=== PATIENT | male | born 1955 | race Caucasian/White ===

== ENCOUNTER 2016-12-16 15:30 | Inpatient (IN) | payer MEDICAID ==
[2016-12-16] VITALS (12 sets, daily range): BP systolic 132–171; BP diastolic 79–103; PULSE 68–81; RESP 15–22; TEMP 97.5–98.9; O2SAT 97–100
[~2016-12-16] VITALS: Ht 170.2 cm; Wt 55.0 kg
[~2016-12-16 15:30] MED LIST: 1-ME1LIQ OR; CIPR500T4 PO; DILA4TAB10 PO; HYDR12.56 PO; LACT20SO4 PO; ZOFR4TAB3 SL; [UNRECOGNIZED DRUG - CODE] PO
--- NOTE | 2016-12-16 15:57 | PD ---
HPI Chief Complaint: Chest Pain Time Seen by Provider: 15:49 Travel History International Travel<30 days: No Contact w/Intl Traveler<30days: No Traveled to known affect area: No History of Present Illness HPI This is a 61 year-old gentleman with a history of hepatocellular carcinoma, hepatitis C, presents today with complaint of left sided chest pain. Patient reports pleuritic pain. He reports pain with movement. He states pain is sharp and stabbing. He reports it's unrelenting. Patient denies any shortness of breath. He does report cough but is unsure whether there is color to his phlegm. The patient denies any abdominal pain. He does have an episode of vomiting bilious material. There are no other complaints time my examination. PFSH Past Medical History Blood Disorders: No Anxiety: Yes Heart Rhythm Problems: No Cancer: Yes (SKIN AND LIVER CANCER) Cardiac Catheterization: No Cardiovascular Problems: Yes High Cholesterol: Yes Congestive Heart Failure: No Diabetes: No Diminished Hearing: No Endocrine: No Genitourinary: No Hepatitis: Yes Hiatal Hernia: No Hypertension: Yes Immune Disorder: No Musculoskeletal: No Neurologic: No Psychiatric: Yes Reproductive: No Respiratory: No Integumentary: Yes (SKIN CANCER ON FACE) Immunizations Current: No Radiation Therapy: Yes (LIVER 10/01/12) Thyroid Disease: No Past Surgical History Abdominal Surgery: No AICD: No Cardiac Surgery: No Coronary Artery Bypass Graft: No Ear Surgery: No Endocrine Surgery: No Eye Surgery: No Genitourinary Surgery: No Gynecologic Surgery: No Joint Replacement: No Oral Surgery: No Pacemaker: No Thoracic Surgery: No Other Surgery: Yes (MRSA, SKIN CANCER X3) Social History Alcohol Use: No Tobacco Use: Yes (1 PPD) Substance Use: Yes (HX OF COCAINE; PT STATES NOT FOR SEVERAL YEARS) Allergies-Medications (Allergen,Severity, Reaction): Coded Allergies: *MDRO Multi-Drug Resistant Organism (Verified Allergy, 07/30/12) MRSA Wound/Skin 11/2011 Reported Meds & Prescriptions Reported Meds & Active Scripts Active Zofran ODT (Ondansetron HCl) 4 Mg Tab 4 Mg SL QID PRN FOR NAUSEA/VOMITING Cipro (Ciprofloxacin HCl) 500 Mg Tab 500 Mg PO BID Hctz (Hydrochlorothiazide) 12.5 Mg Cap 12.5 Mg PO DAILY Amlodipine Besylate 10 Mg Tab 10 Mg OR DAILY Reported Nexavar (Sorafenib Tosylate) 200 Mg Tab 200 Mg PO DAILY Dilaudid (Hydromorphone HCl) 4 Mg Tab 4 Mg PO Q6HPRN Lactulose 30 Ml Syrp 30 Ml PO BID Review of Systems Except as stated in HPI: all other systems reviewed are Neg General / Constitutional: No: Fever, Chills HENT: No: Headaches, Neck Pain Cardiovascular: Positive: Chest Pain or Discomfort (left sided. Sharp stabbing ), No: Palpitations ( 8-9 out of 10 on the pain scale) Respiratory: Positive: Cough, Pleuritic Pain, No: Shortness of Breath, Wheezing , Hemoptysis Gastrointestinal: Positive: Nausea, Vomiting, No: Diarrhea, Abdominal Pain, Hematemesis, Hematochezia Genitourinary: No: Dysuria, Decreased Urinary Output Musculoskeletal: Positive: Pain, No: Weakness Neurologic: Positive: Weakness, No: Dizziness, Headache, Change in Mentation Physical Exam Narrative GENERAL: Ill appearing gentleman in no acute respiratory distress. Patient is complaining of pain. SKIN: Focused skin assessment warm/dry. Patient has multiple excoriated lesions. No cellulitis. No drainage. HEAD: Atraumatic. Normocephalic. EYES: No scleral icterus. No injection or drainage. ENT: No nasal bleeding or discharge. Mucous membranes pink and moist. NECK: Trachea midline. No JVD. Supple. CARDIOVASCULAR: Regular rate and rhythm. No murmur appreciated. Patient has reproducible pain in his left anterior chest wall. There is no deformity. RESPIRATORY: No accessory muscle use. Clear to auscultation. Breath sounds equal bilaterally. GASTROINTESTINAL: Abdomen soft, non-tender, nondistended. MUSCULOSKELETAL: No obvious deformities. No clubbing. No cyanosis. No edema. NEUROLOGICAL: Awake and weak appearing. No obvious cranial nerve deficits. Motor grossly within normal limits. Normal speech. PSYCHIATRIC: Depressed affect. Data Data Last Documented VS Vital Signs Date Time Temp Pulse Resp B/P (MAP) Pulse Ox O2 Delivery O2 Flow Rate FiO2 12/16/16 17:00 81 16 167/95 (119) 97 12/16/16 15:40 Nasal Cannula 2.00 12/16/16 15:35 98.9 Orders Orders Electrocardiogram (12/16/16 16:01) Basic Metabolic Panel (Bmp) (12/16/16 16:01) Ckmb (Isoenzyme) Profile (12/16/16 16:01) Complete Blood Count With Diff (12/16/16 16:01) Magnesium (Mg) (12/16/16 16:01) Prothrombin Time / Inr (Pt) (12/16/16 16:01) Act Partial Throm Time (Ptt) (12/16/16 16:01) Troponin I (12/16/16 16:01) Lipase (12/16/16 16:01) Ecg Monitoring (12/16/16 16:01) Bilateral Bp Monitoring (12/16/16 16:01) Iv Access Insert/Monitor (12/16/16 16:01) Oximetry (12/16/16 16:01) Oxygen Administration (12/16/16 16:01) Sodium Chloride 0.9% Flush (Ns Flush) (12/16/16 16:15) Chest, Pa & Lat (12/16/16 16:01) Ondansetron Inj (Zofran Inj) (12/16/16 16:15) Hydromorphone Pf Inj (Dilaudid Pf Inj) (12/16/16 16:15) Sodium Chlorid 0.9% 500 Ml Inj (Ns 500 M (12/16/16 16:15) Sodium Chlor 0.9% 1000 Ml Inj (Ns 1000 M (12/16/16 16:15) CKMB (12/16/16 16:05) CKMB% (12/16/16 16:05) Heparin Infusion HELEN.Q1H (12/16/16 17:12) Heparin Inj (Heparin Inj) (12/16/16 17:15) Act Partial Throm Time (Ptt) (12/16/16 17:12) Cbc No Diff, Includes Plts (12/16/16 17:12) Cbc No Diff, Includes Plts (12/19/16 06:00) Act Partial Throm Time (Ptt) (12/17/16 00:12) Occult Blood (Hemoccult) Stool (12/16/16 17:12) Aspirin Chew (Aspirin Chew) (12/16/16 17:15) Nitroglycerin 2% Oint (Nitroglycerin 2% (12/16/16 17:15) Consult Cardiology (12/16/16 ) Admit Order (Ed Use Only) (12/16/16 17:16) Labs Laboratory Tests Test 12/16/16 16:05 White Blood Count 19.6 TH/MM3 Red Blood Count 5.50 MIL/MM3 Hemoglobin 15.2 GM/DL Hematocrit 45.3 % Mean Corpuscular Volume 82.4 FL Mean Corpuscular Hemoglobin 27.6 PG Mean Corpuscular Hemoglobin Concent 33.5 % Red Cell Distribution Width 15.4 % Platelet Count 197 TH/MM3 Mean Platelet Volume 10.2 FL Neutrophils (%) (Auto) 93.7 % Lymphocytes (%) (Auto) 2.3 % Monocytes (%) (Auto) 3.7 % Eosinophils (%) (Auto) 0.0 % Basophils (%) (Auto) 0.3 % Neutrophils # (Auto) 18.4 TH/MM3 Lymphocytes # (Auto) 0.5 TH/MM3 Monocytes # (Auto) 0.7 TH/MM3 Eosinophils # (Auto) 0.0 TH/MM3 Basophils # (Auto) 0.1 TH/MM3 CBC Comment DIFF FINAL Differential Comment Prothrombin Time 11.3 SEC Prothromb Time International Ratio 1.0 RATIO Activated Partial Thromboplast Time 24.5 SEC Blood Urea Nitrogen 9 MG/DL Creatinine 1.09 MG/DL Random Glucose 171 MG/DL Calcium Level 9.0 MG/DL Magnesium Level 1.9 MG/DL Sodium Level 135 MEQ/L Potassium Level 3.1 MEQ/L Chloride Level 100 MEQ/L Carbon Dioxide Level 24.7 MEQ/L Anion Gap 10 MEQ/L Estimat Glomerular Filtration Rate 69 ML/MIN Total Creatine Kinase 701 U/L Creatine Kinase MB 89.7 NG/ML Creatine Kinase MB % 12.8 % Troponin I 3.97 NG/ML Lipase 90 U/L [facility] Medical Decision Making Medical Screen Exam Complete: Yes Emergency Medical Condition: Yes Differential Diagnosis ACS versus pneumonia versus pneumothorax versus pleural effusion versus metabolic derangement Narrative Course 61-year-old male with a history of hepatocellular cancer, presents today with complaints of chest pain with associated nausea vomiting. Patient's describes it as sharp stabbing. He reports reproducible in his left upper chest. He also reports pain with movement from side to side. Patient has no cardiac history. EKG shows LVH with what appears to be strain pattern. He had ST depression in his lateral leads.He is he's been given an aspirin. He is also been started on heparin. 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 Diagnosis Primary Impression: Non-ST elevation CT (NSTEMI) Additional Impressions: hepatocellular cancer by history. Leukocytosis Admitting Information Admitting Physician Requests: Admit Condition: Critical Varinder Shipman MD Dec 16, 2016 15:57
[2016-12-16] MEDS ORDERED: SODIUM CHLORID 0.9% 500 ML INJ 500 ML IV ONE (16:15)
[2016-12-16] MEDS ORDERED: ONDANSETRON HCL 4 MG/2 ML VIAL IVP ONE (16:15)
[2016-12-16] MEDS ORDERED: SODIUM CHLORIDE 0.9% FLUSH 10 ML FLUSH IVF PRN (16:15)
[2016-12-16] MEDS ORDERED: HYDROmorphone HCL PF 1 MG/ML VIAL IVS ONE (16:15)
[2016-12-16] MEDS: SODIUM CHLOR 0.9% 1000 ML INJ 1,000 ML IV SCH (16:32)
[2016-12-16 16:34] LABS: APTT (PATIENT) 24.5 SEC (24.3-30.1); PROTHROMBIN TIME - PATIENT 11.3 SEC (9.8-11.6)
[2016-12-16 16:40] LABS: AUTOMATED NEUTROPHIL # 18.4 TH/MM3 (1.8-7.7); BASOPHIL # 0.1 TH/MM3 (0-0.2); BASOPHIL % 0.3 % (0.0-2.0); HEMATOCRIT 45.3 % (39.0-51.0); HEMO FLAGS DIFF FINAL; LYMPH % 2.3 % (9.0-44.0); LYMPHOCYTE # 0.5 TH/MM3 (1.0-4.8); MEAN CELL VOLUME 82.4 FL (80.0-100.0); MEAN CORPUSCULAR HEMOGLOBIN 27.6 PG (27.0-34.0); MEAN CORPUSCULAR HGB CONC 33.5 % (32.0-36.0); MONO % 3.7 % (0.0-8.0); NEUT % 93.7 % (16.0-70.0); PLATELET COUNT 197 TH/MM3 (150-450); RED CELL DISTRIBUTION WIDTH 15.4 % (11.6-17.2); WHITE BLOOD COUNT 19.6 TH/MM3 (4.0-11.0)
[2016-12-16 17:00] LABS: BICARBONATE 24.7 MEQ/L (21.0-32.0); MAGNESIUM 1.9 MG/DL (1.5-2.5); POTASSIUM 3.1 MEQ/L (3.5-5.1)
--- NOTE | 2016-12-16 17:06 | RADRPT ---
EXAM DATE/TIME: 12/16/2016 16:30 [place] COMPARISON: No previous studies available for comparison. INDICATIONS : Chest pain. MEDICAL HISTORY : Hypercholesterolemia. Hypertension SURGICAL HISTORY : None. ENCOUNTER: Initial ACUITY: 1 day PAIN SCORE: 9/10 LOCATION: Bilateral chest Upper Left. FINDINGS: PA and lateral views of the chest demonstrate the lungs to be symmetrically aerated without evidence of mass, infiltrate or effusion. The cardiomediastinal contours are unremarkable. Osseous structure s are intact. CONCLUSION: No acute disease. Jabier Rodríguez MD FACR on December 16, 2016 at 17:02 Board Certified Radiologist. This report was verified electronically.
[2016-12-16 17:15] LABS: CKMB 89.7 NG/ML (0.5-3.6)
[2016-12-16] MEDS ORDERED: ASPIRIN 81 MG CHEW TAB CHEW ONE (17:15)
[2016-12-16] MEDS: HEPARIN SODIUM - IV 10,000 UNITS/10 ML VIAL IV ONE ×2 (17:15→17:55)
[2016-12-16] MEDS ORDERED: NITROGLYCERIN 2% OINT 1 GM PACKET TOPICAL ONE (17:15)
[2016-12-16] MEDS ORDERED: HEPARIN-D5W 25,000 U/250 ML 250 ML IV PRN ×3 (17:41→18:00)
[2016-12-16] MEDS ORDERED: MAGNESIUM HYDROXIDE SUSP 30 ML CUP PO PRN (18:00)
[2016-12-16] MEDS ORDERED: BISACODYL 10 MG SUPP RECTAL PRN (18:00)
[2016-12-16] MEDS ORDERED: HEPARIN SODIUM - IV 10,000 UNITS/10 ML VIAL IV ONE (18:00)
[2016-12-16] MEDS ORDERED: ACETAMINOPHEN 325 MG TAB PO PRN ×2 (18:00)
[2016-12-16] MEDS ORDERED: MORPHINE SULFATE 4 MG/ML INJ IV PRN ×3 (18:00)
[2016-12-16] MEDS ORDERED: SODIUM CHLORIDE 0.9% FLUSH 10 ML FLUSH IV FLUSH PRN ×2 (18:00)
[2016-12-16] MEDS ORDERED: ONDANSETRON HCL 4 MG/2 ML VIAL IVP PRN (18:00)
[2016-12-16] MEDS ORDERED: oxyCODONE/ACETAMINOPHEN 10 MG/325 MG TAB PO PRN (18:00)
[2016-12-16] MEDS ORDERED: DOCUSATE SODIUM 100 MG CAP PO PRN (18:00)
[2016-12-16] MEDS ORDERED: NITROGLYCERIN 0.4 MG SL 25 TABS/BTL SL PRN (18:00)
[2016-12-16] MEDS ORDERED: ONDANSETRON HCL 4 MG/2 ML VIAL IV PRN (18:00)
[2016-12-16] MEDS ORDERED: LACTULOSE SYRUP 20 GM/30 ML CUP PO PRN (18:00)
[2016-12-16] MEDS ORDERED: NALOXONE HCL 0.4 MG/ML AMP IV PRN (18:00)
[2016-12-16] MEDS ORDERED: PROCHLORPERAZINE 25 MG SUPP RECTAL PRN (18:00)
[2016-12-16] MEDS ORDERED: oxyCODONE/ACETAMINOPHEN 5 MG/325 MG TAB PO PRN (18:00)
[2016-12-16] MEDS ORDERED: SENNOSIDES 8.6 MG TAB PO PRN (18:00)
[2016-12-16] MEDS ORDERED: HYDROmorphone HCL 4 MG TAB PO PRN (18:15)
[2016-12-16] MEDS ORDERED: ONDANSETRON ODT 4 MG TAB SL PRN (18:15)
--- NOTE | 2016-12-16 18:24 | HHI.HP ---
[facility] No Primary Care Physician Admission Diagnosis Non stemi, Diagnoses: (1) Non-ST elevation AK (NSTEMI) Diagnosis: Principal (2) Leukocytosis Diagnosis: Secondary (3) Skin lesion Diagnosis: Secondary (4) Liver cancer Diagnosis: Secondary Chief Complaint: Chest pain Travel History International Travel<30 Days: No Contact w/Intl Traveler <30 Da: No Traveled to Known Affected Are: No History of Present Illness This is a 61 year-old gentleman with a history of hepatocellular carcinoma, hepatitis C, presents today with complaint of left sided chest pain. Patient reports pleuritic pain. He reports pain with movement. He states pain is sharp and stabbing. He reports it's unrelenting. Patient denies any shortness of breath. He does report cough but is unsure whether there is color to his phlegm. The patient denies any abdominal pain. He does have an episode of vomiting bilious material. There are no other complaints time my examination. he was found to have a non-ST elevation AK with positive troponins. Will be admitted placed on heparin drip consult cardiology and trend troponins as well as get an echocardiogram Review of Systems Constitutional: COMPLAINS OF: Diaphoretic episodes, DENIES: Fatigue, Fever, Weight gain, Weight loss, Chills, Dizziness Endocrine: DENIES: Heat/cold intolerance, Polydipsia, Polyuria, Polyphagia Eyes: DENIES: Blurred vision, Diplopia, Eye inflammation, Eye pain, Vision loss , Photosensitivity Ears, nose, mouth, throat: DENIES: Tinnitus, Hearing loss, Vertigo, Nasal discharge Respiratory: COMPLAINS OF: Cough, Sputum production, Shortness of breath, DENIES: Apneas, Snoring, Wheezing, Hemoptysis Cardiovascular: COMPLAINS OF: Chest pain, Dyspnea on Exertion, DENIES: Palpitations, Syncope Gastrointestinal: DENIES: Abdominal pain, Black stools, Bloody stools, Constipation, Diarrhea Genitourinary: DENIES: Sexual dysfunction, Urinary frequency, Urinary incontinence Musculoskeletal: DENIES: Joint pain, Muscle aches, Stiffness, Joint Swelling Integumentary: COMPLAINS OF: Abnormal pigmentation (multiple skin cancers), DENIES: Nail changes Hematologic/lymphatic: DENIES: Bruising, Lymphadenopathy Immunologic/allergic: DENIES: Eczema, Urticaria Neurologic: DENIES: Abnormal gait, Headache, Localized weakness, Paresthesias Psychiatric: DENIES: Anxiety, Confusion, Mood changes Past Family Social History Past Medical History Anxiety Skin and liver cancer Hyperlipidemia Hepatitis C Hypertension Depression anxiety History of radiation for liver cancer Past Surgical History History of MRSA and skin cancer 3 Reported Medications Reported Meds & Active Scripts Active Zofran ODT (Ondansetron HCl) 4 Mg Tab 4 Mg SL QID PRN FOR NAUSEA/VOMITING Cipro (Ciprofloxacin HCl) 500 Mg Tab 500 Mg PO BID Hydrochlorothiazide (Miscellaneous Medication) 12.5 Mg Cap 12.5 Mg PO DAILY 1-Methyl 2-Pyrrolidinone (1-Methyl 2-Pyrrolidone (Bulk)) 10 Mg Tab 10 Mg OR DAILY Reported Nexavar (Sorafenib Tosylate) 200 Mg Tab 200 Mg PO DAILY Dilaudid (Hydromorphone HCl) 4 Mg Tab 4 Mg PO Q6HPRN Lactulose 30 Ml Syrp 30 Ml PO BID Allergies: Coded Allergies: *MDRO Multi-Drug Resistant Organism (Verified Allergy, 07/30/12) MRSA Wound/Skin 11/2011 Active Ordered Medications Current Medications Sodium Chloride (NS Flush) 2 ml UNSCH PRN IVF FLUSH AFTER USING IV ACCESS; Start 12/16/16 at 16:15 Ondansetron HCl (Zofran Inj) 4 mg ONCE ONCE IVP Last administered on 16:33; Start 12/16/16 at 16:15; Stop 12/16/16 at 16:16; Status DC Hydromorphone HCl (Dilaudid Pf Inj) 1 mg ONCE ONCE IVS Last administered on 16:34; Start 12/16/16 at 16:15; Stop 12/16/16 at 16:16; Status DC Sodium Chloride 500 ml @ 500 mls/hr BOLUS ONCE IV Last administered on 16:33; Start 12/16/16 at 16:15; Stop 12/16/16 at 17:14; Status DC Sodium Chloride 1,000 ml @ 125 mls/hr Q8H IV Last administered on 12/16/16 16 :32; Start 12/16/16 at 16:15 Heparin Sodium (Porcine) (Heparin Inj) 3,900 units ONCE ONCE IV ; Start at 17:15; Stop 12/16/16 at 18:00; Status DC Aspirin (Aspirin Chew) 324 mg ONCE ONCE CHEW Last administered on 12/16/16 17 :55; Start 12/16/16 at 17:15; Stop 12/16/16 at 17:16; Status DC Nitroglycerin (Nitroglycerin 2% Oint) 1 inch ONCE ONCE TOPICAL Last administered on 12/16/16 17:55; Start 12/16/16 at 17:15; Stop 12/16/16 at 17:17 ; Status DC Heparin Sodium/ Dextrose 250 ml @ 7.8 mls/hr Q32H4M PRN IV Coagulation management; Start 12/16/16 at 17:41; Status Cancel Heparin Sodium (Porcine) (Heparin Inj) 3,200 units ONCE ONCE IV ; Start at 18:00; Stop 12/16/16 at 18:02; Status DC Heparin Sodium/ Dextrose 250 ml @ 6.36 mls/hr [id number] PRN IV Coagulation management; Start 12/16/16 at 18:00 Sodium Chloride (NS Flush) 2 ml BID IV FLUSH ; Start 12/16/16 at 21:00; Status UNV Sodium Chloride (NS Flush) 2 ml UNSCH PRN IV FLUSH FLUSH AFTER USING IV ACCESS ; Start 12/16/16 at 18:00; Status UNV Aspirin (Ecotrin Ec) 325 mg DAILY PO ; Start 12/17/16 at 09:00; Status UNV Nitroglycerin (Nitroglycerin 2% Oint) 1 inch Q6H TOP ; Start 12/16/16 at 18:00; Status UNV Nitroglycerin (Nitrostat Sl) 0.4 mg Q5M PRN SL CHEST PAIN; Start 12/16/16 at 18 :00; Status UNV Morphine Sulfate (Morphine Inj) 4 mg Q3H PRN IV PUSH SEVERE PAIN/CHEST PAIN; Start 12/16/16 at 18:00; Status UNV Acetaminophen (Tylenol) 650 mg Q6H PRN PO HEADACHE OR TEMP > 101 F; Start 12/16 at 18:00; Status UNV Docusate Sodium (Colace) 100 mg BID PRN PO CONSTIPATION; Start 12/16/16 at 18: 00; Status UNV Alprazolam (Xanax) 0.25 mg Q8H PRN PO ANXIETY; Start 12/16/16 at 18:00; Status UNV Ondansetron HCl (Zofran Inj) 4 mg Q6H PRN IV NAUSEA OR VOMITING; Start at 18:00; Status UNV Carvedilol (Coreg) 3.125 mg BID PO ; Start 12/16/16 at 21:00; Status UNV Ramipril (Altace) 2.5 mg DAILY PO ; Start 12/17/16 at 09:00; Status UNV Atorvastatin Calcium (Lipitor) 80 mg HS PO ; Start 12/16/16 at 21:00; Status UNV Heparin Sodium/ Dextrose 250 ml @ 6.36 mls/hr [id number] PRN IV Coagulation management; Start 12/16/16 at 17:54; Status UNV Sodium Chloride (NS Flush) 2 ml UNSCH PRN IV FLUSH FLUSH AFTER USING IV ACCESS ; Start 12/16/16 at 18:00; Status UNV Sodium Chloride (NS Flush) 2 ml BID IV FLUSH ; Start 12/16/16 at 21:00; Status UNV Ondansetron HCl (Zofran Inj) 4 mg Q6H PRN IVP NAUSEA OR VOMITING; Start at 18:00; Status UNV Prochlorperazine (Compazine Supp) 25 mg Q12H PRN HI NAUSEA OR VOMITING; Start 12/16/16 at 18:00; Status UNV Zolpidem Tartrate (Ambien) 5 mg HS PRN PO INSOMNIA; Start 12/16/16 at 18:00; Status UNV Acetaminophen (Tylenol) 650 mg Q6H PRN PO PAIN SCALE 1 TO 2; Start 12/16/16 at 18:00; Status UNV Oxycodone/ Acetaminophen (Percocet 5-325 Mg) 1 tab Q6H PRN PO PAIN SCALE 3 TO 5; Start 12/16/16 at 18:00; Status UNV Oxycodone/ Acetaminophen (Percocet 10-325 Mg) 1 tab Q6H PRN PO PAIN SCALE 6 TO 10; Start 12/16/16 at 18:00; Status UNV Morphine Sulfate (Morphine Inj) 2 mg Q3H PRN IV Pain 3-5; if unable to take PO ; Start 12/16/16 at 18:00; Status UNV Morphine Sulfate (Morphine Inj) 4 mg Q3H PRN IV Pain 6-10;if unable to take PO ; Start 12/16/16 at 18:00; Status UNV Morphine Sulfate (Morphine Inj) 4 mg Q3H PRN IV BREAKTHROUGH PAIN; Start at 18:00; Status UNV Naloxone HCl (Narcan Inj) 0.4 mg UNSCH PRN IV SEE LABEL COMMENTS; Start at 18:00; Status UNV Senna/Docusate Sodium (Kim-Colace) 1 tab BID PO ; Start 12/16/16 at 21:00; Status UNV Magnesium Hydroxide (Milk Of Magnesia Liq) 30 ml Q12H PRN PO MILD - MODERATE CONSTIPATION; Start 12/16/16 at 18:00; Status UNV Sennosides (Senokot) 17.2 mg Q12H PRN PO MODERATE - SEVERE CONSTIPATION; Start 12/16/16 at 18:00; Status UNV Bisacodyl (Dulcolax Supp) 10 mg DAILY PRN RECTAL SEVERE CONSITIPATION; Start at 18:00; Status UNV Lactulose (Lactulose Liq) 30 ml DAILY PRN PO SEVERE CONSITIPATION; Start at 18:00; Status UNV Hydromorphone HCl (Dilaudid) 4 mg Q4H PRN PO PAIN6-10 BREAKTHRU; Start at 18:15; Status UNV Ondansetron HCl (Zofran Odt) 4 mg QID PRN SL NAUSEA OR VOMITING; Start at 18:15; Status UNV Non-Formulary Medication 10 mg DAILY .ROUTE ; Start 12/17/16 at 09:00; Status UNV Non-Formulary Medication 200 mg DAILY PO ; Start 12/17/16 at 09:00; Status UNV Family History Tobacco abuse and hypertension Social History Patient denies any alcohol smokes about a pack per day has a previous history of cocaine in the past none recently Physical Exam Vital Signs Vital Signs Date Time Temp Pulse Resp B/P (MAP) Pulse Ox O2 Delivery O2 Flow Rate FiO2 8/28/17 17:00 81 16 167/95 (119) 97 12/16/16 16:00 69 16 157/88 (111) 97 12/16/16 15:40 85 24 100 12/16/16 15:40 99 Nasal Cannula 2.00 12/16/16 15:35 98.9 74 15 132/79 (96) 100 Physical Exam GENERAL well-developed patient, in some distress. Patient appears quite cachectic and appears ordered and stated age SKIN: No rashes, ecchymoses or lesions. Cool and dry. Has multiple areas where has skin cancer over his body HEAD: Atraumatic. Normocephalic. No temporal or scalp tenderness. EYES: Pupils equal round and reactive. Extraocular motions intact. No scleral icterus. No injection or drainage. ENT: Nose without bleeding, purulent drainage or septal hematoma. Throat without erythema, tonsillar hypertrophy or exudate. Uvula midline. Airway patent. NECK: Trachea midline. No JVD or lymphadenopathy. Supple, nontender, no meningeal signs. CARDIOVASCULAR: Regular rate and rhythm without murmurs, gallops, or rubs. S1 and S2 no S3 or S4 RESPIRATORY: Clear to auscultation. Breath sounds equal bilaterally. No wheezes , rales, or rhonchi. Coarse breath sounds bilaterally GASTROINTESTINAL: Abdomen soft, non-tender, nondistended. No hepato-splenomegaly , or palpable masses. No guarding. MUSCULOSKELETAL: Extremities without clubbing, cyanosis, or edema. No joint tenderness, effusion, or edema noted. No calf tenderness. Negative Homans sign bilaterally. NEUROLOGICAL: Awake and alert. Cranial nerves II through XII intact. Motor and sensory grossly within normal limits. Five out of 5 muscle strength in all muscle groups. Normal speech. Insight and judgment appear good mood and behavior is somewhat appropriate Laboratory Laboratory Tests Test 12/16/16 16:05 White Blood Count 19.6 Red Blood Count 5.50 Hemoglobin 15.2 Hematocrit 45.3 Mean Corpuscular Volume 82.4 Mean Corpuscular Hemoglobin 27.6 Mean Corpuscular Hemoglobin Concent 33.5 Red Cell Distribution Width 15.4 Platelet Count 197 Mean Platelet Volume 10.2 Neutrophils (%) (Auto) 93.7 Lymphocytes (%) (Auto) 2.3 Monocytes (%) (Auto) 3.7 Eosinophils (%) (Auto) 0.0 Basophils (%) (Auto) 0.3 Neutrophils # (Auto) 18.4 Lymphocytes # (Auto) 0.5 Monocytes # (Auto) 0.7 Eosinophils # (Auto) 0.0 Basophils # (Auto) 0.1 CBC Comment DIFF FINAL Differential Comment Prothrombin Time 11.3 Prothromb Time International Ratio 1.0 Activated Partial Thromboplast Time 24.5 Blood Urea Nitrogen 9 Creatinine 1.09 Random Glucose 171 Calcium Level 9.0 Magnesium Level 1.9 Sodium Level 135 Potassium Level 3.1 Chloride Level 100 Carbon Dioxide Level 24.7 Anion Gap 10 Estimat Glomerular Filtration Rate 69 Total Creatine Kinase 701 Creatine Kinase MB 89.7 Creatine Kinase MB % 12.8 Troponin I 3.97 Lipase 90 Result Diagram: 12/16/16 1605 12/16/16 1605 Imaging Chest x-ray shows no acute disease Caprini VTE Risk Assessment Caprini VTE Risk Assessment: Mod/High Risk (score >= 2) Caprini Risk Assessment Model Point Value = 1 Point Value = 2 Point Value = 3 Point Value = 5 Age 41-60 Minor surgery BMI > 25 kg/m2 Swollen legs Varicose veins or History of unexplained or recurrent spontaneous Oral contraceptives or hormone replacement Sepsis (< 1 month) Serious lung disease, including pneumonia (< 1 month) Abnormal pulmonary function Acute myocardial infarction Congestive heart failure (< 1 month) History of inflammatory bowel disease Medical patient at bed rest Age 61-74 Arthroscopic surgery Major open surgery (> 45 min) Laparoscopic surgery (> 45 min) Malignancy Confined to bed (> 72 hours) Immobilizing plaster cast Central venous access Age >= 75 History of VTE Family history of VTE Factor V Leiden Prothrombin [id number] Lupus anticoagulant Anticardiolipin antibodies Elevated serum homocysteine Heparin-induced thrombocytopenia Other congenital or acquired thrombophilia Stroke (< 1 month) Elective arthroplasty Hip, pelvis, or leg fracture Acute spinal cord injury (< 1 month) Prophylaxis Regimen Total Risk Factor Score Risk Level Prophylaxis Regimen 0-1 Low Early ambulation 2 Moderate Order ONE of the following: *Sequential Compression Device (SCD) *Heparin 5000 units SQ BID 3-4 Higher Order ONE of the following medications: *Heparin 5000 units SQ TID *Enoxaparin/Lovenox 40 mg SQ daily (WT < 150 kg, CrCl > 30 mL/min) *Enoxaparin/Lovenox 30 mg SQ daily (WT < 150 kg, CrCl > 10-29 mL/min) *Enoxaparin/Lovenox 30 mg SQ BID (WT < 150 kg, CrCl > 30 mL/min) AND/OR *Sequential Compression Device (SCD) 5 or more Highest Order ONE of the following medications: *Heparin 5000 units SQ TID (Preferred with Epidurals) *Enoxaparin/Lovenox 40 mg SQ daily (WT < 150 kg, CrCl > 30 mL/min) *Enoxaparin/Lovenox 30 mg SQ daily (WT < 150 kg, CrCl > 10-29 mL/min) *Enoxaparin/Lovenox 30 mg SQ BID (WT < 150 kg, CrCl > 30 mL/min) AND *Sequential Compression Device (SCD) Assessment and Plan Problem List: (1) Hypertension ICD Code: I10 - Essential (primary) hypertension (2) Anxiety ICD Code: F41.9 - Anxiety disorder, unspecified (3) Depression ICD Code: F32.9 - Major depressive disorder, single episode, unspecified (4) Tobacco abuse ICD Code: Z72.0 - Tobacco use (5) Hepatitis C ICD Code: B19.20 - Unspecified viral hepatitis C without hepatic coma (6) Liver cancer ICD Code: C22.9 - Malignant neoplasm of liver, not specified as primary or secondary (7) Skin lesion ICD Code: L98.9 - Skin lesion Status: Acute (8) Non-ST elevation AK (NSTEMI) ICD Code: I21.4 - Non-ST elevation (NSTEMI) myocardial infarction Status: Acute (9) Leukocytosis ICD Code: D72.829 - Elevated white blood cell count, unspecified Status: Acute Assessment and Plan Non-ST elevation AK we'll trend troponins consult cardiology continue on heparin drip continue on aspirin and Nitropaste We'll get an echocardiogram Pain control Hepatocellular carcinoma and history of hepatitis C still undergoing treatment with oral chemotherapy Leukocytosis a.m. labs and trend Hypertension home meds Hyperlipidemia home meds Tobacco abuse smoking cessation recommended Anxiety and anti-anxiety medications Code Status Full code Discussed Condition With ER physician ER nurse and patient Physician Certification 2 Midnight Certification Type: Admission for Inpatient Services Order for Inpatient Services The services are ordered in accordance with Medicare regulations or non- Medicare payer requirements, as applicable. In the case of services not specified as inpatient-only, they are appropriately provided as inpatient services in accordance with the 2-midnight benchmark. Estimated LOS (days): 3 3 days is the estimated time the patient will need to remain in the hospital, assuming treatment plan goals are met and no additional complications. Post-Hospital Plan: Not yet determined Jabier Conti DO Dec 16, 2016 18:24
[2016-12-16] MEDS ORDERED: RESP: ALBUTEROL 2.5 MG/IPRATROPIUM 0.5 MG NEB (PRN) NEB (18:30)
[2016-12-16] MEDS: MORPHINE SULFATE 4 MG/ML INJ IV PRN (19:03)
[2016-12-16] MEDS ORDERED: NICOTINE 14 MG/24 HR PATCH T-DERMAL ONE (20:00)
[2016-12-16] MEDS: CARVEDILOL 3.125 MG TAB PO SCH (20:52)
[2016-12-16] MEDS: guaiFENesin E.R. 600 MG TAB PO SCH (21:00)
[2016-12-16] MEDS: LACTULOSE SYRUP 20 GM/30 ML CUP PO SCH (21:00)
[2016-12-16] MEDS: SODIUM CHLORIDE 0.9% FLUSH 10 ML FLUSH IV FLUSH SCH (21:00)
[2016-12-16] MEDS ORDERED: ATORVASTATIN 80 MG TAB PO SCH (21:00)
[2016-12-16] MEDS ORDERED: SODIUM CHLORIDE 0.9% FLUSH 10 ML FLUSH IV FLUSH SCH (21:00)
[2016-12-16] MEDS ORDERED: DOCUSATE SODIUM 50 MG/SENNA 8.6 MG TAB PO SCH (21:00)
[2016-12-17] VITALS (18 sets, daily range): BP systolic 136–178; BP diastolic 74–106; PULSE 76–115; RESP 18–20; TEMP 97.4–98.9; O2SAT 96–99
[2016-12-17] MEDS: MORPHINE SULFATE 4 MG/ML INJ IV PRN ×2 (00:14→03:36)
[2016-12-17] MEDS: SODIUM CHLOR 0.9% 1000 ML INJ 1,000 ML IV SCH ×3 (00:15→16:15)
[2016-12-17] MEDS: NITROGLYCERIN 2% OINT 1 GM PACKET TOP SCH ×4 (00:15→18:15)
[2016-12-17] MEDS: ZOLPIDEM TARTRATE 5 MG TAB PO PRN (00:15)
[2016-12-17 00:46] LABS: APTT (PATIENT) 31.1 SEC (24.3-30.1)
[2016-12-17 01:34] LABS: CREATINE KINASE 3153 U/L (39-308)
[2016-12-17 02:01] LABS: CKMB 486.6 NG/ML (0.5-3.6)
[2016-12-17] MEDS: HYDROmorphone HCL 2 MG TAB PO PRN ×4 (05:42→19:51)
--- NOTE | 2016-12-17 06:56 | MB ---
cc: ERIC INMAN DATE OF CONSULTATION 12/16/2016 HISTORY OF PRESENT ILLNESS A 61-year-old white male with a history of hepatocellular carcinoma and hepatitis C who presented with left parasternal chest discomfort which is sharp and stabbing. He has not had shortness of breath. He complains of cough. He has no previous cardiac history. He is a smoker. PAST MEDICAL HISTORY Positive for - 1. Anxiety. 2. Skin cancer. 3. Liver cancer. 4. Hyperlipidemia. 5. Hepatitis C. 6. Hypertension. 7. Depression. 8. Anxiety. 9. History of radiation for liver cancer . 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 11. Skin cancer surgery. MEDICATIONS 1. Lactulose. 2. Dilaudid. 3. Nexavar. 5. Hydrochlorothiazide. 6. Cipro. 7. Zofran. ALLERGIES No known medical allergies. SOCIAL HISTORY The patient is a smoker. He does not drink alcohol. He has a previous history of cocaine use. FAMILY HISTORY Negative for coronary artery disease. REVIEW OF SYSTEMS Otherwise negative. PHYSICAL EXAMINATION VITAL SIGNS: Blood pressure 168/94, pulse 70 and regular. HEENT: Negative. NECK: 2+ carotid upstrokes. No bruits. LUNGS: Clear. HEART: Regular. No murmur, gallop or rub. ABDOMEN: Soft. No bruits. EXTREMITIES: Without edema. 2+ distal pulses. NEUROLOGIC: Grossly nonfocal. SKIN: Multiple lesions. EKG Reviewed and showed normal sinus rhythm, LVH with minimal secondary ST-T changes. LABS Hemoglobin 15.2, potassium 3.1, creatinine 1.1, magnesium 1.9. CK 701, CK-MB 89.7, CK-MB index 12.8, troponin 3.94. DIAGNOSES 1. Uik-XS-affmfbllb myocardial infarction. 2. Hypertension. 3. Dyslipidemia. 4. Smoking. 5. Hepatocellular carcinoma, status post radiation. DISPOSITION 1. Mr. Olivera will be started on IV heparin, nitrates, beta isabel, aspirin and a statin. 2. We will obtain serial enzymes and EKGs. 3. He will be scheduled for cardiac catheterization and coronary intervention if necessary tomorrow. He understands the risks and benefits and wishes to proceed. Eric Inman MD OQ/TARA /7:11 PM /6:38 AM SHANTELLE
[2016-12-17 07:32] LABS: ANION GAP 12 MEQ/L (5-15); AST (GOT) 558 U/L (15-37); BICARBONATE 24.3 MEQ/L (21.0-32.0); BLOOD UREA NITROGEN 12 MG/DL (7-18); CHLORIDE 102 MEQ/L (98-107); GLOMERULAR FILTRATION RATE 138 ML/MIN (>89); MAGNESIUM 1.9 MG/DL (1.5-2.5); SODIUM (NA) 138 MEQ/L (136-145)
[2016-12-17 07:33] LABS: AUTOMATED NEUTROPHIL # 15.5 TH/MM3 (1.8-7.7); HEMATOCRIT 42.2 % (39.0-51.0); HEMO FLAGS DIFF FINAL; LYMPH % 7.7 % (9.0-44.0); LYMPHOCYTE # 1.3 TH/MM3 (1.0-4.8); MEAN CELL VOLUME 82.4 FL (80.0-100.0); MEAN CORPUSCULAR HEMOGLOBIN 27.3 PG (27.0-34.0); MEAN CORPUSCULAR HGB CONC 33.1 % (32.0-36.0); MONO % 3.3 % (0.0-8.0); PLATELET COUNT 189 TH/MM3 (150-450); RED BLOOD COUNT 5.12 MIL/MM3 (4.50-5.90); RED CELL DISTRIBUTION WIDTH 15.2 % (11.6-17.2); WHITE BLOOD COUNT 17.5 TH/MM3 (4.0-11.0)
[2016-12-17 07:40] LABS: ALKALINE PHOSPHATASE 92 U/L (45-117); ALT (GPT) 99 U/L (12-78); CREATINE KINASE 3229 U/L (39-308); HDL CHOLESTEROL 35.8 MG/DL (40.0-60.0); LDL CHOLESTEROL 104 MG/DL (0-99); TOTAL BILIRUBIN ADULT 0.5 MG/DL (0.2-1.0)
[2016-12-17 07:41] LABS: FREE T4 1.23 NG/DL (0.76-1.46)
[2016-12-17 07:44] LABS: POTASSIUM 2.8 MEQ/L (3.5-5.1)
[2016-12-17 08:21] LABS: CKMB 501.1 NG/ML (0.5-3.6)
--- NOTE | 2016-12-17 08:21 | HHI.PR ---
Subjective Remarks This is a 61 year-old gentleman with a history of hepatocellular carcinoma, hepatitis C, presents today with complaint of left sided chest pain. Patient reports pleuritic pain. He reports pain with movement. He states pain is sharp and stabbing. He reports it's unrelenting. Patient denies any shortness of breath. He does report cough but is unsure whether there is color to his phlegm. The patient denies any abdominal pain. He does have an episode of vomiting bilious material. There are no other complaints time my examination. he was found to have a non-ST elevation GA with positive troponins. Will be admitted placed on heparin drip consult cardiology and trend troponins as well as get an echocardiogram 12-17 replace potassium POSITIVE TROPONINS NEEDS CARDIAC CATH PAIN IS 10/10 AM LABS DW CARDIOLOGY HOPEFULLY FOR CARDIAC CATH TODAY DUE TO VERY POSITIVE TROPONINS Objective Vitals Vital Signs Date Time Temp Pulse Resp B/P (MAP) Pulse Ox O2 Delivery O2 Flow Rate FiO2 12/17/16 06:00 78 12/17/16 05:00 96 12/17/16 04:00 98.1 85 20 158/98 (118) 98 12/17/16 04:00 92 12/17/16 03:11 78 12/17/16 03:00 76 12/17/16 02:00 78 12/17/16 01:00 84 12/17/16 00:43 78 12/17/16 00:00 76 12/17/16 00:00 98.2 78 18 164/90 (114) 99 12/16/16 23:10 79 12/16/16 23:00 78 12/16/16 22:55 71 12/16/16 22:00 72 12/16/16 21:55 97.5 75 22 171/103 (125) 99 12/16/16 21:53 97 Nasal Cannula 2.00 12/16/16 21:50 12/16/16 19:09 70 168/94 (118) 98 Room Air 12/16/16 18:00 68 16 169/94 (119) 97 12/16/16 17:00 81 16 167/95 (119) 97 12/16/16 16:00 69 16 157/88 (111) 97 12/16/16 15:40 85 24 100 12/16/16 15:40 99 Nasal Cannula 2.00 12/16/16 15:35 98.9 74 15 132/79 (96) 100 I/O 12/16/16 12/16/16 12/16/16 12/17/16 12/17/16 12/17/16 07:00 15:00 23:00 07:00 15:00 23:00 Intake Total 758.30 ml 1125 ml Balance 758.30 ml 1125 ml Intake IV Total 758.30 ml 1125 ml # Voids 2 # Bowel Movements 0 Result Diagram: 12/17/16 0518 12/17/16 0518 Other Results Laboratory Tests Test 12/16/16 16:05 12/16/16 23:38 12/17/16 05:18 White Blood Count 19.6 TH/MM3 17.5 TH/MM3 Red Blood Count 5.50 MIL/MM3 5.12 MIL/MM3 Hemoglobin 15.2 GM/DL 14.0 GM/DL Hematocrit 45.3 % 42.2 % Mean Corpuscular Volume 82.4 FL 82.4 FL Mean Corpuscular Hemoglobin 27.6 PG 27.3 PG Mean Corpuscular Hemoglobin Concent 33.5 % 33.1 % Red Cell Distribution Width 15.4 % 15.2 % Platelet Count 197 TH/MM3 189 TH/MM3 Mean Platelet Volume 10.2 FL 10.4 FL Neutrophils (%) (Auto) 93.7 % 89.0 % Lymphocytes (%) (Auto) 2.3 % 7.7 % Monocytes (%) (Auto) 3.7 % 3.3 % Eosinophils (%) (Auto) 0.0 % 0.0 % Basophils (%) (Auto) 0.3 % 0.0 % Neutrophils # (Auto) 18.4 TH/MM3 15.5 TH/MM3 Lymphocytes # (Auto) 0.5 TH/MM3 1.3 TH/MM3 Monocytes # (Auto) 0.7 TH/MM3 0.6 TH/MM3 Eosinophils # (Auto) 0.0 TH/MM3 0.0 TH/MM3 Basophils # (Auto) 0.1 TH/MM3 0.0 TH/MM3 CBC Comment DIFF FINAL DIFF FINAL Differential Comment Prothrombin Time 11.3 SEC Prothromb Time International Ratio 1.0 RATIO Activated Partial Thromboplast Time 24.5 SEC 31.1 SEC Blood Urea Nitrogen 9 MG/DL 12 MG/DL Creatinine 1.09 MG/DL 0.60 MG/DL Random Glucose 171 MG/DL 116 MG/DL Calcium Level 9.0 MG/DL 8.4 MG/DL Magnesium Level 1.9 MG/DL 1.9 MG/DL Sodium Level 135 MEQ/L 138 MEQ/L Potassium Level 3.1 MEQ/L 2.8 MEQ/L Chloride Level 100 MEQ/L 102 MEQ/L Carbon Dioxide Level 24.7 MEQ/L 24.3 MEQ/L Anion Gap 10 MEQ/L 12 MEQ/L Estimat Glomerular Filtration Rate 69 ML/MIN 138 ML/MIN Total Creatine Kinase 701 U/L 3153 U/L 3229 U/L Creatine Kinase MB 89.7 NG/ML 486.6 NG/ML Creatine Kinase MB % 12.8 % 15.4 % Troponin I 3.97 NG/ML GREATER THAN 40.00 NG/ML GREATER THAN 40.00 NG/ML Lipase 90 U/L Total Protein 7.9 GM/DL Albumin 2.9 GM/DL Phosphorus Level 2.2 MG/DL Alkaline Phosphatase 92 U/L Aspartate Amino Transf (AST/SGOT) 558 U/L Alanine Aminotransferase (ALT/SGPT) 99 U/L Total Bilirubin 0.5 MG/DL Triglycerides Level 64 MG/DL Cholesterol Level 153 MG/DL LDL Cholesterol 104 MG/DL HDL Cholesterol 35.8 MG/DL Cholesterol/HDL Ratio 4.27 RATIO Free Thyroxine 1.23 NG/DL Thyroid Stimulating Hormone 3rd Gen 0.116 uIU/ML Imaging Last Impressions Chest X-Ray 12/16/16 1601 Signed Impressions: Service Date/Time: Friday, December 16, 2016 16:30 - CONCLUSION: No acute disease. Jabier Rodríguez MD FACR Objective Remarks GENERAL: HAVING PAIN EVERYWHERE SKIN: Warm and dry.MULTIPLE AREAS OF SKIN CANCER HEAD: Atraumatic. Normocephalic. EYES: Pupils equal and round. No scleral icterus. No injection or drainage. EOMI ENT: No nasal bleeding or discharge. Mucous membranes pink and moist. TONGUE MIDLINE NECK: Trachea midline. No JVD. CARDIOVASCULAR: Regular rate and rhythm. S1, S2 NO S3 OR S4 RESPIRATORY: No accessory muscle use. Clear to auscultation. Breath sounds equal bilaterally. GASTROINTESTINAL: Abdomen soft, non-tender, nondistended. Hepatic and splenic margins not palpable. MUSCULOSKELETAL: Extremities without clubbing, cyanosis, or edema. No obvious deformities. NEUROLOGICAL: Awake and alert. No obvious cranial nerve deficits. Motor grossly within normal limits. Five out of 5 muscle strength in the arms and legs. Normal speech. PSYCHIATRIC: Appropriate mood and affect; insight and judgment normal. Medications and IVs Current Medications Sodium Chloride (NS Flush) 2 ml UNSCH PRN IVF FLUSH AFTER USING IV ACCESS; Start 12/16/16 at 16:15; Stop 12/16/16 at 19:40; Status DC Ondansetron HCl (Zofran Inj) 4 mg ONCE ONCE IVP Last administered on 16:33; Start 12/16/16 at 16:15; Stop 12/16/16 at 16:16; Status DC Hydromorphone HCl (Dilaudid Pf Inj) 1 mg ONCE ONCE IVS Last administered on 16:34; Start 12/16/16 at 16:15; Stop 12/16/16 at 16:16; Status DC Sodium Chloride 500 ml @ 500 mls/hr BOLUS ONCE IV Last administered on 16:33; Start 12/16/16 at 16:15; Stop 12/16/16 at 17:14; Status DC Sodium Chloride 1,000 ml @ 125 mls/hr Q8H IV Last administered on 12/17/16 05 :22; Start 12/16/16 at 16:15 Heparin Sodium (Porcine) (Heparin Inj) 3,900 units ONCE ONCE IV ; Start at 17:15; Stop 12/16/16 at 18:00; Status DC Aspirin (Aspirin Chew) 324 mg ONCE ONCE CHEW Last administered on 12/16/16 17 :55; Start 12/16/16 at 17:15; Stop 12/16/16 at 17:16; Status DC Nitroglycerin (Nitroglycerin 2% Oint) 1 inch ONCE ONCE TOPICAL Last administered on 12/16/16 17:55; Start 12/16/16 at 17:15; Stop 12/16/16 at 17:17 ; Status DC Heparin Sodium/ Dextrose 250 ml @ 7.8 mls/hr Q32H4M PRN IV Coagulation management; Start 12/16/16 at 17:41; Status Cancel Heparin Sodium (Porcine) (Heparin Inj) 3,200 units ONCE ONCE IV Last administered on 12/16/16 18:15; Start 12/16/16 at 18:00; Stop 12/16/16 at 18:02 ; Status DC Heparin Sodium/ Dextrose 250 ml @ 6.36 mls/hr A76H80H PRN IV Coagulation management Last administered on 12/16/16 18:16; Start 12/16/16 at 18:00; Stop 12/16/16 at 19:40; Status DC Sodium Chloride (NS Flush) 2 ml BID IV FLUSH ; Start 12/16/16 at 21:00 Sodium Chloride (NS Flush) 2 ml UNSCH PRN IV FLUSH FLUSH AFTER USING IV ACCESS ; Start 12/16/16 at 18:00 Aspirin (Ecotrin Ec) 325 mg DAILY PO ; Start 12/17/16 at 09:00 Nitroglycerin (Nitroglycerin 2% Oint) 1 inch Q6H TOP Last administered on 05:23; Start 12/17/16 at 00:00 Nitroglycerin (Nitrostat Sl) 0.4 mg Q5M PRN SL CHEST PAIN; Start 12/16/16 at 18 :00 Morphine Sulfate (Morphine Inj) 4 mg Q3H PRN IV SEVERE PAIN/CHEST PAIN Last administered on 12/17/16 03:36; Start 12/16/16 at 18:45 Acetaminophen (Tylenol) 650 mg Q6H PRN PO HEADACHE OR TEMP > 101 F; Start 12/16 at 18:00 Docusate Sodium (Colace) 100 mg BID PRN PO CONSTIPATION; Start 12/16/16 at 18: 00; Stop 12/16/16 at 19:45; Status DC Alprazolam (Xanax) 0.25 mg Q8H PRN PO ANXIETY; Start 12/16/16 at 18:00 Ondansetron HCl (Zofran Inj) 4 mg Q6H PRN IV NAUSEA OR VOMITING; Start at 18:00; Stop 12/16/16 at 19:41; Status DC Carvedilol (Coreg) 3.125 mg BID PO Last administered on 12/16/16 20:52; Start 12/16/16 at 21:00 Ramipril (Altace) 2.5 mg DAILY PO ; Start 12/17/16 at 09:00 Atorvastatin Calcium (Lipitor) 80 mg HS PO Last administered on 12/16/16 21:19 ; Start 12/16/16 at 21:00 Heparin Sodium/ Dextrose 250 ml @ 6.36 mls/hr Q24H PRN IV Coagulation management Last administered on 12/16/16 20:38; Start 12/16/16 at 17:54 Sodium Chloride (NS Flush) 2 ml UNSCH PRN IV FLUSH FLUSH AFTER USING IV ACCESS ; Start 12/16/16 at 18:00; Stop 12/16/16 at 19:40; Status DC Sodium Chloride (NS Flush) 2 ml BID IV FLUSH ; Start 12/16/16 at 21:00; Stop at 21:00; Status DC Ondansetron HCl (Zofran Inj) 4 mg Q6H PRN IVP NAUSEA OR VOMITING; Start at 18:00 Prochlorperazine (Compazine Supp) 25 mg Q12H PRN RECTAL NAUSEA OR VOMITING; Start 12/16/16 at 18:00; Stop 12/16/16 at 20:45; Status DC Zolpidem Tartrate (Ambien) 5 mg HS PRN PO INSOMNIA Last administered on 00:15; Start 12/16/16 at 18:00 Acetaminophen (Tylenol) 650 mg Q6H PRN PO PAIN SCALE 1 TO 2; Start 12/16/16 at 18:00 Oxycodone/ Acetaminophen (Percocet 5-325 Mg) 1 tab Q6H PRN PO PAIN SCALE 3 TO 5; Start 12/16/16 at 18:00 Oxycodone/ Acetaminophen (Percocet 10-325 Mg) 1 tab Q6H PRN PO PAIN SCALE 6 TO 10; Start 12/16/16 at 18:00 Morphine Sulfate (Morphine Inj) 2 mg Q3H PRN IV Pain 3-5; if unable to take PO ; Start 12/16/16 at 18:00 Morphine Sulfate (Morphine Inj) 4 mg Q3H PRN IV Pain 6-10;if unable to take PO ; Start 12/16/16 at 18:00 Morphine Sulfate (Morphine Inj) 4 mg Q3H PRN IV BREAKTHROUGH PAIN; Start at 18:00 Naloxone HCl (Narcan Inj) 0.4 mg UNSCH PRN IV SEE LABEL COMMENTS; Start at 18:00 Senna/Docusate Sodium (Kim-Colace) 1 tab BID PO ; Start 12/16/16 at 21:00; Stop 12/16/16 at 21:00; Status DC Magnesium Hydroxide (Milk Of Magnesia Liq) 30 ml Q12H PRN PO MILD - MODERATE CONSTIPATION; Start 12/16/16 at 18:00 Sennosides (Senokot) 17.2 mg Q12H PRN PO MODERATE - SEVERE CONSTIPATION; Start 12/16/16 at 18:00 Bisacodyl (Dulcolax Supp) 10 mg DAILY PRN RECTAL SEVERE CONSITIPATION; Start at 18:00 Lactulose (Lactulose Liq) 30 ml DAILY PRN PO SEVERE CONSITIPATION; Start at 18:00 Hydromorphone HCl (Dilaudid) 4 mg Q4H PRN PO BREAKTHROUG PAIN 6-10; Start 12/16 at 18:15; Stop 12/17/16 at 05:33; Status DC Lactulose (Lactulose Liq) 30 ml BID PO ; Start 12/16/16 at 21:00 Ondansetron HCl (Zofran Odt) 4 mg QID PRN SL NAUSEA OR VOMITING; Start at 18:15 Non-Formulary Medication 10 mg DAILY .ROUTE ; Start 12/17/16 at 09:00; Status UNV Non-Formulary Medication 200 mg DAILY PO ; Start 12/17/16 at 09:00; Status UNV Nicotine (Habitrol 14 Mg Patch.24 Hr) 1 patch ONCE ONCE T-DERMAL Last administered on 12/16/16t 20:52; Start 12/16/16 at 20:00; Stop 12/16/16 at 20:01 ; Status DC Nicotine (Habitrol 14 Mg Patch.24 Hr) 1 patch DAILY T-DERMAL ; Start 12/17/16 at 09:00 Miscellaneous Information 1 DAILY T-DERMAL ; Start 12/17/16 at 09:00 Albuterol/ Ipratropium (Duoneb Neb) 1 ampule Q4HR NEB PRN NEB SOB/COUGH; Start 12/16/16 at 18:30 Guaifenesin (Mucinex Er) 600 mg BID PO ; Start 8/28/17 at 21:00 Patient Own Medication PT OWN MED: NEXA... DAILY PO ; Start 12/17/16 at 09:00; Status Future Hold Hydromorphone HCl (Dilaudid) 4 mg Q4H PRN PO BREAKTHROUGH PAIN 6-10 Last administered on 12/17/16t 05:42; Start 12/17/16 at 05:45 Urinary Catheter: No Vascular Central Line Catheter: No A/P Problem List: (1) Hypertension ICD Code: I10 - Essential (primary) hypertension (2) Anxiety ICD Code: F41.9 - Anxiety disorder, unspecified (3) Depression ICD Code: F32.9 - Major depressive disorder, single episode, unspecified (4) Tobacco abuse ICD Code: Z72.0 - Tobacco use (5) Hepatitis C ICD Code: B19.20 - Unspecified viral hepatitis C without hepatic coma (6) Liver cancer ICD Code: C22.9 - Malignant neoplasm of liver, not specified as primary or secondary (7) Skin lesion ICD Code: L98.9 - Skin lesion Status: Acute (8) Non-ST elevation GA (NSTEMI) ICD Code: I21.4 - Non-ST elevation (NSTEMI) myocardial infarction Status: Acute (9) Leukocytosis ICD Code: D72.829 - Elevated white blood cell count, unspecified Status: Acute Assessment and Plan Non-ST elevation GA we'll trend troponins consult cardiology continue on heparin drip continue on aspirin and Nitropaste We'll get an echocardiogram Pain control VERY POSITIVE TROPONINS FOR CARDIAC CATH TODAY Hepatocellular carcinoma and history of hepatitis C still undergoing treatment with oral chemotherapy Leukocytosis a.m. labs and trend Hypertension home meds Hyperlipidemia home meds Tobacco abuse smoking cessation recommended Anxiety and anti-anxiety medications HYPOKALEMIA- REPLACE Jabier Conti DO Dec 17, 2016 08:21
[2016-12-17] MEDS ORDERED: POTASSIUM CHLORIDE 20 MEQ CONTROLLED RELEASE TAB PO ONE (08:30)
[2016-12-17] MEDS ORDERED: RAMIPRIL 2.5 MG CAP PO SCH (09:00)
[2016-12-17] MEDS ORDERED: ASPIRIN EC 325 MG TABEC PO SCH (09:00)
[2016-12-17] MEDS ORDERED: SORAFENIB PO SCH (09:00)
[2016-12-17] MEDS ORDERED: SORAFENIB TOSYLATE 200 MG PO SCH (09:00)
[2016-12-17] MEDS: LACTULOSE SYRUP 20 GM/30 ML CUP PO SCH ×2 (09:00→19:55)
[2016-12-17] MEDS ORDERED: METHYL SCH (09:00)
[2016-12-17] MEDS ORDERED: [UNRECOGNIZED DRUG - OTHER] SCH (09:00)
[2016-12-17] MEDS: REMOVE OLD PATCH T-DERMAL SCH (09:00)
[2016-12-17] MEDS: guaiFENesin E.R. 600 MG TAB PO SCH ×2 (09:53→19:53)
[2016-12-17] MEDS: POTASSIUM CHLORIDE 20 MEQ CONTROLLED RELEASE TAB PO SCH (09:54)
[2016-12-17] MEDS: CARVEDILOL 3.125 MG TAB PO SCH ×2 (09:54→19:52)
[2016-12-17] MEDS: SODIUM CHLORIDE 0.9% FLUSH 10 ML FLUSH IV FLUSH SCH ×2 (09:56→21:00)
[2016-12-17] MEDS: NICOTINE 14 MG/24 HR PATCH T-DERMAL SCH (10:30)
[2016-12-17 11:24] LABS: APTT (PATIENT) 34.7 SEC (24.3-30.1)
[2016-12-17 12:38] LABS: HEMOGLOBIN A1a 1.1 %; HEMOGLOBIN A1b 1.9 %; HEMOGLOBIN Ao 84.3 %; HEMOGLOBIN LA1C 2.5 %
[2016-12-17] MEDS ORDERED: MIDAZOLAM HCL 5 MG/5 ML VIAL ONE (13:48)
[2016-12-17] MEDS ORDERED: HEPARIN-NS/PF INJ 1,000 ML ONE (13:48)
[2016-12-17] MEDS ORDERED: IOHEXOL 350 MG/ML 50 ML BTL (for Cath Lab) OTHER ONE (13:49)
[2016-12-17] MEDS ORDERED: IOHEXOL 350 MG/ML 100 ML BTL (for Cath Lab) OTHER ONE (13:49)
[2016-12-17] MEDS ORDERED: MIDAZOLAM HCL 2 MG/2 ML VIAL ONE (14:40)
[2016-12-17] MEDS ORDERED: HEPARIN SODIUM - IV 10,000 UNITS/10 ML VIAL ONE (14:41)
--- NOTE | 2016-12-17 15:00 | ECHRPT ---
Indication: CHEST PAIN CONCLUSIONS The left ventricular systolic function is low normal with an estimated ejection fraction in the rang e of 50- 55%. Normal left ventricular size. Wall thickness is normal. No regional wall motion abnormalities are present. Trace mitral valve regurgitation. Slight aortic valve sclerosis is present. There is mild tricuspid valve regurgitation. The estimated pulmonary arterial pressure is 39 mmHg. BP: 158 / 98 HR: 118 Rhythm: Sinus MEASUREMENTS (Male / Female) Normal Values Technical Quality:Fair 2D ECHO LV Diastolic Diameter PLAX 4.1 cm 4.2 - 5.9 / 3.9 - 5.3 cm LV Systolic Diameter PLAX 3.0 cm IVS Diastolic Thickness 1.2 cm 0.6 - 1.0 / 0.6 - 0.9 cm LVPW Diastolic Thickness 1.2 cm 0.6 - 1.0 / 0.6 - 0.9 cm LV Relative Wall Thickness 0.6 RV Internal Dim ED PLAX 2.1 cm LA Systolic Diameter LX 2.9 cm 3.0 - 4.0 / 2.7 - 3.8 cm LV Ejection Fraction MOD 4C 55.0 % LV Cardiac Index MOD 4C 4398.8 cm/minm LV Ejection Fraction 4C AL 58.0 % LV Cardiac Index 4C AL 4849.1 cm/minm M-MODE Aortic Root Diameter MM 3.1 cm AV Cusp Separation MM 2.0 cm DOPPLER AV Peak Velocity 139.5 cm/s AV Peak Gradient 7.8 mmHg LVOT Peak Velocity 91.3 cm/s LVOT Peak Gradient 3.3 mmHg MV Area PHT 4.3 cm Mitral E Point Velocity 80.9 cm/s Mitral A Point Velocity 75.0 cm/s Mitral E to A Ratio 1.1 LV E' Lateral Velocity 10.2 cm/s Mitral E to LV E' Lateral Ratio 7.9 LV E' Septal Velocity 8.8 cm/s Mitral E to LV E' Septal Ratio 9.2 TR Peak Velocity 267.0 cm/s TR Peak Gradient 28.5 mmHg PV Peak Velocity 102.0 cm/s PV Peak Gradient 4.2 mmHg FINDINGS LEFT VENTRICLE The left ventricular systolic function is low normal with an estimated ejection fraction in the rang e of 50- 55%. Normal left ventricular size. Wall thickness is normal. No regional wall motion abnormalities are present. RIGHT VENTRICLE Normal right ventricular size and systolic function. LEFT ATRIUM The left atrial size is normal. RIGHT ATRIUM The right atrial size is normal. ATRIAL SEPTUM Normal atrial septal thickness without atrial level shunting by limited color doppler interrogation. AORTA The aortic root and proximal ascending aorta are normal in size on limited imaging. MITRAL VALVE Trace mitral valve regurgitation. AORTIC VALVE Possible slight aortic valve sclerosis is present. TRICUSPID VALVE There is mild tricuspid valve regurgitation. The estimated pulmonary arterial pressure is 39 mmHg. PULMONARY VALVE The pulmonary valve is not well visualized. VESSELS The inferior vena cava is normal in size. PERICARDIUM No pericardial effusion. James Lima MD (Electronically Signed) Final Date:17 December 2016 14:59
[2016-12-17] MEDS ORDERED: TICAGRELOR 90 MG TAB PO ONE (15:10)
--- NOTE | 2016-12-17 15:35 | EKG ---
Date Performed: 12/16/2016 Time Performed: 15:42:03 PTAGE: 61 years EKG: Sinus rhythm VOLTAGE CRITERIA FOR LVH Precordial U-wave Nonspecific ST segment changes ABNORMAL ECG PREVIOUS TRACING 07/27/13 Since the prior tracing, there has been an increase in ventricular vol tage and the ST segment depression inferiorly is increased. There is no lateral ST elevation in V6, w here previously there was minimal ST depression. The serial changes are nonspecific, but clinical cor relation to assess the etiology would be appropriate. DOCTOR: Cierra Long Interpretating Date/Time 12/17/2016 15:34:38
[2016-12-17] MEDS: ALPRAZolam 0.25 MG TAB PO PRN (15:44)
--- NOTE | 2016-12-17 15:46 | EKG ---
Date Performed: 12/17/2016 Time Performed: 00:04:56 PTAGE: 61 years EKG: Sinus rhythm ST junctional depression is nonspecific Borderline ECG PREVIOUS TRACING : 12/16/2016 15.42 Since the prior tracing, there has been a significant reduc tion in ventricular voltage. The precordial U-wave is no longer evident. This is consistent with atilio ection of the metabolic disturbance or myocardial disease. Tracing is otherwise without change from t he most recent tracing. DOCTOR: Cierra Long Interpretating Date/Time 12/17/2016 15:46:03
--- NOTE | 2016-12-17 15:49 | EKG ---
Date Performed: 12/17/2016 Time Performed: 05:34:28 PTAGE: 61 years EKG: Sinus rhythm Minimal junctional ST depression Abnormal ECG PREVIOUS TRACING : 12/17/2016 00.04 No serial change from the most recent tracing. DOCTOR: Cierra Long Interpretating Date/Time 12/17/2016 15:46:49
--- NOTE | 2016-12-17 15:51 | CATHPROC ---
[facility] HIS Report Study Information Study Number Admission Scheduled Start Study Start [id number] Dec 16 2016 5:18PM 12/17/2016 Dec 17 2016 1:02PM [facility] Cardiac Catheterization Admit Source Facility Department Other [facility] - Optical Dispenser Physician and Clinical Staff Initial Eric He Flatwork Assembler Fabio RN, Raul Recorder Charisse Caraballo,RUBBER AND PLASTICS WORKER TECH2 Scrub Duran Grant,ANALY(BS) X-Ray cathlab, cathlab Procedures Performed Procedure Location (Site) Vessel Name Angiogram LV LV Ventricle Coronary Angiograms LCA Left Coronary Coronary Angiograms RCA Right Coronary L Heart Cath PTCA LAD Mid Left Coronary Stent LAD Mid Left Coronary Wire insertion Fem Art (right) Femoral Art Equipment Time Client Advocate Description Size Mfg Part Number Used/Scraped TRANSDUCER, SIMONE [id number] 14:36 COTTER WELSH * Used W/STOCKCOCK *[id number] BALLOON, 2.25 12MM EMERGE 15:00 BOSTON SCIENTIFIC 2.25 12MM [id number] Used MR BALLOON, 3.0 8MM NC QUANTUM [id number] 15:15 BOSTON SCIENTIFIC 3.0 8MM Used APEX MR *[id number] 534-548T *[id number] 534-520T *[id number] 534-552S *[id number] *[id number] [id number] *[id number] 15:23 DAIG/ST. LONG MEDICAL ANGIOSEAL, FR6 VIP FR 6 Used *[id number] 14:36 MEDLINE INDUSTRIES PACK, CCL CUSTOM * Used *[id number] 14:36 PlaceBlogger PACER PEN, SKIN DUAL W/ RULER * Used *[id number] BALLOON, 2.75 X 8MM NC [id number] 15:07 MEDTRONIC 8MM Used EUPHORA *[id number] [id number] 15:03 MEDTRONIC STENT, 2.75 14 INTEGRITY 2.75 14 Used *5567587 [id number] 14:59 Zenph 30 LUPE INDEFLATOR Used *0454115 [id number] 14:48 Broadersheet MEDICAL SHEATH, FR6.5 PRELUDE 11CM FR 6.5 038ACT Used *3402331 [id number] 14:36 Zenph WIRE, 3MMJ .035 180CM 180CM Used *[id number] PROBE COVER, STERILE [id number] 14:36 MICROTEK MEDICAL * Used ULTRASOUND W/ GEL *[id number] 14:36 NAMIC MANIFOLD, 4 PORT * Used *[id number] 14:36 NAMIC TUBING, HIGH PRESSURE 48" 48" Used *[id number] 14:36 NYCOMED OMNIPAQUE, 350 MG, 150ML 150ML [id number] Used 14:38 NYCOMED OMNIPAQUE, 350 MG, 50ML 50ML [id number] Used [id number] 14:36 KARIMI MEDICAL BLANKET,WARM AIR CCL * Used *[id number] 14:36 TERUMO MEDICAL SHEATH, FR5 TERUMO (10CM) FR 5 Used *[id number] Equipment Model, Serial, Lot Number and Expiration Data Description Model Number Serial Number Lot Number Expiration Date STENT, 2.75 14 INTEGRITY [id number] 05-17-2018 History: Allergies Allergy Reaction *MDRO Multi-Drug Resistant Organism History: Risk Factors Family History of Hypertension Dyslipidemia Previous UT Previous Heart Failure Premature CAD Yes Yes No No No Prior Valve Prior PCI Prior CABG Surgery No No No Cerebrovascular Peripheral Artery Chronic Lung On Dialysis Diabetes Disease Disease Disease No No No No No History: Other Disease Selection Items Cancer Depression Hepatitis HTN Labs Hgb (g/dl) Hct (%) RBC (MIL/MM3) WBC (l/cumm) Platelets (thousands) 11.60-17.00 35.00-51.00 4.00-5.90 4.00-11.00 150.00-450.00 14.0 42.2 5.1 17.5 189 Glucose (mg/dl) BUN (mg/dl) Creatinine (mg/dl) BUN:Creatinine (1:x) 74.00-106.00 7.00-18.00 0.50-1.30 10.00-20.00 116 12 0.6 20 Na (meq/l) K (meq/l) Cl (meq/l) CO2 (mmol/L) Ca (mg/dl) 136.00-145.00 3.50-5.10 98.00-107.00 21.00-32.00 8.50-10.10 138 2.8 102 24.3 8.4 Medication Medication Total Dose (Bolus/Oral) Medication Total Dosage/Unit 1% XYLOCAINE 20 mL BRILINTA 180 mg FENTANYL 125 mcg HEPARIN 6500 units NTG (IC) 200 mcg OXYGEN 2 l/min VERSED 8 mg Medications (Bolus/Oral) Medication Time Given Dosage/Unit Administered By Reason FENTANYL 12/17/2016 2:28:42 PM 50 mcg Fabio RN, Raul 50 mcg FENTANYL given in lab by Fabio ROLLINS, Raul in Left Hand via Peripheral IV. Ordered by Mirella Inman. VERSED 12/17/2016 2:29:15 PM 2 mg Fabio RN, Raul 2 mg VERSED given in lab by Fabio ROLLINS, Raul in Left Hand via Peripheral IV. Ordered by Duke Inman FENTANYL 12/17/2016 2:32:56 PM 50 mcg Fabio RN, Raul 50 mcg FENTANYL given in lab by Fabio ROLLINS, Raul in Left Hand via Peripheral IV. Ordered by Mirella Inman. VERSED 12/17/2016 2:33:04 PM 2 mg Fabio RN, Raul 2 mg VERSED given in lab by Fabio ROLLINS, Raul in Left Hand via Peripheral IV. Ordered by Duke Inman FENTANYL 12/17/2016 2:34:25 PM 25 mcg Fabio RN, Raul 25 mcg FENTANYL given in lab by Fabio ROLLINS, Raul in Left Hand via Peripheral IV. Ordered by Mirella Inman. 1% XYLOCAINE 12/17/2016 2:34:26 PM 20 mL Eric Inman 20 mL 1% XYLOCAINE given in lab by Eric Inman in Right Groin via Subcutaneous. Ordered by Eric Bradley. VERSED 12/17/2016 2:35:26 PM 1 mg Fabio ROLLINS, Raul 1 mg VERSED given in lab by Fabio ROLLINS, Raul in Left Hand via Peripheral IV. Ordered by Duke Inman VERSED 12/17/2016 2:36:27 PM 1 mg Fabio ROLLINS, Raul 1 mg VERSED given in lab by Fabio ROLLINS, Raul in Left Hand via Peripheral IV. Ordered by Duke Inman VERSED 12/17/2016 2:42:43 PM 1 mg Fabio ROLLINS, Raul 1 mg VERSED given in lab by Fabio ROLLINS, Raul in Left Hand via Peripheral IV. Ordered by Duke Inman HEPARIN 12/17/2016 2:48:20 PM 4500 units Fabio RN, Raul 4500 units HEPARIN given in lab by Fabio ROLLINS, Raul in Left Hand via Peripheral IV. Ordered by Eric Inman. NTG (IC) 12/17/2016 2:55:00 PM 100 mcg Duran Grant 100 mcg NTG (IC) given in lab by Duran Grant RCIS(BS) in Right Groin via Intra-coronary. Ordered by Eric Inman. OXYGEN 12/17/2016 3:00:10 PM 2 l/min Raul Mccarthy RN 2 l/min OXYGEN given in lab by Raul Mccarthy RN via Nasal. Ordered by Eric Inman. NTG (IC) 12/17/2016 3:00:16 PM 100 mcg Duran Grant 100 mcg NTG (IC) given in lab by Duran Grant RCIS(BS) in Right Groin via Intra-coronary. Ordered by Eric Inman. HEPARIN 12/17/2016 3:04:16 PM 2000 units Raul Mccarthy RN 2000 units HEPARIN given in lab by Raul Mccarthy RN in Left Hand via Peripheral IV. Ordered by Eric Inman. VERSED 12/17/2016 3:14:39 PM 1 mg Raul Mccarthy RN 1 mg VERSED given in lab by Raul Mccarthy RN in Left Hand via Peripheral IV. Ordered by Duke Inman r. BRILINTA 12/17/2016 3:24:27 PM 180 mg Raul Mccarthy RN 180 mg BRILINTA given in lab by Raul Mccarthy RN via Oral. Ordered by Eric Inman. Medication (Drip) Medication Time Given Dosage/Unit Concentration/Unit Diluent (ml) Solution IV Solutions 12/17/2016 1:49:39 PM 0 mL (IV) 500 NaCl .9 Patient arrived on IV Solutions given by jessenia ruelas in Left Hand via Peripheral IV. Pump/Drip F low = 20 ml/hr using NaCl .9. Ordered by Eric Inman. Initial Case Assessment Cardiovascular HR NIBP 75 153/105 Edema Present Skin color Skin None Normal Warm Dry Circulatory - Right Pulses Dorsalis Pedis Femoral 3 3 Scale (0,1,2,3,4,d) Circulatory - Left Pulses Dorsalis Pedis Femoral 3 3 Scale (0,1,2,3,4,d) Neurological State Oriented to time-place- Alert person Respiration - General Respiration Rate SpO2 (%) (B/min) 15 99 Final Case Assessment Cardiovascular HR NIBP 94 175/114 Edema Present Skin color Skin None Normal Warm Dry Circulatory - Right Pulses Dorsalis Pedis Femoral 3 3 Scale (0,1,2,3,4,d) Circulatory - Left Pulses Dorsalis Pedis Femoral 3 3 Scale (0,1,2,3,4,d) Neurological State Oriented to time-place- Alert person Respiration - General Respiration Rate SpO2 (%) (B/min) 15 99 Chronological Log Time Study Chronological Log 13:49:24 Patient arrived via Bed. 13:49:25 Patient Name, D.O.B, / Armband Verified By R.N. Vitals capture started with the following parameters, Patient=Adult, Interval=5 min, Initial Pr bwxlbd=710 mmHg, 13:49:26 Deflation Rate=5 mmHg, Cuff placed on Right Arm 13:49:27 Consent signed by the physician and the patient and verified by the Optical Dispenser staff. 13:49:28 Pre-op and post- op instructions given; patient acknowledges understanding of instructions. 13:49:31 Patient has been NPO for More than 6Hrs. 13:49:32 Skin Breakdown-multiple sores on entire body 13:49:33 Patient Warmer Placed on the Table. 13:49:34 Ronaldo Prominences Protected 13:49:37 A # 18 IV was noted in the Hand (right). Grade = 0 13:49:38 A # 20 IV was noted in the Hand (left). Grade = 0 Patient arrived on IV Solutions given by cathjessenia lagunas in Left Hand via Peripheral IV. Pump/ Drip Flow = 20 ml/hr 13:49:39 using NaCl .9. Ordered by Eric Inman. 13:49:40 History and physical on the chart or being dictated. 13:50:03 HR=75 bpm, YCUS=518/105 mmhg, SpO2=99.0 %, Resp=15 B/min, Pain=0, Sonia=10, Newman=2 Assessment: Initial Case, HR=75 BPM, SZPF=127/105 mmhg, Edema=None, Color=Normal, Skin = Warm, Dry Right Pulses: Rei Ped=3, Femoral=3 13:50:05 Left Pulses: Rei Ped=3, Femoral=3 Neurological: State=Alert, Ox3 Respiration: Resp=15 B/min, SpO2=99 % 13:55:00 HR=80 bpm, VPEU=140/98 mmhg, SpO2=98.0 %, Resp=14 B/min, Pain=0, Sonia=10, Newman=2 14:00:27 HR=80 bpm, HQKT=120/100 mmhg, SpO2=99.0 %, Resp=15 B/min, Pain=0, Sonia=10, Newman=2 14:05:00 LM=367 bpm, JICG=120/103 mmhg, CaY5=392.0 %, Resp=15 B/min, Pain=0, Sonia=10, Newman=2 14:05:35 Pressure channel 1 zeroed. 14:05:44 Pressure channel 1 zeroed. 14:10:03 HR=75 bpm, JXXS=859/96 mmhg, SpO2=99.0 %, Resp=14 B/min, Pain=0, Sonia=10, Newman=2 14:10:54 Reference ECG taken 14:12:12 Bilateral groins prepped with 2% chlorhexidine, and with a 3 min. waiting time. 14:15:02 HR=75 bpm, NNVE=269/98 mmhg, SpO2=99.0 %, Resp=20 B/min, Pain=0, Sonia=10, Newman=2 14:20:03 HR=77 bpm, IIOQ=021/109 mmhg, SpO2=99.0 %, Resp=15 B/min, Pain=0, Sonia=10, Newman=2 14:25:02 HR=81 bpm, PAHU=130/101 mmhg, SpO2=99.0 %, Resp=15 B/min, Pain=0, Sonia=10, Newman=2 14:28:42 50 mcg FENTANYL given in lab by Raul Mccarthy RN in Left Hand via Peripheral IV. Ordered by Eric Inman. 14:29:15 2 mg VERSED given in lab by Raul Mccarthy RN in Left Hand via Peripheral IV. Ordered by Eric Wheeler. 14:30:07 HR=88 bpm, SKPZ=047/114 mmhg, SpO2=99.0 %, Resp=17 B/min, Pain=0, Sonia=10, Newman=2 Time Out. Correct patient, correct procedure,correct physician,,power injector loaded with cont rast with surgical team 14:32:51 present. Time Out Concurred by , individual staff in procedure 14:32:56 50 mcg FENTANYL given in lab by Raul Mccarthy RN in Left Hand via Peripheral IV. Ordered by Eric Inman. 14:33:04 2 mg VERSED given in lab by Raul Mccarthy RN in Left Hand via Peripheral IV. Ordered by Eric Wheeler. 14:33:15 Case Start 14:34:25 25 mcg FENTANYL given in lab by Raul Mccarthy RN in Left Hand via Peripheral IV. Ordered by Eric Inman. 14:34:26 20 mL 1% XYLOCAINE given in lab by Eric Inman in Right Groin via Subcutaneous. Ordered by Eric Inman. 14:35:08 HR=96 bpm, AFJL=181/115 mmhg, SpO2=99.0 %, Resp=19 B/min, Pain=0, Sonia=10, Newman=2 14:35:26 1 mg VERSED given in lab by Raul Mccarthy RN in Left Hand via Peripheral IV. Ordered by Eric Wheeler. 14:35:27 Access site was Right Femoral Artery. 14:35:36 A SHEATH, FR5 TERUMO (10CM) FR 5 was advanced into the Fem Art (right) using the Modified S eldinger technique. A PIGTAIL ANG. INFINITI CATHETER FR 5 was advanced over a wire. OMNIPAQUE, 350 MG, 150ML 150ML was used 14:36:21 for injections. 14:36:27 1 mg VERSED given in lab by Raul Mccarthy RN in Left Hand via Peripheral IV. Ordered by Eric Wheeler. 14:37:23 Pressure channel 1 zeroed. Recorded Pressure: LV, HR=93, Condition=Condition 1 14:37:43 (Left Ventricle) LV 164/3/13 14:38:37 The LV was injected at 12 cc/sec for a total of 30. OMNIPAQUE, 350 MG, 50ML 50ML used. Recorded Pressure: LV, Ao, HR=97, Condition=Condition 1 14:39:08 (Left Ventricle) LV 160/6/10, (Aorta) Ao 160/96/127 14:39:33 Catheter was removed A JL 4.0 INFINITI CATHETER FR 5 was advanced over a wire. OMNIPAQUE, 350 MG, 150ML 150ML was us ed for 14:39:34 injections. Recorded Pressure: Ao, DY=483, Condition=Condition 1 14:40:33 (Aorta) Ao 150/97/122 14:40:44 HR=91 bpm, UMNK=044/103 mmhg, SpO2=99.0 %, Resp=16 B/min 14:40:45 The LCA was injected and visualized at various angles. OMNIPAQUE, 350 MG, 150ML 150ML used . 14:42:15 Catheter was removed A AR MOD INFINITI CATHETER FR 5 was advanced over a wire. OMNIPAQUE, 350 MG, 150ML 150ML was us ed for 14:42:33 injections. 14:42:43 1 mg VERSED given in lab by Raul Mccarthy RN in Left Hand via Peripheral IV. Ordered by Eric Wheeler. 14:43:31 The RCA was injected and visualized at various angles. OMNIPAQUE, 350 MG, 150ML 150ML used . 14:45:04 HR=95 bpm, LPXT=844/99 mmhg, SyD4=396.0 %, Resp=17 B/min, Pain=0, Sonia=10, Newman=2 14:45:08 Catheter was removed 14:45:52 ACT (Normal Range 90-180) = 56 A SHEATH, FR6.5 PRELUDE 11CM FR 6.5 was exchanged in the Fem Art (right). This was necessary in order for 14:47:55 catheter support. 14:48:20 4500 units HEPARIN given in lab by Raul Mccarthy RN in Left Hand via Peripheral IV. Ordered by Eric Inman. A XBLAD 3.5 GUIDE CATHETER FR 6 was advanced over a wire. OMNIPAQUE, 350 MG, 150ML 150ML was us ed for 14:49:29 injections. 14:50:05 HR=96 bpm, WYZU=528/101 mmhg, PlI5=720.0 %, Resp=19 B/min, Pain=0, Sonia=10, Newman=2 14:51:55 A WIRE, ATW MARKER 195CM 195CM was inserted via Fem Art (right). 100 mcg NTG (IC) given in lab by Duran Grant RCIS(BS) in Right Groin via Intra-coronary. O rdered by Storm, 14:55:00 Eric. 14:55:04 HR=97 bpm, NPBV=799/101 mmhg, PyC1=045.0 %, Resp=18 B/min, Pain=0, Sonia=10, Newman=2 14:56:15 A balloons was inserted over WIRE, ATW MARKER 195CM 195CM via the LAD Mid. 14:57:17 Activated Clotting Time Drawn A BALLOON, 2.25 12MM EMERGE MR 2.25 12MM over a WIRE, ATW MARKER 195CM 195CM in the LAD Mid was inflated 14:59:02 using a 30 LUPE INDEFLATOR at 14 lupe for 25 sec. 15:00:05 JN=278 bpm, IFPZ=456/91 mmhg, SpO2=98.0 %, Resp=16 B/min, Pain=0, Sonia=10, Newman=2 15:00:10 2 l/min OXYGEN given in lab by Raul Mccarthy RN via Nasal. Ordered by Eric Inman. 100 mcg NTG (IC) given in lab by Duran Grant RCIS(BS) in Right Groin via Intra-coronary. O rdered by Storm 15:00:16 Eric. 15:01:49 Balloon Removed. 15:02:46 ACT (Normal Range 90-180) = 232 15:04:16 2000 units HEPARIN given in lab by Raul Mccarthy RN in Left Hand via Peripheral IV. Ordered by Eric Inman. An STENT, 2.75 14 INTEGRITY 2.75 14 Bare Metal Stent was inserted through a XBLAD 3.5 GUIDE CAT HETER FR 6 15:04:43 over a WIRE, ATW MARKER 195CM 195CM. A STENT, 2.75 14 INTEGRITY 2.75 14 was deployed using a 30 LUPE INDEFLATOR at 9 atmospheres for 45 seconds in 15:04:59 the LAD Mid. 15:05:41 HR=94 bpm, UHXR=625/105 mmhg, Resp=18 B/min, Pain=0, Sonia=10, Newman=2 15:05:56 Re-inflated the stent balloon in the LAD Mid to 16 LUPE for 15 seconds. 15:06:48 Delivery device removed 15:07:45 A BALLOON, 2.75 X 8MM NC EUPHORA 8MM was inserted over WIRE, ATW MARKER 195CM 195CM via the LAD Mid. A BALLOON, 2.75 X 8MM NC EUPHORA 8MM over a WIRE, ATW MARKER 195CM 195CM in the LAD Mid was inf lated 15:08:44 using a 30 LUPE INDEFLATOR at 25 lupe for 40 sec. 15:10:10 SE=887 bpm, QLNB=800/124 mmhg, UoD9=250.0 %, Resp=18 B/min, Pain=0, Sonia=10, Newman=2 A BALLOON, 2.75 X 8MM NC EUPHORA 8MM over a WIRE, ATW MARKER 195CM 195CM in the LAD Mid was inf lated 15:10:16 using a 30 LUPE INDEFLATOR at 25 lupe for 25 sec. A BALLOON, 2.75 X 8MM NC EUPHORA 8MM over a WIRE, ATW MARKER 195CM 195CM in the LAD Mid was inf lated 15:11:04 using a 30 LUPE INDEFLATOR at 25 lupe for 20 sec. 15:12:38 Balloon Removed. 15:12:45 Wire removed 15:14:39 1 mg VERSED given in lab by Raul Mccarthy RN in Left Hand via Peripheral IV. Ordered by Eric Wheeler. 15:14:48 A WIRE, ATW MARKER 195CM 195CM was inserted via Fem Art (right). 15:15:13 HR=97 bpm, JCUA=825/113 mmhg, PiP2=146.0 %, Resp=16 B/min, Pain=0, Sonia=10, Newman=2 A BALLOON, 3.0 8MM NC QUANTUM APEX MR 3.0 8MM was inserted over WIRE, ATW MARKER 195CM 195CM vi a the 15:16:51 LAD Mid. A BALLOON, 3.0 8MM NC QUANTUM APEX MR 3.0 8MM over a WIRE, ATW MARKER 195CM 195CM in the LAD Mi d was 15:17:48 inflated using a 30 LUPE INDEFLATOR at 20 lupe for 35 sec. A BALLOON, 3.0 8MM NC QUANTUM APEX MR 3.0 8MM over a WIRE, ATW MARKER 195CM 195CM in the LAD Mi d was 15:18:33 inflated using a 30 LUPE INDEFLATOR at 20 lupe for 15 sec. A BALLOON, 3.0 8MM NC QUANTUM APEX MR 3.0 8MM over a WIRE, ATW MARKER 195CM 195CM in the LAD Mi d was 15:19:26 inflated using a 30 LUPE INDEFLATOR at 20 lupe for 20 sec. 15:20:12 HR=94 bpm, ELZA=463/115 mmhg, JxR8=807.0 %, Resp=15 B/min, Pain=0, Sonia=10, Newman=2 15:21:18 Balloon Removed. 15:21:23 Wire removed 15:: Catheter was removed Recorded Pressure: FA, HR=94, Condition=Condition 1 15:22:26 (Femoral Artery) FA 192/102/139 15:22:40 An injection in the Fem Art (right) was made through the SHEATH, FR6.5 PRELUDE 11CM FR 6.5. 15:22:51 Catheter(s) removed without difficulty 15:23:09 ANGIOSEAL, FR6 VIP FR 6 placement in the Fem Art (right) 15:24:27 180 mg BRILINTA given in lab by Raul Mccarthy RN via Oral. Ordered by Eric Inman. 15:24:44 Case End 15:24:56 Sterile dressing applied to site 15:24:59 No case complications noted. 15:25:01 Cine recording checked. 15:25:04 Bedside Report will be given. 15:25:07 Contrast Scanned 15:25:10 Implantable Device card placed in patient's chart. 15:25:13 HR=90 bpm, GMOO=167/111 mmhg, LsS8=302.0 %, Resp=14 B/min, Pain=0, Sonia=10, Newman=2 15:25:13 A Left Heart Cath was performed. 15:30:14 HR=94 bpm, DWRO=494/114 mmhg, SpO2=99 %, Resp=15 B/min, Pain=0, Sonia=10, Newman=2 Assessment: Final Case, HR=94 BPM, VQRB=821/114 mmhg, Edema=None, Color=Normal, Skin = Warm, Dr y Right Pulses: Rei Ped=3, Femoral=3 15:34:15 Left Pulses: Rei Ped=3, Femoral=3 Neurological: State=Alert, Ox3 Respiration: Resp=15 B/min, SpO2=99 % 15:35:03 Vitals capture stopped. 15:35:09 Patient moved to [facility] PCI QA completed: Pre-Lino - 2, Post Lino - 3, Type - C, Length - 14 mm, Morphology - Concentri c, Indications - Lesion 15:41:46 > 50 non-stem, Pre-Stenosis - 90% and Post Stenosis - 0%. End Study - Contrast Media Used In Study Contrast Total Opened (mL) Total Used (mL) Total Wasted (mL) Omnipaque 150 150 0 End Study - Maximum Contrast Load Max Contrast Load (mL) 491.7 End Study - Radiation Exposure Fluoro Time (minutes) 10.5 End Study - Patient Disposition Complications Transferred To Telemetry Bed
[2016-12-17] MEDS ORDERED: SODIUM CHLOR 0.9% 1000 ML INJ 1,000 ML IV SCH (15:58)
[2016-12-17] MEDS ORDERED: MISC INFORMATION XX ONE (16:00)
[2016-12-17 18:29] LABS: APTT (PATIENT) 72.7 SEC (24.3-30.1)
[2016-12-17] MEDS ORDERED: hydrALAZINE HCL 20 MG/ML VIAL IV PUSH PRN (19:00)
[2016-12-17] MEDS ORDERED: cloNIDine HCL 0.1 MG TAB PO PRN (19:00)
[2016-12-17] MEDS: ATORVASTATIN 40 MG TAB PO SCH (19:52)
[2016-12-17] MEDS ORDERED: ATORVASTATIN 80 MG TAB PO SCH (21:00)
--- NOTE | 2016-12-17 23:42 | MR ---
cc: SASHA PENA DATE 12/17/16 INDICATIONS Bkr-PL-pehxglswd myocardial function. PROCEDURE PERFORMED 1. Retrograde left heart catheterization with left ventriculography and selective coronary angiography. 2. Angioplasty and stenting of the mid left anterior descending artery. 3. Moderate sedation. ACCESS SITE Right femoral artery. EQUIPMENT USED 5-Turkish pigtail catheter, JL4 and AR modified coronary artery catheters. XB LAD 3.5 guide, Marker wire, 2.25 balloon for predilatation, 2.75 x 14 mm Integrity stent at 16 atmospheres, postdilated with 3.0 x 8 mm noncompliant balloon. MEDICATIONS 1. Versed IV. 2. Fentanyl IV. 3. Heparin IV. 4. Nitroglycerin IC. 5. Brilinta 180 milligrams p.o. CONTRAST Omnipaque 150 cc. COMPLICATIONS None. BLOOD LOSS Less than 10 cc. METHOD OF HEMOSTASIS Angio-Seal closure. RESULTS HEMODYNAMICS Heart rate 70 beats per minute. Left ventricular end-diastolic pressure 6 mmHg. Left ventricle 155/66. Aorta 155/97/122. LEFT VENTRICULOGRAPHY Left ventricular ejection fraction 40%. Wall motion: anterolateral and inferoapical hypokinesis. CORONARY ANGIOGRAPHY The left main coronary artery is patent. Left anterior descending coronary artery has 40% stenosis in the proximal portion, 40% stenosis in the midportion distally to the first diagonal branch and sequential 90% stenosis in the midportion. First diagonal artery has 60% ostial stenosis. Left circumflex artery patent. OM1 is totally occluded at its ostium. OM2 is patent. Right coronary is a large dominant vessel with mild irregularities, PDA patent, PLV patent. Stenosis in the left anterior descending artery was 11 mm long, pre ISIAH flow III, post ISIAH flow III. Post stenosis 0. Post intervention angiography revealed excellent patency of the stented segment and no evidence of dissection, thrombosis or distal embolization. DIAGNOSIS 1. Severe multivessel coronary artery disease. 2. Moderate left ventricular dysfunction consistent with ischemic cardiomyopathy. 3. Successful angioplasty and stenting of the mid left anterior descending artery. DISPOSITION Mr. Olivera will be monitored on telemetry after his procedure. We will continue therapy with Brilinta, baby aspirin, beta isabel and TERRI inhibitor. We will initiate aggressive modification of his cardiac risk factors. His overall prognosis is uncertain at this time due to his comorbidities. MD SAMINA Stout /3:48 PM /11:07 PM SHANTELLE
[2016-12-18] VITALS (28 sets, daily range): BP systolic 100–162; BP diastolic 65–103; PULSE 67–108; RESP 18–20; TEMP 98.4–100; O2SAT 97–98
[2016-12-18] MEDS: NITROGLYCERIN 2% OINT 1 GM PACKET TOP SCH ×5 (00:02→23:33)
[2016-12-18] MEDS: HYDROmorphone HCL 2 MG TAB PO PRN ×6 (00:02→23:34)
[2016-12-18] MEDS: ALPRAZolam 0.25 MG TAB PO PRN (00:02)
[2016-12-18] MEDS: SODIUM CHLOR 0.9% 1000 ML INJ 1,000 ML IV SCH ×4 (02:11→23:33)
[2016-12-18 07:08] LABS: AUTOMATED NEUTROPHIL # 16.1 TH/MM3 (1.8-7.7); BASOPHIL % 0.1 % (0.0-2.0); HEMATOCRIT 42.5 % (39.0-51.0); HEMO FLAGS DIFF FINAL; LYMPH % 6.9 % (9.0-44.0); LYMPHOCYTE # 1.3 TH/MM3 (1.0-4.8); MEAN CELL VOLUME 82.5 FL (80.0-100.0); MEAN CORPUSCULAR HEMOGLOBIN 27.3 PG (27.0-34.0); MONO % 7.7 % (0.0-8.0); NEUT % 85.3 % (16.0-70.0); PLATELET COUNT 214 TH/MM3 (150-450); RED BLOOD COUNT 5.15 MIL/MM3 (4.50-5.90); WHITE BLOOD COUNT 18.8 TH/MM3 (4.0-11.0)
[2016-12-18 07:45] LABS: ALKALINE PHOSPHATASE 78 U/L (45-117); ALT (GPT) 89 U/L (12-78); ANION GAP 10 MEQ/L (5-15); AST (GOT) 365 U/L (15-37); BICARBONATE 24.5 MEQ/L (21.0-32.0); BLOOD UREA NITROGEN 14 MG/DL (7-18); CHLORIDE 105 MEQ/L (98-107); CREATINE KINASE 940 U/L (39-308); GLOMERULAR FILTRATION RATE 141 ML/MIN (>89); HDL CHOLESTEROL 28.3 MG/DL (40.0-60.0); LDL CHOLESTEROL 91 MG/DL (0-99); MAGNESIUM 1.9 MG/DL (1.5-2.5); SODIUM (NA) 139 MEQ/L (136-145); TOTAL BILIRUBIN ADULT 0.7 MG/DL (0.2-1.0)
[2016-12-18 07:48] LABS: POTASSIUM 2.7 MEQ/L (3.5-5.1)
[2016-12-18 08:04] LABS: CKMB 83.3 NG/ML (0.5-3.6)
--- NOTE | 2016-12-18 08:36 | HHI.PR ---
Subjective Remarks This is a 61 year-old gentleman with a history of hepatocellular carcinoma, hepatitis C, presents today with complaint of left sided chest pain. Patient reports pleuritic pain. He reports pain with movement. He states pain is sharp and stabbing. He reports it's unrelenting. Patient denies any shortness of breath. He does report cough but is unsure whether there is color to his phlegm. The patient denies any abdominal pain. He does have an episode of vomiting bilious material. There are no other complaints time my examination. he was found to have a non-ST elevation MO with positive troponins. Will be admitted placed on heparin drip consult cardiology and trend troponins as well as get an echocardiogram 12-17 replace potassium POSITIVE TROPONINS NEEDS CARDIAC CATH PAIN IS 10/10 AM [facility] CARDIOLOGY HOPEFULLY FOR CARDIAC CATH TODAY DUE TO VERY POSITIVE TROPONINS 12-18 HAD CATH DONE YESTERDAY WITH STENT TO LAD 1. Severe multivessel coronary artery disease. 2. Moderate left ventricular dysfunction consistent with ischemic cardiomyopathy. 3. Successful angioplasty and stenting of the mid left anterior descending artery. DISPOSITION Mr. Olivera will be monitored on telemetry after his procedure. We will continue therapy with Brilinta, baby aspirin, beta isabel and TERRI inhibitor. We will initiate aggressive modification of his cardiac risk factors. His overall prognosis is uncertain at this time due to his comorbidities. CATH DONE 12-17 STILL FEELS VERY WEAK, POOR APPETITE DW RN AND PT Objective Vitals Vital Signs Date Time Temp Pulse Resp B/P (MAP) Pulse Ox O2 Delivery O2 Flow Rate FiO2 12/18/16 07:01 89 12/18/16 06:00 86 12/18/16 05:00 100 12/18/16 04:30 100.0 107 20 162/103 (122) 97 12/18/16 04:00 97 12/18/16 03:00 98 12/18/16 02:00 94 12/18/16 01:00 94 12/18/16 00:00 108 12/18/16 00:00 99.1 104 20 141/94 (110) 98 12/17/16 23:00 92 12/17/16 22:00 90 12/17/16 21:00 100 12/17/16 20:00 115 12/17/16 20:00 98.0 112 20 163/106 (125) 99 12/17/16 19:00 104 8/29/17 18:15 102 18 178/102 (127) 96 12/17/16 18:09 16 12/17/16 15:00 76 12/17/16 10:00 98.9 96 18 136/74 (94) I/O 12/17/16 12/17/16 12/17/16 12/18/16 12/18/16 12/18/16 06:59 14:59 22:59 06:59 14:59 22:59 Intake Total 1125 ml 350 ml 1484 ml Output Total 1100 ml Balance 1125 ml -750 ml 1484 ml Intake Oral 350 ml IV Total 1125 ml 1484 ml Output Urine Total 1100 ml # Voids 2 # Bowel Movements 0 Result Diagram: 12/18/16 0625 12/18/16 0556 Other Results Laboratory Tests Test 12/16/16 16:05 12/16/16 23:38 12/17/16 05:18 12/17/16 09:22 White Blood Count 19.6 TH/MM3 17.5 TH/MM3 Red Blood Count 5.50 MIL/MM3 5.12 MIL/MM3 Hemoglobin 15.2 GM/DL 14.0 GM/DL Hematocrit 45.3 % 42.2 % Mean Corpuscular Volume 82.4 FL 82.4 FL Mean Corpuscular Hemoglobin 27.6 PG 27.3 PG Mean Corpuscular Hemoglobin Concent 33.5 % 33.1 % Red Cell Distribution Width 15.4 % 15.2 % Platelet Count 197 TH/MM3 189 TH/MM3 Mean Platelet Volume 10.2 FL 10.4 FL Neutrophils (%) (Auto) 93.7 % 89.0 % Lymphocytes (%) (Auto) 2.3 % 7.7 % Monocytes (%) (Auto) 3.7 % 3.3 % Eosinophils (%) (Auto) 0.0 % 0.0 % Basophils (%) (Auto) 0.3 % 0.0 % Neutrophils # (Auto) 18.4 TH/MM3 15.5 TH/MM3 Lymphocytes # (Auto) 0.5 TH/MM3 1.3 TH/MM3 Monocytes # (Auto) 0.7 TH/MM3 0.6 TH/MM3 Eosinophils # (Auto) 0.0 TH/MM3 0.0 TH/MM3 Basophils # (Auto) 0.1 TH/MM3 0.0 TH/MM3 CBC Comment DIFF FINAL DIFF FINAL Differential Comment Prothrombin Time 11.3 SEC Prothromb Time International Ratio 1.0 RATIO Activated Partial Thromboplast Time 24.5 SEC 31.1 SEC 34.7 SEC Blood Urea Nitrogen 9 MG/DL 12 MG/DL Creatinine 1.09 MG/DL 0.60 MG/DL Random Glucose 171 MG/DL 116 MG/DL Calcium Level 9.0 MG/DL 8.4 MG/DL Magnesium Level 1.9 MG/DL 1.9 MG/DL Sodium Level 135 MEQ/L 138 MEQ/L Potassium Level 3.1 MEQ/L 2.8 MEQ/L Chloride Level 100 MEQ/L 102 MEQ/L Carbon Dioxide Level 24.7 MEQ/L 24.3 MEQ/L Anion Gap 10 MEQ/L 12 MEQ/L Estimat Glomerular Filtration Rate 69 ML/MIN 138 ML/MIN Total Creatine Kinase 701 U/L 3153 U/L 3229 U/L Creatine Kinase MB 89.7 NG/ML 486.6 NG/ML 501.1 NG/ML Creatine Kinase MB % 12.8 % 15.4 % 15.5 % Troponin I 3.97 NG/ML GREATER THAN 40.00 NG/ML GREATER THAN 40.00 NG/ML Lipase 90 U/L Total Protein 7.9 GM/DL Albumin 2.9 GM/DL Phosphorus Level 2.2 MG/DL Alkaline Phosphatase 92 U/L Aspartate Amino Transf (AST/SGOT) 558 U/L Alanine Aminotransferase (ALT/SGPT) 99 U/L Total Bilirubin 0.5 MG/DL Hemoglobin A1c 5.8 % Triglycerides Level 64 MG/DL Cholesterol Level 153 MG/DL LDL Cholesterol 104 MG/DL HDL Cholesterol 35.8 MG/DL Cholesterol/HDL Ratio 4.27 RATIO Free Thyroxine 1.23 NG/DL Thyroid Stimulating Hormone 3rd Gen 0.116 uIU/ML Test 12/17/16 17:50 12/18/16 05:56 12/18/16 06:25 Activated Partial Thromboplast Time 72.7 SEC Blood Urea Nitrogen 14 MG/DL Creatinine 0.59 MG/DL Random Glucose 105 MG/DL Total Protein 7.6 GM/DL Albumin 2.8 GM/DL Calcium Level 8.0 MG/DL Phosphorus Level 1.5 MG/DL Magnesium Level 1.9 MG/DL Alkaline Phosphatase 78 U/L Aspartate Amino Transf (AST/SGOT) 365 U/L Alanine Aminotransferase (ALT/SGPT) 89 U/L Total Bilirubin 0.7 MG/DL Sodium Level 139 MEQ/L Potassium Level 2.7 MEQ/L Chloride Level 105 MEQ/L Carbon Dioxide Level 24.5 MEQ/L Anion Gap 10 MEQ/L Estimat Glomerular Filtration Rate 141 ML/MIN Total Creatine Kinase 940 U/L Creatine Kinase MB 83.3 NG/ML Creatine Kinase MB % 8.9 % Troponin I GREATER THAN 40.00 NG/ML Triglycerides Level 126 MG/DL Cholesterol Level 144 MG/DL LDL Cholesterol 91 MG/DL HDL Cholesterol 28.3 MG/DL Cholesterol/HDL Ratio 5.08 RATIO White Blood Count 18.8 TH/MM3 Red Blood Count 5.15 MIL/MM3 Hemoglobin 14.1 GM/DL Hematocrit 42.5 % Mean Corpuscular Volume 82.5 FL Mean Corpuscular Hemoglobin 27.3 PG Mean Corpuscular Hemoglobin Concent 33.0 % Red Cell Distribution Width 15.0 % Platelet Count 214 TH/MM3 Mean Platelet Volume 9.8 FL Neutrophils (%) (Auto) 85.3 % Lymphocytes (%) (Auto) 6.9 % Monocytes (%) (Auto) 7.7 % Eosinophils (%) (Auto) 0.0 % Basophils (%) (Auto) 0.1 % Neutrophils # (Auto) 16.1 TH/MM3 Lymphocytes # (Auto) 1.3 TH/MM3 Monocytes # (Auto) 1.4 TH/MM3 Eosinophils # (Auto) 0.0 TH/MM3 Basophils # (Auto) 0.0 TH/MM3 CBC Comment DIFF FINAL Differential Comment Imaging Last Impressions Chest X-Ray 12/16/16 1601 Signed Impressions: Service Date/Time: Friday, December 16, 2016 16:30 - CONCLUSION: No acute disease. Jabier Rodríguez MD FACR Objective Remarks GENERAL: HAVING PAIN EVERYWHERE SKIN: Warm and dry.MULTIPLE AREAS OF SKIN CANCER HEAD: Atraumatic. Normocephalic. EYES: Pupils equal and round. No scleral icterus. No injection or drainage. EOMI ENT: No nasal bleeding or discharge. Mucous membranes pink and moist. TONGUE MIDLINE NECK: Trachea midline. No JVD. CARDIOVASCULAR: Regular rate and rhythm. S1, S2 NO S3 OR S4 RESPIRATORY: No accessory muscle use. Clear to auscultation. Breath sounds equal bilaterally. GASTROINTESTINAL: Abdomen soft, non-tender, nondistended. Hepatic and splenic margins not palpable. MUSCULOSKELETAL: Extremities without clubbing, cyanosis, or edema. No obvious deformities. NEUROLOGICAL: Awake and alert. No obvious cranial nerve deficits. Motor grossly within normal limits. Five out of 5 muscle strength in the arms and legs. Normal speech. PSYCHIATRIC: Appropriate mood and affect; insight and judgment normal. Procedures 1. Severe multivessel coronary artery disease. 2. Moderate left ventricular dysfunction consistent with ischemic cardiomyopathy. 3. Successful angioplasty and stenting of the mid left anterior descending artery. DISPOSITION Mr. Olivera will be monitored on telemetry after his procedure. We will continue therapy with Brilinta, baby aspirin, beta isabel and TERRI inhibitor. We will initiate aggressive modification of his cardiac risk factors. His overall prognosis is uncertain at this time due to his comorbidities. CATH DONE 12-17 Medications and IVs Current Medications Sodium Chloride (NS Flush) 2 ml UNSCH PRN IVF FLUSH AFTER USING IV ACCESS; Start 12/16/16 at 16:15; Stop 12/16/16 at 19:40; Status DC Ondansetron HCl (Zofran Inj) 4 mg ONCE ONCE IVP Last administered on 16:33; Start 12/16/16 at 16:15; Stop 12/16/16 at 16:16; Status DC Hydromorphone HCl (Dilaudid Pf Inj) 1 mg ONCE ONCE IVS Last administered on 16:34; Start 12/16/16 at 16:15; Stop 12/16/16 at 16:16; Status DC Sodium Chloride 500 ml @ 500 mls/hr BOLUS ONCE IV Last administered on 16:33; Start 12/16/16 at 16:15; Stop 12/16/16 at 17:14; Status DC Sodium Chloride 1,000 ml @ 125 mls/hr Q8H IV Last administered on 12/18/16 02 :11; Start 12/16/16 at 16:15 Heparin Sodium (Porcine) (Heparin Inj) 3,900 units ONCE ONCE IV ; Start at 17:15; Stop 12/16/16 at 18:00; Status DC Aspirin (Aspirin Chew) 324 mg ONCE ONCE CHEW Last administered on 12/16/16 17 :55; Start 12/16/16 at 17:15; Stop 12/16/16 at 17:16; Status DC Nitroglycerin (Nitroglycerin 2% Oint) 1 inch ONCE ONCE TOPICAL Last administered on 12/16/16 17:55; Start 12/16/16 at 17:15; Stop 12/16/16 at 17:17 ; Status DC Heparin Sodium/ Dextrose 250 ml @ 7.8 mls/hr Q32H4M PRN IV Coagulation management; Start 12/16/16 at 17:41; Status Cancel Heparin Sodium (Porcine) (Heparin Inj) 3,200 units ONCE ONCE IV Last administered on 12/16/16 18:15; Start 12/16/16 at 18:00; Stop 12/16/16 at 18:02 ; Status DC Heparin Sodium/ Dextrose 250 ml @ 6.36 mls/hr [id number] PRN IV Coagulation management Last administered on 12/16/16 18:16; Start 12/16/16 at 18:00; Stop 12/16/16 at 19:40; Status DC Sodium Chloride (NS Flush) 2 ml BID IV FLUSH Last administered on 12/17/16 21: 00; Start 12/16/16 at 21:00 Sodium Chloride (NS Flush) 2 ml UNSCH PRN IV FLUSH FLUSH AFTER USING IV ACCESS ; Start 12/16/16 at 18:00 Aspirin (Ecotrin Ec) 325 mg DAILY PO Last administered on 12/17/16 09:53; Start 12/17/16 at 09:00; Stop 12/17/16 at 15:58; Status DC Nitroglycerin (Nitroglycerin 2% Oint) 1 inch Q6H TOP Last administered on 06:22; Start 12/17/16 at 00:00 Nitroglycerin (Nitrostat Sl) 0.4 mg Q5M PRN SL CHEST PAIN; Start 12/16/16 at 18 :00 Morphine Sulfate (Morphine Inj) 4 mg Q3H PRN IV SEVERE PAIN/CHEST PAIN Last administered on 12/17/16 03:36; Start 12/16/16 at 18:45 Acetaminophen (Tylenol) 650 mg Q6H PRN PO HEADACHE OR TEMP > 101 F; Start 12/16 at 18:00 Docusate Sodium (Colace) 100 mg BID PRN PO CONSTIPATION; Start 12/16/16 at 18: 00; Stop 12/16/16 at 19:45; Status DC Alprazolam (Xanax) 0.25 mg Q8H PRN PO ANXIETY Last administered on 12/18/16 00 :02; Start 12/16/16 at 18:00 Ondansetron HCl (Zofran Inj) 4 mg Q6H PRN IV NAUSEA OR VOMITING; Start at 18:00; Stop 12/16/16 at 19:41; Status DC Carvedilol (Coreg) 3.125 mg BID PO Last administered on 12/17/16 09:54; Start 12/16/16 at 21:00; Stop 12/17/16 at 15:58; Status DC Ramipril (Altace) 2.5 mg DAILY PO Last administered on 12/17/16 09:53; Start 12/17/16 at 09:00; Stop 12/17/16 at 16:01; Status DC Atorvastatin Calcium (Lipitor) 80 mg HS PO Last administered on 12/16/16 21:19 ; Start 12/16/16 at 21:00; Stop 12/17/16 at 16:02; Status DC Heparin Sodium/ Dextrose 250 ml @ 6.36 mls/hr Q24H PRN IV Coagulation management Last administered on 12/16/16 20:38; Start 12/16/16 at 17:54 Sodium Chloride (NS Flush) 2 ml UNSCH PRN IV FLUSH FLUSH AFTER USING IV ACCESS ; Start 12/16/16 at 18:00; Stop 12/16/16 at 19:40; Status DC Sodium Chloride (NS Flush) 2 ml BID IV FLUSH ; Start 12/16/16 at 21:00; Stop at 21:00; Status DC Ondansetron HCl (Zofran Inj) 4 mg Q6H PRN IVP NAUSEA OR VOMITING; Start at 18:00 Prochlorperazine (Compazine Supp) 25 mg Q12H PRN RECTAL NAUSEA OR VOMITING; Start 12/16/16 at 18:00; Stop 12/16/16 at 20:45; Status DC Zolpidem Tartrate (Ambien) 5 mg HS PRN PO INSOMNIA Last administered on 00:15; Start 12/16/16 at 18:00 Acetaminophen (Tylenol) 650 mg Q6H PRN PO PAIN SCALE 1 TO 2; Start 12/16/16 at 18:00 Oxycodone/ Acetaminophen (Percocet 5-325 Mg) 1 tab Q6H PRN PO PAIN SCALE 3 TO 5; Start 12/16/16 at 18:00 Oxycodone/ Acetaminophen (Percocet 10-325 Mg) 1 tab Q6H PRN PO PAIN SCALE 6 TO 10; Start 12/16/16 at 18:00 Morphine Sulfate (Morphine Inj) 2 mg Q3H PRN IV Pain 3-5; if unable to take PO ; Start 12/16/16 at 18:00 Morphine Sulfate (Morphine Inj) 4 mg Q3H PRN IV Pain 6-10;if unable to take PO ; Start 12/16/16 at 18:00 Morphine Sulfate (Morphine Inj) 4 mg Q3H PRN IV BREAKTHROUGH PAIN; Start at 18:00 Naloxone HCl (Narcan Inj) 0.4 mg UNSCH PRN IV SEE LABEL COMMENTS; Start at 18:00 Senna/Docusate Sodium (Kim-Colace) 1 tab BID PO ; Start 12/16/16 at 21:00; Stop 12/16/16 at 21:00; Status DC Magnesium Hydroxide (Milk Of Magnesia Liq) 30 ml Q12H PRN PO MILD - MODERATE CONSTIPATION; Start 12/16/16 at 18:00 Sennosides (Senokot) 17.2 mg Q12H PRN PO MODERATE - SEVERE CONSTIPATION; Start 12/16/16 at 18:00 Bisacodyl (Dulcolax Supp) 10 mg DAILY PRN RECTAL SEVERE CONSITIPATION; Start at 18:00 Lactulose (Lactulose Liq) 30 ml DAILY PRN PO SEVERE CONSITIPATION; Start at 18:00 Hydromorphone HCl (Dilaudid) 4 mg Q4H PRN PO BREAKTHROUG PAIN 6-10; Start 12/16 at 18:15; Stop 12/17/16 at 05:33; Status DC Lactulose (Lactulose Liq) 30 ml BID PO ; Start 12/16/16 at 21:00 Ondansetron HCl (Zofran Odt) 4 mg QID PRN SL NAUSEA OR VOMITING; Start at 18:15 Non-Formulary Medication 10 mg DAILY .ROUTE ; Start 12/17/16 at 09:00; Status UNV Non-Formulary Medication 200 mg DAILY PO ; Start 12/17/16 at 09:00; Status UNV Nicotine (Habitrol 14 Mg Patch.24 Hr) 1 patch ONCE ONCE T-DERMAL Last administered on 12/16/16 20:52; Start 12/16/16 at 20:00; Stop 12/16/16 at 20:01 ; Status DC Nicotine (Habitrol 14 Mg Patch.24 Hr) 1 patch DAILY T-DERMAL Last administered on 12/17/16 10:30; Start 12/17/16 at 09:00 Miscellaneous Information 1 DAILY T-DERMAL Last administered on 12/17/16 09:00 ; Start 12/17/16 at 09:00 Albuterol/ Ipratropium (Duoneb Neb) 1 ampule Q4HR NEB PRN NEB SOB/COUGH; Start 12/16/16 at 18:30 Guaifenesin (Mucinex Er) 600 mg BID PO Last administered on 12/17/16 09:53; Start 12/16/16 at 21:00 Patient Own Medication PT OWN MED: NEXA... DAILY PO ; Start 12/17/16 at 09:00; Status Future Hold Hydromorphone HCl (Dilaudid) 4 mg Q4H PRN PO BREAKTHROUGH PAIN 6-10 Last administered on 12/18/16 06:24; Start 12/17/16 at 05:45 Potassium Chloride (KCl) 40 meq ONCE ONCE PO Last administered on 12/17/16 09 :54; Start 12/17/16 at 08:30; Stop 12/17/16 at 08:31; Status DC Potassium Chloride (KCl) 40 meq DAILY PO Last administered on 12/17/16 09:54; Start 12/17/16 at 09:00 Heparin Sodium/ Sodium Chloride 1,000 ml @ As Directed STK-MED ONCE .ROUTE Last administered on 12/17/16 13:48; Start 12/17/16 at 13:48; Stop 12/17/16 at 13:50; Status DC Fentanyl Citrate (fentaNYL INJ) 100 mcg STK-MED ONCE .ROUTE Last administered on 12/17/16 14:28; Start 12/17/16 at 13:48; Stop 12/17/16 at 13:51; Status DC Midazolam HCl (Versed Inj) 5 mg STK-MED ONCE .ROUTE Last administered on 14:29; Start 12/17/16 at 13:48; Stop 12/17/16 at 13:51; Status DC Midazolam HCl (Versed Inj) 2 mg STK-MED ONCE .ROUTE Last administered on 14:42; Start 12/17/16 at 14:40; Stop 12/17/16 at 14:41; Status DC Heparin Sodium (Porcine) (Heparin Inj) 10,000 units STK-MED ONCE .ROUTE Last administered on 12/17/16 14:48; Start 12/17/16 at 14:41; Stop 12/17/16 at 14:42 ; Status DC Ticagrelor (Brilinta) 180 mg STK-MED ONCE PO Last administered on 12/17/16 15: 24; Start 12/17/16 at 15:10; Stop 12/17/16 at 15:11; Status DC Aspirin (Ecotrin Ec) 81 mg DAILY PO ; Start 12/18/16 at 09:00 Carvedilol (Coreg) 6.25 mg BID PO Last administered on 12/17/16 19:52; Start 12/17/16 at 21:00 Sodium Chloride 1,000 ml @ 100 mls/hr Q10H IV Last administered on 12/17/16 18:17; Start 12/17/16 at 15:58; Stop 12/17/16 at 19:57; Status DC Ticagrelor (Brilinta) 90 mg BID PO ; Start 12/18/16 at 09:00 Miscellaneous Information 1 ONCE ONCE XX ; Start 12/17/16 at 16:00; Stop at 16:59; Status DC Lisinopril (Prinivil) 5 mg DAILY PO ; Start 12/18/16 at 09:00 Atorvastatin Calcium (Lipitor) 40 mg HS PO ; Start 12/17/16 at 21:00; Status UNV Atorvastatin Calcium (Lipitor) 40 mg HS PO Last administered on 12/17/16 19:52 ; Start 12/17/16 at 21:00 Clonidine (Catapres) 0.1 mg Q4H PRN PO SBP>160, DBP>90 Last administered on t 06:27; Start 12/17/16 at 19:00 Hydralazine HCl (Apresoline Inj) 20 mg Q4H PRN IV PUSH SBP>160, DBP>90; Start 12/17/16 at 19:00 A/P Problem List: (1) Hypertension ICD Code: I10 - Essential (primary) hypertension (2) Anxiety ICD Code: F41.9 - Anxiety disorder, unspecified (3) Depression ICD Code: F32.9 - Major depressive disorder, single episode, unspecified (4) Tobacco abuse ICD Code: Z72.0 - Tobacco use (5) Hepatitis C ICD Code: B19.20 - Unspecified viral hepatitis C without hepatic coma (6) Liver cancer ICD Code: C22.9 - Malignant neoplasm of liver, not specified as primary or secondary (7) Skin lesion ICD Code: L98.9 - Skin lesion Status: Acute (8) Non-ST elevation MO (NSTEMI) ICD Code: I21.4 - Non-ST elevation (NSTEMI) myocardial infarction Status: Acute Permanent Comment: 1. Severe multivessel coronary artery disease. 2. Moderate left ventricular dysfunction consistent with ischemic cardiomyopathy. 3. Successful angioplasty and stenting of the mid left anterior descending artery. DISPOSITION Mr. Olivera will be monitored on telemetry after his procedure. We will continue therapy with Brilinta, baby aspirin, beta isabel and TRERI inhibitor. We will initiate aggressive modification of his cardiac risk factors. His overall prognosis is uncertain at this time due to his comorbidities. CATH DONE 12-17 Last Edited By: Jabier Conti on Dec 18, 2016 08:30 (9) Leukocytosis ICD Code: D72.829 - Elevated white blood cell count, unspecified Status: Acute Assessment and Plan Non-ST elevation MO we'll trend troponins consult cardiology continue on heparin drip continue on aspirin and Nitropaste We'll get an echocardiogram Pain control VERY POSITIVE TROPONINS FOR CARDIAC CATH 12-17 1. Severe multivessel coronary artery disease. 2. Moderate left ventricular dysfunction consistent with ischemic cardiomyopathy. 3. Successful angioplasty and stenting of the mid left anterior descending artery. DISPOSITION Mr. Olivera will be monitored on telemetry after his procedure. We will continue therapy with Brilinta, baby aspirin, beta isabel and TERRI inhibitor. We will initiate aggressive modification of his cardiac risk factors. His overall prognosis is uncertain at this time due to his comorbidities. CATH DONE 12-17 Hepatocellular carcinoma and history of hepatitis C still undergoing treatment with oral chemotherapy Leukocytosis a.m. labs and trend Hypertension home meds Hyperlipidemia home meds Tobacco abuse smoking cessation recommended Anxiety and anti-anxiety medications HYPOKALEMIA- REPLACE POOR APPETITE PT AND OT STAPH AUREUS BY CULTURE- BACTRIM AND RIFAMPIN AM LABS VINEET ROLLINS AND PATIENT Jabier ContiDarshan DO Dec 18, 2016 08:36
[2016-12-18] MEDS: REMOVE OLD PATCH T-DERMAL SCH (08:58)
[2016-12-18] MEDS: NICOTINE 14 MG/24 HR PATCH T-DERMAL SCH (08:58)
[2016-12-18] MEDS: CARVEDILOL 3.125 MG TAB PO SCH ×2 (08:59→19:42)
[2016-12-18] MEDS: LACTULOSE SYRUP 20 GM/30 ML CUP PO SCH ×2 (08:59→19:41)
[2016-12-18] MEDS: TICAGRELOR 90 MG TAB PO SCH ×2 (08:59→19:42)
[2016-12-18] MEDS: LISINOPRIL 5 MG TAB PO SCH (08:59)
[2016-12-18] MEDS: guaiFENesin E.R. 600 MG TAB PO SCH ×2 (08:59→19:41)
[2016-12-18] MEDS: POTASSIUM CHLORIDE 20 MEQ CONTROLLED RELEASE TAB PO SCH (09:00)
[2016-12-18] MEDS: ASPIRIN EC 81 MG TABEC PO SCH (09:00)
[2016-12-18] MEDS: SODIUM CHLORIDE 0.9% FLUSH 10 ML FLUSH IV FLUSH SCH ×2 (09:01→19:42)
--- NOTE | 2016-12-18 13:09 | PD.CARD.PN ---
Subjective Subjective Remarks No CP or SOB, feels much better Objective Medications Active Medications Aspirin (Ecotrin Ec) 81 mg DAILY PO Last administered on 12/18/16 09:00; Admin Dose 81 MG; Start 12/18/16 at 09:00 Atorvastatin Calcium (Lipitor) 40 mg HS PO Last administered on 12/17/16 19:52 ; Admin Dose 40 MG; Start 12/17/16 at 21:00 Atorvastatin Calcium (Lipitor) 40 mg HS PO; Start 12/17/16 at 21:00; Status UNV Carvedilol (Coreg) 6.25 mg BID PO Last administered on 12/18/16 08:59; Admin Dose 6.25 MG; Start 12/17/16 at 21:00 Clonidine (Catapres) 0.1 mg Q4H PRN PO Last administered on 12/18/16 06:27; Admin Dose 0.1 MG; Start 12/17/16 at 19:00 Fentanyl Citrate (fentaNYL INJ) 100 mcg STK-MED ONCE .ROUTE Last administered on 12/17/16 14:28; Admin Dose 100 MCG; Start 12/17/16 at 13:48; Stop 12/17/16 at 13:51; Status DC Heparin Sodium (Porcine) (Heparin Inj) 10,000 units STK-MED ONCE .ROUTE Last administered on 12/17/16 14:48; Admin Dose 10,000 UNITS; Start 12/17/16 at 14: 41; Stop 12/17/16 at 14:42; Status DC Heparin Sodium/ Sodium Chloride 1,000 ml @ As Directed STK-MED ONCE .ROUTE Last administered on 12/17/16 13:48; Admin Dose 0 MLS/HR; Start 12/17/16 at 13: 48; Stop 12/17/16 at 13:50; Status DC Hydralazine HCl (Apresoline Inj) 20 mg Q4H PRN IV PUSH; Start 12/17/16 at 19:00 Iohexol (OMNIPAQUE 350 INJ (Litigation Secretary)) 50 ml STK-MED ONCE OTHER; Start 12/17/16 at 13:49; Stop 12/18/16 at 08:54; Status DC Iohexol (OMNIPAQUE 350 INJ (Litigation Secretary)) 100 ml STK-MED ONCE OTHER; Start at 13:49; Stop 12/18/16 at 08:54; Status DC Lisinopril (Prinivil) 5 mg DAILY PO Last administered on 12/18/16 08:59; Admin Dose 5 MG; Start 12/18/16 at 09:00 Midazolam HCl (Versed Inj) 2 mg STK-MED ONCE .ROUTE Last administered on 14:42; Admin Dose 2 MG; Start 12/17/16 at 14:40; Stop 12/17/16 at 14:41; Status DC Midazolam HCl (Versed Inj) 5 mg STK-MED ONCE .ROUTE Last administered on 14:29; Admin Dose 5 MG; Start 12/17/16 at 13:48; Stop 12/17/16 at 13:51; Status DC Miscellaneous Information 1 ONCE ONCE XX; Start 12/17/16 at 16:00; Stop at 16:59; Status DC Potassium Chloride (KCl) 40 meq BID PO; Start 12/18/16 at 09:00; Status UNV Potassium Chloride (KCl) 40 meq ONCE ONCE PO; Start 12/18/16 at 08:45; Stop at 08:46; Status UNV Rifampin (Rifampin) 300 mg Q12HR PO; Start 12/18/16 at 09:00; Status UNV Sodium Chloride 1,000 ml @ 100 mls/hr Q10H IV Last administered on 12/17/16 18 :17; Admin Dose 100 MLS/HR; Start 12/17/16 at 15:58; Stop 12/17/16 at 19:57; Status DC Ticagrelor (Brilinta) 90 mg BID PO Last administered on 12/18/16 08:59; Admin Dose 90 MG; Start 12/18/16 at 09:00 Ticagrelor (Brilinta) 180 mg STK-MED ONCE PO Last administered on 12/17/16 15: 24; Admin Dose 180 MG; Start 12/17/16 at 15:10; Stop 12/17/16 at 15:11; Status DC Trimethoprim/ Sulfamethoxazole (Bactrim Ds 800-160 Mg) 1 tab Q12HR PO; Start at 09:00; Status UNV Vital Signs / I&O Vital Signs Date Time Temp Pulse Resp B/P (MAP) Pulse Ox O2 Delivery O2 Flow Rate FiO2 12/18/16 11:15 98.6 75 18 113/72 (86) 97 12/18/16 08:15 98.7 86 18 116/76 (89) 97 12/18/16 07:01 89 12/18/16 06:00 86 12/18/16 05:00 100 12/18/16 04:30 100.0 107 20 162/103 (122) 97 12/18/16 04:00 97 12/18/16 03:00 98 12/18/16 02:00 94 12/18/16 01:00 94 12/18/16 00:00 108 12/18/16 00:00 99.1 104 20 141/94 (110) 98 12/17/16 23:00 92 12/17/16 22:00 90 12/17/16 21:00 100 12/17/16 20:00 115 12/17/16 20:00 98.0 112 20 163/106 (125) 99 12/17/16 19:00 104 12/17/16 18:15 102 18 178/102 (127) 96 12/17/16 18:09 16 12/17/16 15:00 76 I/O 12/17/16 12/17/16 12/17/16 12/18/16 12/18/16 12/18/16 07:00 15:00 23:00 07:00 15:00 23:00 Intake Total 1125 ml 350 ml 1584 ml 750 ml Output Total 1100 ml 725 ml Balance 1125 ml -750 ml 859 ml 750 ml Intake Oral 350 ml 100 ml IV Total 1125 ml 1484 ml 750 ml Output Urine Total 1100 ml 725 ml # Voids 2 # Bowel Movements 0 Physical Exam GENERAL: In NAD SKIN: Warm and dry. HEAD: Normocephalic. EYES: No scleral icterus. No injection or drainage. NECK: Supple, trachea midline. No JVD or lymphadenopathy. CARDIOVASCULAR: Regular rate and rhythm without murmurs, gallops, or rubs. RESPIRATORY: Breath sounds equal bilaterally. No accessory muscle use. GASTROINTESTINAL: Abdomen soft, non-tender, nondistended. MUSCULOSKELETAL: No cyanosis, or edema. Groin benign Laboratory Laboratory Tests Test 12/17/16 17:50 12/18/16 05:56 12/18/16 06:25 Activated Partial Thromboplast Time 72.7 SEC Blood Urea Nitrogen 14 MG/DL Creatinine 0.59 MG/DL Random Glucose 105 MG/DL Total Protein 7.6 GM/DL Albumin 2.8 GM/DL Calcium Level 8.0 MG/DL Phosphorus Level 1.5 MG/DL Magnesium Level 1.9 MG/DL Alkaline Phosphatase 78 U/L Aspartate Amino Transf (AST/SGOT) 365 U/L Alanine Aminotransferase (ALT/SGPT) 89 U/L Total Bilirubin 0.7 MG/DL Sodium Level 139 MEQ/L Potassium Level 2.7 MEQ/L Chloride Level 105 MEQ/L Carbon Dioxide Level 24.5 MEQ/L Anion Gap 10 MEQ/L Estimat Glomerular Filtration Rate 141 ML/MIN Total Creatine Kinase 940 U/L Creatine Kinase MB 83.3 NG/ML Creatine Kinase MB % 8.9 % Troponin I GREATER THAN 40.00 NG/ML Triglycerides Level 126 MG/DL Cholesterol Level 144 MG/DL LDL Cholesterol 91 MG/DL HDL Cholesterol 28.3 MG/DL Cholesterol/HDL Ratio 5.08 RATIO White Blood Count 18.8 TH/MM3 Red Blood Count 5.15 MIL/MM3 Hemoglobin 14.1 GM/DL Hematocrit 42.5 % Mean Corpuscular Volume 82.5 FL Mean Corpuscular Hemoglobin 27.3 PG Mean Corpuscular Hemoglobin Concent 33.0 % Red Cell Distribution Width 15.0 % Platelet Count 214 TH/MM3 Mean Platelet Volume 9.8 FL Neutrophils (%) (Auto) 85.3 % Lymphocytes (%) (Auto) 6.9 % Monocytes (%) (Auto) 7.7 % Eosinophils (%) (Auto) 0.0 % Basophils (%) (Auto) 0.1 % Neutrophils # (Auto) 16.1 TH/MM3 Lymphocytes # (Auto) 1.3 TH/MM3 Monocytes # (Auto) 1.4 TH/MM3 Eosinophils # (Auto) 0.0 TH/MM3 Basophils # (Auto) 0.0 TH/MM3 CBC Comment DIFF FINAL Differential Comment Assessment and Plan Problem List: (1) Non-ST elevation [place] (NSTEMI) ICD Codes: I21.4 - Non-ST elevation (NSTEMI) myocardial infarction Status: Acute Permanent Comment: 1. Severe multivessel coronary artery disease. 2. Moderate left ventricular dysfunction consistent with ischemic cardiomyopathy. 3. Successful angioplasty and stenting of the mid left anterior descending artery. DISPOSITION Mr. Olivera will be monitored on telemetry after his procedure. We will continue therapy with Brilinta, baby aspirin, beta isabel and TERRI inhibitor. We will initiate aggressive modification of his cardiac risk factors. His overall prognosis is uncertain at this time due to his comorbidities. CATH DONE 12-17 Last Edited By: Jabier Conti on Dec 18, 2016 08:30 (2) CAD (coronary artery disease) ICD Codes: I25.10 - Atherosclerotic heart disease of [place] coronary artery without angina pectoris (3) Stented coronary artery ICD Codes: Z95.5 - Presence of coronary angioplasty implant and graft (4) Hepatitis C ICD Codes: B19.20 - Unspecified viral hepatitis C without hepatic coma (5) Liver cancer ICD Codes: C22.9 - Malignant neoplasm of liver, not specified as primary or secondary (6) Tobacco abuse ICD Codes: Z72.0 - Tobacco use (7) Hypertension ICD Codes: I10 - Essential (primary) hypertension Assessment and Plan No angina or CHF symptoms. Groin stable. Continue Brilinta, baby ASA, carvedilol , lisinopril and atorvastatin. Increase activity. OK to discharge home. Will schedule outpt f/u. Eric Inman MD Dec 18, 2016 13:09
[2016-12-18] MEDS ORDERED: POTASSIUM CHLORIDE 10 MEQ CONTROLLED RELEASE TAB PO ONE (14:30)
--- NOTE | 2016-12-18 16:58 | EKG ---
Date Performed: 12/18/2016 Time Performed: 06:35:41 PTAGE: 61 years EKG: Sinus rhythm LEFT VENTRICULAR HYPERTROPHY AND ST-T CHANGE Since previous tracing, no significant change noted ABN ORMAL ECG PREVIOUS TRACING : 12/17/2016 05.34 DOCTOR: Jaja Castillo Interpretating Date/Time 12/18/2016 16:57:08
[2016-12-18] MEDS: SULFAMETHOXAZOLE-TRIMETHOPRIM DS 800-160 MG TAB PO SCH ×2 (17:43→21:00)
[2016-12-18] MEDS: RIFAMPIN 150 MG CAP PO SCH ×2 (17:43→19:42)
[2016-12-18] MEDS: ATORVASTATIN 40 MG TAB PO SCH (19:41)
[2016-12-18] MEDS: ZOLPIDEM TARTRATE 5 MG TAB PO PRN (23:34)
[2016-12-19] VITALS (13 sets, daily range): BP systolic 113; BP diastolic 69; PULSE 63–74; RESP 18–20; TEMP 98.5; O2SAT 96–98
[2016-12-19] MEDS: NITROGLYCERIN 2% OINT 1 GM PACKET TOP SCH (04:50)
[2016-12-19] MEDS: HYDROmorphone HCL 2 MG TAB PO PRN ×2 (04:51→09:23)
[2016-12-19 07:00] LABS: AUTOMATED NEUTROPHIL # 6.8 TH/MM3 (1.8-7.7); BASOPHIL # 0.1 TH/MM3 (0-0.2); BASOPHIL % 0.7 % (0.0-2.0); EOSINOPHIL % 0.2 % (0.0-4.0); HEMATOCRIT 34.5 % (39.0-51.0); HEMO FLAGS DIFF FINAL; LYMPH % 18.9 % (9.0-44.0); LYMPHOCYTE # 1.8 TH/MM3 (1.0-4.8); MEAN CELL VOLUME 82.7 FL (80.0-100.0); MEAN CORPUSCULAR HEMOGLOBIN 27.5 PG (27.0-34.0); MEAN CORPUSCULAR HGB CONC 33.2 % (32.0-36.0); MONO % 10.3 % (0.0-8.0); NEUT % 69.9 % (16.0-70.0); PLATELET COUNT 152 TH/MM3 (150-450); RED BLOOD COUNT 4.17 MIL/MM3 (4.50-5.90); RED CELL DISTRIBUTION WIDTH 15.3 % (11.6-17.2); WHITE BLOOD COUNT 9.7 TH/MM3 (4.0-11.0)
[2016-12-19 07:11] LABS: ALKALINE PHOSPHATASE 61 U/L (45-117); ALT (GPT) 59 U/L (12-78); ANION GAP 7 MEQ/L (5-15); AST (GOT) 163 U/L (15-37); BICARBONATE 25.9 MEQ/L (21.0-32.0); BLOOD UREA NITROGEN 21 MG/DL (7-18); CHLORIDE 109 MEQ/L (98-107); GLOMERULAR FILTRATION RATE 119 ML/MIN (>89); MAGNESIUM 2.1 MG/DL (1.5-2.5); POTASSIUM 3.4 MEQ/L (3.5-5.1); SODIUM (NA) 142 MEQ/L (136-145); TOTAL BILIRUBIN ADULT 0.8 MG/DL (0.2-1.0)
[2016-12-19] MEDS ORDERED: BRIL90TA PO (08:49)
[2016-12-19] MEDS ORDERED: CARV3.125 PO (08:49)
[2016-12-19] MEDS ORDERED: DILA2TAB2 PO (08:49)
[2016-12-19] MEDS ORDERED: POTA20TA5 PO (08:49)
[2016-12-19] MEDS ORDERED: ATOR40TA16 PO (08:49)
[2016-12-19] MEDS ORDERED: LISI-519 PO (08:49)
--- NOTE | 2016-12-19 08:50 | HHI.DCPOC ---
Discharge Care Plan Diagnosis: (1) Non-ST elevation [place] (NSTEMI) (2) Hepatitis C (3) Skin lesion (4) CAD (coronary artery disease) Your Health Problems Are: Chest Pain Goals to Promote Your Health * To prevent worsening of your condition and complications * To maintain your health at the optimal level FINISH TAKING YOUR ANTIBIOTIC PRESCRIBED PREVIOUSLY BY YOUR DOCTOR FOR YOUR ARMPIT ABSCESSES Directions to Meet Your Goals Take your medications as prescribed Follow your dietary instruction Follow activity as directed Keep your appointments as scheduled Take your immunizations and boosters as scheduled If your symptoms worsen call your PCP, if no PCP go to Urgent Care Center or Emergency Room Smoking is Dangerous to Your Health. Avoid second hand smoke Call the 24-hour hour crisis hotline for domestic abuse at Fransisco Rosas MD Dec 19, 2016 08:50
--- NOTE | 2016-12-19 08:56 | HHI.DS ---
Discharge Summary Admission Date Dec 16, 2016 at 17:18 Discharge Date: Dec 19, 2016 Admitting Diagnosis Non stemi, (1) Hypertension ICD Code: I10 - Essential (primary) hypertension (2) Anxiety ICD Code: F41.9 - Anxiety disorder, unspecified (3) Depression ICD Code: F32.9 - Major depressive disorder, single episode, unspecified (4) Tobacco abuse ICD Code: Z72.0 - Tobacco use Status: Chronic (5) Hepatitis C ICD Code: B19.20 - Unspecified viral hepatitis C without hepatic coma Status: Chronic (6) Liver cancer ICD Code: C22.9 - Malignant neoplasm of liver, not specified as primary or secondary Status: Chronic (7) Skin lesion ICD Code: L98.9 - Skin lesion Status: Chronic (8) Non-ST elevation [place] (NSTEMI) ICD Code: I21.4 - Non-ST elevation (NSTEMI) myocardial infarction Diagnosis: Principal Status: Acute (9) Leukocytosis ICD Code: D72.829 - Elevated white blood cell count, unspecified Status: Acute Procedures 1. Severe multivessel coronary artery disease. 2. Moderate left ventricular dysfunction consistent with ischemic cardiomyopathy. 3. Successful angioplasty and stenting of the mid left anterior descending artery. DISPOSITION Mr. Olivera will be monitored on telemetry after his procedure. We will continue therapy with Brilinta, baby aspirin, beta isabel and TERRI inhibitor. We will initiate aggressive modification of his cardiac risk factors. His overall prognosis is uncertain at this time due to his comorbidities. CATH DONE 12-17 Brief History - From Admission This is a 61 year-old gentleman with a history of hepatocellular carcinoma, hepatitis C, presents today with complaint of left sided chest pain. Patient reports pleuritic pain. He reports pain with movement. He states pain is sharp and stabbing. He reports it's unrelenting. Patient denies any shortness of breath. He does report cough but is unsure whether there is color to his phlegm. The patient denies any abdominal pain. He does have an episode of vomiting bilious material. There are no other complaints time my examination. he was found to have a non-ST elevation [place] with positive troponins. Will be admitted placed on heparin drip consult cardiology and trend troponins as well as get an echocardiogram CBC/BMP: 12/19/16 0546 12/19/16 0546 Significant Findings Laboratory Tests Test 12/16/16 16:05 12/16/16 23:38 12/17/16 05:18 12/17/16 09:22 White Blood Count 19.6 TH/MM3 (4.0-11.0) 17.5 TH/MM3 (4.0-11.0) Neutrophils (%) (Auto) 93.7 % (16.0-70.0) 89.0 % (16.0-70.0) Lymphocytes (%) (Auto) 2.3 % (9.0-44.0) 7.7 % (9.0-44.0) Neutrophils # (Auto) 18.4 TH/MM3 (1.8-7.7) 15.5 TH/MM3 (1.8-7.7) Lymphocytes # (Auto) 0.5 TH/MM3 (1.0-4.8) Random Glucose 171 MG/DL (74-106) 116 MG/DL (74-106) Sodium Level 135 MEQ/L (136-145) Potassium Level 3.1 MEQ/L (3.5-5.1) 2.8 MEQ/L (3.5-5.1) Estimat Glomerular Filtration Rate 69 ML/MIN (>89) Total Creatine Kinase 701 U/L (39-308) 3153 U/L (39-308) 3229 U/L (39-308) Creatine Kinase MB 89.7 NG/ML (0.5-3.6) 486.6 NG/ML (0.5-3.6) 501.1 NG/ML (0.5-3.6) Creatine Kinase MB % 12.8 % (0.0-4.0) 15.4 % (0.0-4.0) 15.5 % (0.0-4.0) Troponin I 3.97 NG/ML (0.02-0.05) GREATER THAN 40.00 NG/ML GREATER THAN 40.00 NG/ML Activated Partial Thromboplast Time 31.1 SEC (24.3-30.1) 34.7 SEC (24.3-30.1) Albumin 2.9 GM/DL (3.4-5.0) Calcium Level 8.4 MG/DL (8.5-10.1) Phosphorus Level 2.2 MG/DL (2.5-4.9) Aspartate Amino Transf (AST/SGOT) 558 U/L (15-37) Alanine Aminotransferase (ALT/SGPT) 99 U/L (12-78) LDL Cholesterol 104 MG/DL (0-99) HDL Cholesterol 35.8 MG/DL (40.0-60.0) Thyroid Stimulating Hormone 3rd Gen 0.116 uIU/ML (0.358-3.740) Test 12/17/16 17:50 12/18/16 05:56 12/18/16 06:25 12/19/16 05:46 Activated Partial Thromboplast Time 72.7 SEC (24.3-30.1) Creatinine 0.59 MG/DL (0.60-1.30) Albumin 2.8 GM/DL (3.4-5.0) 2.3 GM/DL (3.4-5.0) Calcium Level 8.0 MG/DL (8.5-10.1) 8.0 MG/DL (8.5-10.1) Phosphorus Level 1.5 MG/DL (2.5-4.9) 0.9 MG/DL (2.5-4.9) Aspartate Amino Transf (AST/SGOT) 365 U/L (15-37) 163 U/L (15-37) Alanine Aminotransferase (ALT/SGPT) 89 U/L (12-78) Potassium Level 2.7 MEQ/L (3.5-5.1) 3.4 MEQ/L (3.5-5.1) Total Creatine Kinase 940 U/L (39-308) Creatine Kinase MB 83.3 NG/ML (0.5-3.6) Creatine Kinase MB % 8.9 % (0.0-4.0) Troponin I GREATER THAN 40.00 NG/ML GREATER THAN 40.00 NG/ML HDL Cholesterol 28.3 MG/DL (40.0-60.0) White Blood Count 18.8 TH/MM3 (4.0-11.0) Neutrophils (%) (Auto) 85.3 % (16.0-70.0) Lymphocytes (%) (Auto) 6.9 % (9.0-44.0) Neutrophils # (Auto) 16.1 TH/MM3 (1.8-7.7) Monocytes # (Auto) 1.4 TH/MM3 (0-0.9) 1.0 TH/MM3 (0-0.9) Red Blood Count 4.17 MIL/MM3 (4.50-5.90) Hemoglobin 11.5 GM/DL (13.0-17.0) Hematocrit 34.5 % (39.0-51.0) Monocytes (%) (Auto) 10.3 % (0.0-8.0) Blood Urea Nitrogen 21 MG/DL (7-18) Total Protein 6.1 GM/DL (6.4-8.2) Chloride Level 109 MEQ/L (98-107) PE at Discharge GENERAL: NAD CARDIOVASCULAR: Regular rate and rhythm without murmurs, gallops, or rubs. No JVD, No LE edema RESPIRATORY: Breath sounds equal and clear bilaterally. Unlabored breathing SKIN: nontender Scars resembling resolved/healed bilateral axillary abscesses Hospital Course Patient was admitted, started on a heparin drip. Cardiology was consulted, performed a left heart catheter with successful angioplasty and stenting of the mid LAD. Echocardiogram showed EF of 55-60%. Patient remained clinically stable post catheter and was stable for discharge from cardiology standpoint. Patient has met maximum benefit from hospitalization and is clinically stable for discharge. Patient was informed to finish taking his outpatient antibiotics of Keflex for his bilateral axillary abscesses which appeared to have resolved by the time I examined him on the last day of hospitalization. Pt Condition on Discharge: Good Discharge Disposition: Discharge Home Discharge Time: > 30 minutes Discharge Instructions DIET: Follow Instructions for: Heart Healthy Diet Activities you can perform: Regular-No Restrictions Follow up Referrals: Cardiology - 2 Weeks with Eric Inman MD Oncology - As Per Protocol with Carlos Sweeney MD PCP Follow-up - 1 Week New Medications: Atorvastatin (Atorvastatin) 40 Mg Tab 40 MG PO HS for Cholesterol Management, #30 TAB Carvedilol (Coreg) 3.125 Mg Tab 6.25 MG PO BID for Blood Pressure Management, #60 TAB Hydromorphone (Dilaudid) 2 Mg Tab 4 MG PO Q4H PRN for BREAKTHROUGH PAIN 6-10, #1 TAB Lisinopril (Lisinopril) 5 Mg Tab 5 MG PO DAILY for Blood Pressure Management, #30 TAB Potassium Chloride Microencaps (Potassium Chloride Microencaps) 20 Meq Tab 40 MEQ PO BID for Electrolyte Replacement, #60 TAB Ticagrelor (Brilinta) 90 Mg Tab 90 MG PO BID for Blood Clot Prevention, #60 TAB Fransisco Rosas MD Dec 19, 2016 08:56
[2016-12-19] MEDS ORDERED: POTASSIUM CHLORIDE 20 MEQ CONTROLLED RELEASE TAB PO SCH (09:00)
[2016-12-19] MEDS: REMOVE OLD PATCH T-DERMAL SCH (09:00)
[2016-12-19] MEDS: LISINOPRIL 5 MG TAB PO SCH (09:21)
[2016-12-19] MEDS: NICOTINE 14 MG/24 HR PATCH T-DERMAL SCH (09:21)
[2016-12-19] MEDS: guaiFENesin E.R. 600 MG TAB PO SCH (09:21)
[2016-12-19] MEDS: SODIUM CHLORIDE 0.9% FLUSH 10 ML FLUSH IV FLUSH SCH (09:21)
[2016-12-19] MEDS: SULFAMETHOXAZOLE-TRIMETHOPRIM DS 800-160 MG TAB PO SCH (09:22)
[2016-12-19] MEDS: TICAGRELOR 90 MG TAB PO SCH (09:22)
[2016-12-19] MEDS: LACTULOSE SYRUP 20 GM/30 ML CUP PO SCH (09:22)
[2016-12-19] MEDS: RIFAMPIN 150 MG CAP PO SCH (09:22)
[2016-12-19] MEDS: ASPIRIN EC 81 MG TABEC PO SCH (09:23)
[2016-12-19] MEDS: CARVEDILOL 3.125 MG TAB PO SCH (09:23)
--- NOTE | 2016-12-19 12:50 | PD.CARD.PN ---
Subjective Subjective Remarks No CP or SOB, feels well Objective Medications Active Medications Potassium Chloride (KCl) 40 meq BID PO Last administered on 12/19/16 09:22; Admin Dose 40 MEQ; Start 12/19/16 at 09:00; Stop 12/19/16 at 11:25; Status DC Potassium Chloride (KCl) 40 meq ONCE ONCE PO Last administered on 12/18/16 15: 04; Admin Dose 40 MEQ; Start 12/18/16 at 14:30; Stop 12/18/16 at 14:31; Status DC Rifampin (Rifampin) 300 mg Q12HR PO Last administered on 12/19/16 09:22; Admin Dose 300 MG; Start 12/18/16 at 15:00; Stop 12/19/16 at 11:25; Status DC Trimethoprim/ Sulfamethoxazole (Bactrim Ds 800-160 Mg) 1 tab Q12HR PO Last administered on 12/19/16 09:22; Admin Dose 1 TAB; Start 12/18/16 at 15:00; Stop 12/19/16 at 11:25; Status DC Vital Signs / I&O Vital Signs Date Time Temp Pulse Resp B/P (MAP) Pulse Ox O2 Delivery O2 Flow Rate FiO2 12/19/16 10:50 18 12/19/16 10:00 74 12/19/16 09:23 96 12/19/16 09:00 68 12/19/16 08:00 64 12/19/16 07:00 98.5 68 20 113/69 (84) 98 12/19/16 07:00 68 12/19/16 06:04 64 12/19/16 05:01 63 12/19/16 04:01 64 12/19/16 03:01 66 18 12/19/16 03:01 64 12/19/16 02:10 72 12/19/16 01:01 67 12/19/16 00:01 68 12/18/16 23:01 98.4 67 18 110/67 (81) 97 12/18/16 23:01 71 12/18/16 22:01 67 12/18/16 21:01 69 12/18/16 20:01 68 12/18/16 19:01 75 12/18/16 19:01 98.7 78 18 100/67 (78) 98 8/30/17 18:01 74 12/18/16 17:00 70 12/18/16 16:00 70 12/18/16 15:01 98.9 70 18 103/65 (78) 98 12/18/16 15:00 70 12/18/16 14:00 76 12/18/16 13:01 74 I/O 12/18/16 12/18/16 12/18/16 12/19/16 12/19/16 12/19/16 07:00 15:00 23:00 07:00 15:00 23:00 Intake Total 1584 ml 750 ml 600 ml 1698 ml Output Total 725 ml 525 ml 400 ml Balance 859 ml 750 ml 75 ml 1298 ml Intake Oral 100 ml 600 ml 480 ml IV Total 1484 ml 750 ml 1218 ml Output Urine Total 725 ml 525 ml 400 ml # Bowel Movements 0 0 Physical Exam GENERAL: In NAD SKIN: Warm and dry. HEAD: Normocephalic. EYES: No scleral icterus. No injection or drainage. NECK: Supple, trachea midline. No JVD or lymphadenopathy. CARDIOVASCULAR: Regular rate and rhythm without murmurs, gallops, or rubs. RESPIRATORY: Breath sounds equal bilaterally. No accessory muscle use. GASTROINTESTINAL: Abdomen soft, non-tender, nondistended. MUSCULOSKELETAL: No cyanosis, or edema. Groin benign Laboratory Laboratory Tests Test 12/19/16 05:46 White Blood Count 9.7 TH/MM3 Red Blood Count 4.17 MIL/MM3 Hemoglobin 11.5 GM/DL Hematocrit 34.5 % Mean Corpuscular Volume 82.7 FL Mean Corpuscular Hemoglobin 27.5 PG Mean Corpuscular Hemoglobin Concent 33.2 % Red Cell Distribution Width 15.3 % Platelet Count 152 TH/MM3 Mean Platelet Volume 10.1 FL Neutrophils (%) (Auto) 69.9 % Lymphocytes (%) (Auto) 18.9 % Monocytes (%) (Auto) 10.3 % Eosinophils (%) (Auto) 0.2 % Basophils (%) (Auto) 0.7 % Neutrophils # (Auto) 6.8 TH/MM3 Lymphocytes # (Auto) 1.8 TH/MM3 Monocytes # (Auto) 1.0 TH/MM3 Eosinophils # (Auto) 0.0 TH/MM3 Basophils # (Auto) 0.1 TH/MM3 CBC Comment DIFF FINAL Differential Comment Blood Urea Nitrogen 21 MG/DL Creatinine 0.68 MG/DL Random Glucose 85 MG/DL Total Protein 6.1 GM/DL Albumin 2.3 GM/DL Calcium Level 8.0 MG/DL Phosphorus Level 0.9 MG/DL Magnesium Level 2.1 MG/DL Alkaline Phosphatase 61 U/L Aspartate Amino Transf (AST/SGOT) 163 U/L Alanine Aminotransferase (ALT/SGPT) 59 U/L Total Bilirubin 0.8 MG/DL Sodium Level 142 MEQ/L Potassium Level 3.4 MEQ/L Chloride Level 109 MEQ/L Carbon Dioxide Level 25.9 MEQ/L Anion Gap 7 MEQ/L Estimat Glomerular Filtration Rate 119 ML/MIN Troponin I GREATER THAN 40.00 NG/ML Assessment and Plan Problem List: (1) Non-ST elevation [place] (NSTEMI) ICD Codes: I21.4 - Non-ST elevation (NSTEMI) myocardial infarction Status: Acute Permanent Comment: 1. Severe multivessel coronary artery disease. 2. Moderate left ventricular dysfunction consistent with ischemic cardiomyopathy. 3. Successful angioplasty and stenting of the mid left anterior descending artery. DISPOSITION Mr. Olivera will be monitored on telemetry after his procedure. We will continue therapy with Brilinta, baby aspirin, beta isabel and TERRI inhibitor. We will initiate aggressive modification of his cardiac risk factors. His overall prognosis is uncertain at this time due to his comorbidities. CATH DONE 12-17 Last Edited By: Jabier Conti on Dec 18, 2016 08:30 (2) CAD (coronary artery disease) ICD Codes: I25.10 - Atherosclerotic heart disease of [place] coronary artery without angina pectoris (3) Stented coronary artery ICD Codes: Z95.5 - Presence of coronary angioplasty implant and graft (4) Hepatitis C ICD Codes: B19.20 - Unspecified viral hepatitis C without hepatic coma Status: Chronic (5) Liver cancer ICD Codes: C22.9 - Malignant neoplasm of liver, not specified as primary or secondary Status: Chronic (6) Tobacco abuse ICD Codes: Z72.0 - Tobacco use Status: Chronic (7) Hypertension ICD Codes: I10 - Essential (primary) hypertension Assessment and Plan Remains stable from cardiac standpoint. No angina or CHF symptoms. Groin stable. Continue Brilinta, baby ASA, carvedilol, lisinopril and atorvastatin. Increase activity. Discharge home today. Will schedule outpt f/u. Eric Inman MD Dec 19, 2016 12:50
== END 2016-12-19 11:22 | disposition home or self-care (01) | DRG 249 ==
LOC: NEPE 15:30 → NEDA 17:18 → HCIS 21:50
PROVIDERS: ADMIT Hospitalist; ATTEND Hospitalist
PROC: 4A023N7 Measurement of Cardiac Sampling and Pressure, Left Heart, Percutaneous Approach (ICD-10-PCS; 2016-12-17)
PROC: B2151ZZ Fluoroscopy of Left Heart using Low Osmolar Contrast (ICD-10-PCS; 2016-12-17)
PROC: B2111ZZ Fluoroscopy of Multiple Coronary Arteries using Low Osmolar Contrast (ICD-10-PCS; 2016-12-17)
PROC: 02703DZ Dilation of Coronary Artery, One Artery with Intraluminal Device, Percutaneous Approach (ICD-10-PCS; principal; 2016-12-17 13:15)
DX: I21.4 Non-ST elevation (NSTEMI) myocardial infarction (principal); I10 Essential (primary) hypertension; L02.412 Cutaneous abscess of left axilla; L02.411 Cutaneous abscess of right axilla; B19.20 Unspecified viral hepatitis C without hepatic coma; Z85.05 Personal history of malignant neoplasm of liver; Z92.3 Personal history of irradiation; E78.5 Hyperlipidemia, unspecified; F41.8 Other specified anxiety disorders; Z86.14 Personal history of Methicillin resistant Staphylococcus aureus infection; Z85.828 Personal history of other malignant neoplasm of skin; F17.210 Nicotine dependence, cigarettes, uncomplicated; I25.10 Atherosclerotic heart disease of native coronary artery without angina pectoris; E87.6 Hypokalemia
CPT/HCPCS: 71020; 80048; 80053; 80061; 82550; 82552; 82948; 83036; 83690; 83735; 84100; 84439; 84443; 84484; 85002; 85025; 85610; 85730; 92928; 93005; 93306; 93458; 96361; 96374; 96375; C1725; C1760; C1769; C1876; C1887; C1893; G0269; J1170; J1644; J2250; J2270; J2405; J3010; J7030; J7040; Q9967

== ENCOUNTER 2017-07-28 06:32 | Day surgery (SDC) | payer MEDICAID ==
[2017-07-28] VITALS (8 sets, daily range): BP systolic 122–149; BP diastolic 27–87; PULSE 50–59; RESP 18; TEMP 97.8–98.2; O2SAT 97–98
[~2017-07-28] VITALS: Ht 167.6 cm; Wt 54.5 kg
[~2017-07-28 06:32] MED LIST changes: -1-ME1LIQ OR; +ATOR40TA16 PO; +BRIL90TA PO; +CARV3.125 PO; -CIPR500T4 PO; +DILA2TAB4 PO; -DILA4TAB10 PO; -HYDR12.56 PO; -LACT20SO4 PO; +LISI-519 PO; +POTA20TA5 PO; -ZOFR4TAB3 SL; -[UNRECOGNIZED DRUG - CODE] PO
[2017-07-28] MEDS ORDERED: SODIUM CHLOR 0.9% 1000 ML IV SCH (07:00)
[2017-07-28] MEDS ORDERED: ASPI-516 CHEW (07:03)
[2017-07-28] MEDS ORDERED: CLON0.1T PO (07:09)
[2017-07-28] MEDS ORDERED: ISOS30TA3 PO (07:09)
[2017-07-28] MEDS ORDERED: fentaNYL CITRATE 250 MCG/5 ML AMP ONE (07:37)
[2017-07-28] MEDS ORDERED: MIDAZOLAM HCL 2 MG/2 ML VIAL ONE (07:37)
[2017-07-28] MEDS ORDERED: LIDOCAINE 1%/EPINEPHrine 1:100,000 SOLN 50 ML VIAL ONE (07:40)
[2017-07-28] MEDS ORDERED: THROMBIN (TOPICAL) 5,000 UNIT VIAL ONE (08:01)
--- NOTE | 2017-07-28 11:01 | RADRPT ---
EXAM DATE/TIME: 07/28/2017 07:58 [facility] COMPARISON: No previous studies available for comparison. INDICATIONS : Lt lung mass SEDATION TIME: 30 minutes BIOPSY SITE: Left lung MEDICATION(S): 1.) 2 mg midazolam (Versed) IV 2.) 250 mcg fentanyl (Sublimaze) IV DEVICE(S): 1.) 18 gauge Kendrick blunt needle 2.) 20 gauge Temno core biopsy needle MEDICAL HISTORY : Carcinoma, hepatocellular. Melanoma SURGICAL HISTORY : Coronary artery stent. ENCOUNTER: Initial ACUITY: 1 day PAIN SCORE: 0/10 LOCATION: Left chest A total of three core specimen(s) were obtained and sent to the laboratory for pathologic evaluation. PROCEDURE: 1. CT guided lung biopsy. Prior to the procedure informed consent was obtained. Any appropriate prior imaging studies were rev iewed. Using automated exposure control and adjustment of the mA and/or kV according to patient size, radiation dose was kept as low as reasonably achievable to obtain optimal diagnostic quality images. DICOM format image data is available electronically for review and comparison. The site was prepped in a sterile fashion. Full sterile technique was used, including cap, mask, surinder rile gloves and gown and a large sterile sheet. Hand hygiene and 2% chlorhexidine and/or betadine/al cohol prep was utilized per protocol for cutaneous antisepsis. The skin and subcutaneous tissues wer e infiltrated with local anesthetic solution. Under CT guidance 18 gauge blunt needle was placed down to the lesion and 3 cores obtained. Tract was embolized with Gelfoam and thrombin. Follow-up CT scan reveals no pneumothorax. Conscious sedation was performed with the prescribed dosages and duration as above in the presence of an independent trained radiology nurse to assist in the monitoring of the patient. EKG and oximetry remained stable throughout the procedure. The patient tolerated the procedure well and there were no complications. The patient was sent to Radiology Outpatient Unit in stable condition. CONCLUSION: Uncomplicated CT guided biopsy of a paravertebral lung mass on the left.. Jabier Rodríguez MD FACR on July 28, 2017 at 10:48 Board Certified Radiologist. This report was verified electronically.
--- NOTE | 2017-07-28 11:19 | RADRPT ---
EXAM DATE/TIME: 07/28/2017 10:42 [facility] COMPARISON: No previous studies available for comparison. INDICATIONS : Post left lung needle biopsy, evaluate for pneumothorax MEDICAL HISTORY : Hypertension. SURGICAL HISTORY : None. ENCOUNTER: Subsequent ACUITY: 1 day PAIN SCORE: 0/10 LOCATION: Left chest FINDINGS: A single frontal expiratory view of the chest was performed. The lungs are symmetrically aerated and clear. No evidence of pneumothorax. Mediastinal structures are in the midline. The cardio-mediastinal contours and bronchopulmonary markings are unremarkable for an expiratory exam . Osseous structures are intact. CONCLUSION: Negative for pneumothorax. Jabier Rodríguez MD FACR on July 28, 2017 at 11:16 Board Certified Radiologist. This report was verified electronically.
== END 2017-07-28 12:45 | disposition home or self-care (01) ==
LOC: HRAD 06:32 → HRIP 06:33 → HRAD 12:45
PROVIDERS: ATTEND Internal Medicine Hematology & Oncology
DX: R91.8 Other nonspecific abnormal finding of lung field (principal); C22.8 Malignant neoplasm of liver, primary, unspecified as to type; I10 Essential (primary) hypertension; Z95.5 Presence of coronary angioplasty implant and graft; Z85.820 Personal history of malignant melanoma of skin
CPT/HCPCS: 32405; 71045; 77012; 87015; 87070; 87102; 87116; 87205; 87206; 88305; 88333; 88341; 88342; 99152; 99153; J2250; J3010; J7030; 99211; G0463

== ENCOUNTER 2017-09-11 08:50 | Inpatient (IN) | payer MEDICAID ==
[2017-09-11] VITALS (13 sets, daily range): BP systolic 144–249; BP diastolic 72–115; PULSE 49–62; RESP 16–18; TEMP 98; O2SAT 98–100
[~2017-09-11] VITALS: Ht 162.6 cm; Wt 42.0 kg
[~2017-09-11 08:50] MED LIST changes: +ASPI-516 CHEW; +CLON0.1T PO; +ISOS30TA3 PO
[2017-09-11] MEDS ORDERED: SODIUM CHLOR 0.9% 1000 ML INJ 1,000 ML IV SCH (09:01)
[2017-09-11] MEDS ORDERED: SODIUM CHLORIDE 0.9% FLUSH 10 ML FLUSH IV FLUSH PRN ×2 (09:15→17:15)
[2017-09-11] MEDS ORDERED: MORPHINE SULFATE 4 MG/ML INJ IV PUSH ONE (09:15)
[2017-09-11 09:40] LABS: AUTOMATED NEUTROPHIL # 5.6 TH/MM3 (1.8-7.7); BASOPHIL % 0.7 % (0.0-2.0); EOSINOPHIL % 0.3 % (0.0-4.0); HEMATOCRIT 43.9 % (39.0-51.0); HEMOGLOBIN 14.2 GM/DL (13.0-17.0); LYMPH % 12.2 % (9.0-44.0); LYMPHOCYTE # 0.8 TH/MM3 (1.0-4.8); MEAN CELL VOLUME 81.5 FL (80.0-100.0); MEAN CORPUSCULAR HEMOGLOBIN 26.5 PG (27.0-34.0); MEAN CORPUSCULAR HGB CONC 32.5 % (32.0-36.0); MEAN PLATELET VOLUME 9.8 FL (7.0-11.0); MONO % 3.4 % (0.0-8.0); MONOCYTE # 0.2 TH/MM3 (0-0.9); NEUT % 83.4 % (16.0-70.0); PLATELET COUNT 220 TH/MM3 (150-450); RED BLOOD COUNT 5.38 MIL/MM3 (4.50-5.90); RED CELL DISTRIBUTION WIDTH 15.6 % (11.6-17.2); WHITE BLOOD COUNT 6.7 TH/MM3 (4.0-11.0)
--- NOTE | 2017-09-11 09:43 | PD ---
HPI Chief Complaint: Abdominal Pain Time Seen by Provider: 09:01 Travel History International Travel<30 days: No Contact w/Intl Traveler<30days: No Traveled to known affect area: No History of Present Illness HPI 62-year-old male patient with history of liver cancer with metastases to lung, skin cancer, multiple medical issues, currently on chemotherapy with Dr. Sweeney, here because he states that he has been vomiting for several days, and has pain all over his body, and is unable to keep his medications including pain medications down. He denies chest pains, shortness of breath, or other issues. Modifying Factors: None Associated Signs & Symptoms: Nausea, vomiting, pain all over the body Risk Factors: On opiate pain medications which he is unable to keep down, cancer history currently on chronic opiate therapy, on chemo PFSH Past Medical History Blood Disorders: No Anxiety: Yes Heart Rhythm Problems: No Cancer: Yes (SKIN AND LIVER CANCER) Cardiac Catheterization: No Cardiovascular Problems: Yes High Cholesterol: Yes Chemotherapy: Yes Congestive Heart Failure: No Diabetes: No Diminished Hearing: No Endocrine: No Genitourinary: No Hepatitis: Yes Hiatal Hernia: No Hypertension: Yes Immune Disorder: No Musculoskeletal: Yes (ARTHRITIS) Neurologic: No Psychiatric: Yes Reproductive: No Respiratory: No Integumentary: Yes (SKIN CANCER ON FACE) Immunizations Current: No Radiation Therapy: Yes (LIVER 10/01/12) Thyroid Disease: No Past Surgical History Abdominal Surgery: No AICD: No Cardiac Surgery: No Coronary Artery Bypass Graft: No Ear Surgery: No Endocrine Surgery: No Eye Surgery: No Genitourinary Surgery: No Gynecologic Surgery: No Joint Replacement: No Oral Surgery: No Pacemaker: No Thoracic Surgery: No Other Surgery: Yes (MRSA, SKIN CANCER X3) Social History Alcohol Use: No Tobacco Use: Yes (1 PPD) Substance Use: Yes (HX OF COCAINE; PT STATES NOT FOR SEVERAL YEARS) Allergies-Medications (Allergen,Severity, Reaction): Coded Allergies: No Known Allergies (Unverified Allergy, Unknown, 07/28/17) Reported Meds & Prescriptions Reported Meds & Active Scripts Active Dilaudid (Hydromorphone HCl) 2 Mg Tab 4 Mg PO Q4H PRN Potassium Chloride Microencaps 20 Meq Tab 40 Meq PO BID Coreg (Carvedilol) 3.125 Mg Tab 6.25 Mg PO BID Lisinopril 5 Mg Tab 5 Mg PO DAILY Atorvastatin (Atorvastatin Calcium) 40 Mg Tab 40 Mg PO HS Brilinta (Ticagrelor) 90 Mg Tab 90 Mg PO BID Reported Isosorbide Mononitrate ER (Isosorbide Mononitrate) 30 Mg Joyce 30 Mg PO DAILY Clonidine (Clonidine HCl) 0.1 Mg Tab 0.1 Mg PO DIRECTED Aspirin 81 Mg Chew 81 Mg CHEW DAILY Review of Systems Except as stated in HPI: all other systems reviewed are Neg Physical Exam Narrative GENERAL: Cachectic elderly white male patient currently and moderate distress. Awake and oriented 3. SKIN: Focused skin assessment warm/dry. HEAD: Atraumatic. Normocephalic. EYES: Pupils equal and round. No scleral icterus. No injection or drainage. ENT: No nasal bleeding or discharge. Mucous membranes are dry. NECK: Trachea midline. No JVD. CARDIOVASCULAR: Regular rate and rhythm. No murmur appreciated. RESPIRATORY: No accessory muscle use. Clear to auscultation. Breath sounds equal bilaterally. GASTROINTESTINAL: Abdomen scaphoid, nontender to palpation without guarding or rebound, nondistended. Hepatic and splenic margins not palpable. MUSCULOSKELETAL: No obvious deformities. No clubbing. No cyanosis. No edema. NEUROLOGICAL: Awake and alert. No obvious cranial nerve deficits. Motor grossly within normal limits. Normal speech. PSYCHIATRIC: Appropriate mood and affect; insight and judgment normal. Data Data Last Documented VS Vital Signs Date Time Temp Pulse Resp B/P (MAP) Pulse Ox O2 Delivery O2 Flow Rate FiO2 09/11/17 09:35 54 16 215/97 (136) 98 Nasal Cannula 2.00 09/11/17 09:00 98.0 Orders Orders Complete Blood Count With Diff (09/11/17 09:01) Comprehensive Metabolic Panel (09/11/17 09:01) Lipase (09/11/17 09:01) Urinalysis - C+S If Indicated (09/11/17 09:01) Iv Access Insert/Monitor (09/11/17 09:01) Ecg Monitoring (09/11/17 09:01) Oximetry (09/11/17 09:01) Morphine Inj (Morphine Inj) (09/11/17 09:15) Sodium Chlor 0.9% 1000 Ml Inj (Ns 1000 M (09/11/17 09:01) Sodium Chloride 0.9% Flush (Ns Flush) (09/11/17 09:15) Electrocardiogram (09/11/17 09:01) Potassium Chlor 20 Meq Premix (Kcl 20 Me (09/11/17 10:45) Calcium Gluconate Inj (Calcium Gluconate (09/11/17 10:45) Magnesium (Mg) (09/11/17 10:32) Hydromorphone Pf Inj (Dilaudid Pf Inj) (09/11/17 10:45) Magnesium Sulfate 1 Gm Premix (Magnesium (09/11/17 11:00) Abdomen, Flat & Upright (09/11/17 11:14) Admit To Inpatient (09/11/17 ) Inpatient Certification (09/11/17 ) Vital Signs (Adult) HELEN.Q4H (09/11/17 11:16) Activity Oob Ad Columba (09/11/17 11:16) Dext 5%-Nacl 0.9% 1... W/Potassium Chlor (09/11/17 11:30) Admit Order (Ed Use Only) (09/11/17 11:16) Labs Laboratory Tests Test 09/11/17 09:10 09/11/17 09:43 White Blood Count 6.7 TH/MM3 Red Blood Count 5.38 MIL/MM3 Hemoglobin 14.2 GM/DL Hematocrit 43.9 % Mean Corpuscular Volume 81.5 FL Mean Corpuscular Hemoglobin 26.5 PG Mean Corpuscular Hemoglobin Concent 32.5 % Red Cell Distribution Width 15.6 % Platelet Count 220 TH/MM3 Mean Platelet Volume 9.8 FL Neutrophils (%) (Auto) 83.4 % Lymphocytes (%) (Auto) 12.2 % Monocytes (%) (Auto) 3.4 % Eosinophils (%) (Auto) 0.3 % Basophils (%) (Auto) 0.7 % Neutrophils # (Auto) 5.6 TH/MM3 Lymphocytes # (Auto) 0.8 TH/MM3 Monocytes # (Auto) 0.2 TH/MM3 Eosinophils # (Auto) 0.0 TH/MM3 Basophils # (Auto) 0.0 TH/MM3 CBC Comment DIFF FINAL Differential Comment Blood Urea Nitrogen 20 MG/DL Creatinine 0.92 MG/DL Random Glucose 105 MG/DL Total Protein 5.8 GM/DL Albumin 2.1 GM/DL Calcium Level 6.2 MG/DL Alkaline Phosphatase 86 U/L Aspartate Amino Transf (AST/SGOT) 62 U/L Alanine Aminotransferase (ALT/SGPT) 47 U/L Total Bilirubin 0.4 MG/DL Sodium Level 146 MEQ/L Potassium Level 2.8 MEQ/L Chloride Level 117 MEQ/L Carbon Dioxide Level 20.9 MEQ/L Anion Gap 8 MEQ/L Estimat Glomerular Filtration Rate 84 ML/MIN Protein Corrected Calcium 6.8 MG/DL Magnesium Level 1.3 MG/DL Lipase 44 U/L Urine Color LIGHT-YELLOW Urine Turbidity CLEAR Urine pH 7.0 Urine Specific [place] 1.008 Urine Protein TRACE mg/dL Urine Glucose (UA) 70 mg/dL Urine Ketones 10 mg/dL Urine Occult Blood NEG Urine Nitrite NEG Urine Bilirubin NEG Urine Urobilinogen LESS THAN 2.0 MG/DL Urine Leukocyte Esterase NEG Urine WBC LESS THAN 1 /hpf Urine Squamous Epithelial Cells <1 /hpf Urine Mucus FEW /lpf Microscopic Urinalysis Comment CULT NOT INDICATED MDM Medical Decision Making Medical Screen Exam Complete: Yes Emergency Medical Condition: Yes Medical Record Reviewed: Yes Interpretation(s) EKG shows sinus bradycardia rate of 50 bpm with LVH. Laboratory Tests Test 09/11/17 09:10 09/11/17 09:43 Mean Corpuscular Hemoglobin 26.5 PG (27.0-34.0) Neutrophils (%) (Auto) 83.4 % (16.0-70.0) Lymphocytes # (Auto) 0.8 TH/MM3 (1.0-4.8) Blood Urea Nitrogen 20 MG/DL (7-18) Total Protein 5.8 GM/DL (6.4-8.2) Albumin 2.1 GM/DL (3.4-5.0) Calcium Level 6.2 MG/DL (8.5-10.1) Aspartate Amino Transf (AST/SGOT) 62 U/L (15-37) Sodium Level 146 MEQ/L (136-145) Potassium Level 2.8 MEQ/L (3.5-5.1) Chloride Level 117 MEQ/L (98-107) Carbon Dioxide Level 20.9 MEQ/L (21.0-32.0) Estimat Glomerular Filtration Rate 84 ML/MIN (>89) Protein Corrected Calcium 6.8 MG/DL (8.5-10.1) Magnesium Level 1.3 MG/DL (1.5-2.5) Lipase 44 U/L (73-393) Urine Glucose (UA) 70 mg/dL (NEG) Urine Ketones 10 mg/dL (NEG) Urine Mucus FEW /lpf (OCC) Differential Diagnosis Nausea, vomiting, pain all over the body: Chemotherapy side effects versus electrolyte abnormalities versus dehydration versus cancer related pain versus opiate withdrawal Narrative Course Lab work shows significant dehydration with low potassium, low magnesium, and low calcium corrected. IV replacement were ordered for all these things as well as IV fluids. At this point, my plan would be to admit the patient for further treatment. Case has been discussed with Dr. Herrera for admission. Diagnosis Primary Impression: Hypomagnesemia Additional Impressions: Hypokalemia Hypocalcemia Dehydration Admitting Information Admitting Physician Requests: Admit Francoise Castillo MD September 11, 2017 09:43
[2017-09-11 09:59] LABS: BILIRUBIN, URINE NEG (NEG); BLOOD, URINE NEG (NEG); GLUCOSE,URINE 70 mg/dL (NEG); KETONE, URINE 10 mg/dL (NEG); MUCUS URINE FEW /lpf (OCC); NITRITE,URINE NEG (NEG); SQUAMOUS EPITHELIAL CELL URINE <1 /hpf (0-5); URINE COLOR LIGHT-YELLOW (YELLW/STRAW); URINE LEUKOCYTE ESTERASE NEG (NEG)
[2017-09-11 09:59] LABS: ALBUMIN 2.1 GM/DL (3.4-5.0); BICARBONATE 20.9 MEQ/L (21.0-32.0); CALCIUM 6.2 MG/DL (8.5-10.1); CREATININE 0.92 MG/DL (0.60-1.30); TOTAL BILIRUBIN ADULT 0.4 MG/DL (0.2-1.0); TOTAL PROTEIN 5.8 GM/DL (6.4-8.2)
[2017-09-11 10:05] LABS: CALCIUM-PROTEIN CORRECTED 6.8 MG/DL (8.5-10.1)
[2017-09-11] MEDS ORDERED: CALCIUM GLUCONATE INJ 2 GM in SODIUM CHLORIDE 0.9% INJ 100 ML IV ONE (10:45)
[2017-09-11] MEDS ORDERED: HYDROmorphone HCL PF 2 MG/ML VIAL IV PUSH ONE ×2 (10:45→12:15)
[2017-09-11] MEDS: POTASSIUM CHLOR 20 MEQ PREMIX 100 ML IV SCH ×2 (10:55→15:25)
[2017-09-11] MEDS: MAGNESIUM SULFATE 1 GM PREMIX 100 ML IV SCH ×2 (12:00→12:40)
[2017-09-11] MEDS: POTASSIUM CHLORIDE INJ 30 MEQ in DEXT 5%-NACL 0.9% 1000 ML INJ 1,000 ML IV SCH (12:01)
--- NOTE | 2017-09-11 12:28 | RADRPT ---
EXAM DATE: 09/11/2017 12:06 PM EDT AGE/SEX: 62 years / Male INDICATIONS: Vomiting with right abdomen pain. CLINICAL DATA: This is the patient's initial encounter. Patient reports that signs and symptoms have been present for 2 days and indicates a pain score of 5/10. MEDICAL/SURGICAL HISTORY: Hypertension. Hypercholesterolemia. Arthritis. Hepatitis. Cirrohosis of liver. Liver, lung, skin cancer. Chemotherapy. Coronary artery stent. COMPARISON: No prior exams available for comparison. FINDINGS: Supine and upright views of the abdomen were performed. The abdominal bowel gas pattern is normal. No air-fluid levels are seen. No abnormal masses, calcifications, or organomegaly is seen. The visualiz ed lower lungs are clear. No evidence of free intraperitoneal gas. There are mild degenerative change s the lumbar spine. CONCLUSION: Benign-appearing abdomen. Electronically signed by: Nomi Bliss MD 09/11/2017 12:26 PM EDT
[2017-09-11] MEDS ORDERED: MAGNESIUM SULFATE 1 GM PREMIX 100 ML IV ONE (16:00)
[2017-09-11] MEDS ORDERED: GLUCAGON 1 MG/ML VIAL OTHER PRN (17:15)
[2017-09-11] MEDS ORDERED: SENNOSIDES 8.6 MG TAB PO PRN (17:15)
[2017-09-11] MEDS ORDERED: NALOXONE HCL 0.4 MG/ML AMP IV PUSH PRN (17:15)
[2017-09-11] MEDS ORDERED: ACETAMINOPHEN 325 MG TAB PO PRN ×2 (17:15)
[2017-09-11] MEDS ORDERED: HYDROmorphone HCL PF 1 MG/ML VIAL IV PUSH PRN (17:15)
[2017-09-11] MEDS ORDERED: MAGNESIUM HYDROXIDE SUSP 30 ML CUP PO PRN (17:15)
[2017-09-11] MEDS ORDERED: BISACODYL 10 MG SUPP RECTAL PRN (17:15)
[2017-09-11] MEDS ORDERED: DEXTROSE 50% IN WATER 50 ML VIAL(D50) IV PUSH PRN (17:15)
[2017-09-11] MEDS ORDERED: LACTULOSE SYRUP 20 GM/30 ML CUP PO PRN (17:15)
[2017-09-11] MEDS ORDERED: HYDROmorphone HCL 2 MG TAB PO PRN (17:15)
[2017-09-11] MEDS ORDERED: ONDANSETRON HCL 4 MG/2 ML VIAL IVP PRN (17:15)
--- NOTE | 2017-09-11 17:22 | HHI.HP ---
[facility] Unknown Admission Diagnosis Dehydration/hypokalemia/hypocalcemia/hypomagnesemia Diagnoses: Chief Complaint: Vomiting Travel History International Travel<30 Days: No Contact w/Intl Traveler <30 Da: No Traveled to Known Affected Are: No History of Present Illness This is a 62-year-old male who presents to the emergency department because of intractable vomiting for 1 day. States he has been vomiting bile unable to keep anything down. He has chronic lower abdominal discomfort which is unchanged. He denies constipation or diarrhea but reports of increased urinary frequency. ER workup shows dehydration with multiple electrolyte abnormalities including hypokalemia hypocalcemia and hypomagnesemia. Abdominal x-ray, urinalysis and lipase unremarkable. He has received IV hydration and replacement of his multiple electrolyte abnormalities. At this time he is feeling better with improved nausea and vomiting. Patient has significant history of multiple cancers including melanoma which was resected, liver cancer status post chemo embolization on sorafenib and newly diagnosed lung cancer for radiation therapy. He also has hepatitis C, coronary artery disease status post recent stent, hypertension, hyperlipidemia and anxiety. All other systems reviewed negative Review of Systems Except as stated in HPI: all other systems reviewed are Neg Past Family Social History Past Medical History As previously mentioned Past Surgical History As previously mentioned Reported Medications Reported Meds & Active Scripts Active Dilaudid (Hydromorphone HCl) 2 Mg Tab 4 Mg PO Q4H PRN Potassium Chloride Microencaps 20 Meq Tab 40 Meq PO BID Coreg (Carvedilol) 3.125 Mg Tab 6.25 Mg PO BID Lisinopril 5 Mg Tab 5 Mg PO DAILY Atorvastatin (Atorvastatin Calcium) 40 Mg Tab 40 Mg PO HS Brilinta (Ticagrelor) 90 Mg Tab 90 Mg PO BID Reported Isosorbide Mononitrate ER (Isosorbide Mononitrate) 30 Mg Joyce 30 Mg PO DAILY Clonidine (Clonidine HCl) 0.1 Mg Tab 0.1 Mg PO DIRECTED Aspirin 81 Mg Chew 81 Mg CHEW DAILY Allergies: Coded Allergies: No Known Allergies (Unverified Allergy, Unknown, 07/28/17) Family History No history of cancer Social History He has cut back on his smoking. Does not drink. History of cocaine abuse Physical Exam Vital Signs Vital Signs Date Time Temp Pulse Resp B/P (MAP) Pulse Ox O2 Delivery O2 Flow Rate FiO2 09/11/17 13:29 60 16 146/79 (101) 98 Nasal Cannula 2.00 09/11/17 12:41 50 16 155/87 (109) 98 Nasal Cannula 2.00 09/11/17 12:00 50 16 234/115 (154) 98 Nasal Cannula 2.00 09/11/17 11:00 62 16 147/72 (97) 98 Nasal Cannula 2.00 09/11/17 09:35 54 16 215/97 (136) 98 Nasal Cannula 2.00 09/11/17 09:00 98.0 54 16 249/112 (157) 98 Physical Exam GENERAL: This is a cachectic, well-developed patient, in no apparent distress. SKIN: Skin cancer on his face HEAD: Atraumatic. Normocephalic. No temporal or scalp tenderness. EYES: Pupils equal round and reactive. Extraocular motions intact. No scleral icterus. No injection or drainage. ENT: Nose without bleeding, purulent drainage or septal hematoma. Throat without erythema, tonsillar hypertrophy or exudate. Uvula midline. Airway patent. NECK: Trachea midline. No JVD or lymphadenopathy. Supple, nontender, no meningeal signs. CARDIOVASCULAR: Regular rate and rhythm without murmurs, gallops, or rubs. RESPIRATORY: Clear to auscultation. Breath sounds equal bilaterally. No wheezes , rales, or rhonchi. GASTROINTESTINAL: Abdomen soft, slightly tender lower abdominal areas, nondistended. No guarding. MUSCULOSKELETAL: Extremities without clubbing, cyanosis, or edema. No joint tenderness, effusion, or edema noted. No calf tenderness. Negative Homans sign bilaterally. NEUROLOGICAL: Awake and alert. Cranial nerves II through XII intact. Motor and sensory grossly within normal limits. Five out of 5 muscle strength in all muscle groups. Normal speech. Laboratory Laboratory Tests Test 09/11/17 09:10 09/11/17 09:43 White Blood Count 6.7 Red Blood Count 5.38 Hemoglobin 14.2 Hematocrit 43.9 Mean Corpuscular Volume 81.5 Mean Corpuscular Hemoglobin 26.5 Mean Corpuscular Hemoglobin Concent 32.5 Red Cell Distribution Width 15.6 Platelet Count 220 Mean Platelet Volume 9.8 Neutrophils (%) (Auto) 83.4 Lymphocytes (%) (Auto) 12.2 Monocytes (%) (Auto) 3.4 Eosinophils (%) (Auto) 0.3 Basophils (%) (Auto) 0.7 Neutrophils # (Auto) 5.6 Lymphocytes # (Auto) 0.8 Monocytes # (Auto) 0.2 Eosinophils # (Auto) 0.0 Basophils # (Auto) 0.0 CBC Comment DIFF FINAL Differential Comment Blood Urea Nitrogen 20 Creatinine 0.92 Random Glucose 105 Total Protein 5.8 Albumin 2.1 Calcium Level 6.2 Alkaline Phosphatase 86 Aspartate Amino Transf (AST/SGOT) 62 Alanine Aminotransferase (ALT/SGPT) 47 Total Bilirubin 0.4 Sodium Level 146 Potassium Level 2.8 Chloride Level 117 Carbon Dioxide Level 20.9 Anion Gap 8 Estimat Glomerular Filtration Rate 84 Protein Corrected Calcium 6.8 Magnesium Level 1.3 Lipase 44 Urine Color LIGHT-YELLOW Urine Turbidity CLEAR Urine pH 7.0 Urine Specific [place] 1.008 Urine Protein TRACE Urine Glucose (UA) 70 Urine Ketones 10 Urine Occult Blood NEG Urine Nitrite NEG Urine Bilirubin NEG Urine Urobilinogen LESS THAN 2.0 Urine Leukocyte Esterase NEG Urine WBC LESS THAN 1 Urine Squamous Epithelial Cells <1 Urine Mucus FEW Microscopic Urinalysis Comment CULT NOT INDICATED Result Diagram: 09/11/17 0910 09/11/17 0910 Imaging Last Impressions Abdomen X-Ray 09/11/17 1114 Signed Impressions: CONCLUSION: Benign-appearing abdomen. Caprini VTE Risk Assessment Caprini VTE Risk Assessment: Mod/High Risk (score >= 2) Caprini Risk Assessment Model Point Value = 1 Point Value = 2 Point Value = 3 Point Value = 5 Age 41-60 Minor surgery BMI > 25 kg/m2 Swollen legs Varicose veins or History of unexplained or recurrent spontaneous Oral contraceptives or hormone replacement Sepsis (< 1 month) Serious lung disease, including pneumonia (< 1 month) Abnormal pulmonary function Acute myocardial infarction Congestive heart failure (< 1 month) History of inflammatory bowel disease Medical patient at bed rest Age 61-74 Arthroscopic surgery Major open surgery (> 45 min) Laparoscopic surgery (> 45 min) Malignancy Confined to bed (> 72 hours) Immobilizing plaster cast Central venous access Age >= 75 History of VTE Family history of VTE Factor V Leiden Prothrombin [id number] Lupus anticoagulant Anticardiolipin antibodies Elevated serum homocysteine Heparin-induced thrombocytopenia Other congenital or acquired thrombophilia Stroke (< 1 month) Elective arthroplasty Hip, pelvis, or leg fracture Acute spinal cord injury (< 1 month) Prophylaxis Regimen Total Risk Factor Score Risk Level Prophylaxis Regimen 0-1 Low Early ambulation 2 Moderate Order ONE of the following: *Sequential Compression Device (SCD) *Heparin 5000 units SQ BID 3-4 Higher Order ONE of the following medications: *Heparin 5000 units SQ TID *Enoxaparin/Lovenox 40 mg SQ daily (WT < 150 kg, CrCl > 30 mL/min) *Enoxaparin/Lovenox 30 mg SQ daily (WT < 150 kg, CrCl > 10-29 mL/min) *Enoxaparin/Lovenox 30 mg SQ BID (WT < 150 kg, CrCl > 30 mL/min) AND/OR *Sequential Compression Device (SCD) 5 or more Highest Order ONE of the following medications: *Heparin 5000 units SQ TID (Preferred with Epidurals) *Enoxaparin/Lovenox 40 mg SQ daily (WT < 150 kg, CrCl > 30 mL/min) *Enoxaparin/Lovenox 30 mg SQ daily (WT < 150 kg, CrCl > 10-29 mL/min) *Enoxaparin/Lovenox 30 mg SQ BID (WT < 150 kg, CrCl > 30 mL/min) AND *Sequential Compression Device (SCD) Assessment and Plan Problem List: (1) Hypokalemia ICD Code: E87.6 - Hypokalemia Status: Acute (2) Hypomagnesemia ICD Code: E83.42 - Hypomagnesemia Status: Acute (3) Hypocalcemia ICD Code: E83.51 - Hypocalcemia Status: Acute Assessment and Plan This is a 62-year-old male who presents to the emergency department because of intractable vomiting for 1 day. States he has been vomiting bile unable to keep anything down. He has chronic lower abdominal discomfort which is unchanged. He denies constipation or diarrhea but reports of increased urinary frequency. ER workup shows dehydration with multiple electrolyte abnormalities including hypokalemia hypocalcemia and hypomagnesemia. Intractable vomiting. Abdominal x-ray negative. Lipase and urinalysis unremarkable. Antiemetics. If persistent obtain head CT. Monitor for hypoglycemia check fingersticks hypoglycemia protocol Dehydration with acidosis and multiple electrolyte abnormalities including hypokalemia, hypocalcemia and hypomagnesemia. He received IV hydration and replacement in the emergency department. Will repeat laboratories in the morning and treat accordingly Multiple cancers including melanoma which was resected, liver cancer status post chemo embolization on sorafenib and newly diagnosed lung cancer for radiation therapy. He also has hepatitis C, coronary artery disease status post recent stent, hypertension, hyperlipidemia and anxiety. Restart home medications as appropriate. Monitor BP closely DVT prophylaxis with SCD and subcu heparin Code Status Full code Discussed Condition With pt Otto Ruiz MD September 11, 2017 17:22
[2017-09-11] MEDS ORDERED: NITR0.4S SL (17:35)
[2017-09-11] MEDS ORDERED: VENL75TA (17:35)
[2017-09-11] MEDS ORDERED: LISI-519 PO (17:35)
[2017-09-11] MEDS ORDERED: PANT40TA3 PO (17:35)
[2017-09-11] MEDS ORDERED: HYDR25TA5 PO (17:35)
[2017-09-11] MEDS ORDERED: ISOS30TA3 PO (17:35)
[2017-09-11] MEDS ORDERED: ALPR0.25 PO (17:35)
[2017-09-11] MEDS ORDERED: AMLO10TA2 PO (17:35)
[2017-09-11] MEDS: HYDROmorphone HCL 2 MG TAB PO PRN ×2 (18:47→23:10)
[2017-09-11] MEDS ORDERED: ONDANSETRON ODT 4 MG TAB PO PRN (19:00)
[2017-09-11] MEDS: POTASSIUM CHLOR 10 MEQ PREMIX 100 ML IV SCH ×3 (19:49→23:11)
[2017-09-11] MEDS: CARVEDILOL 6.25 MG TAB PO SCH (19:49)
[2017-09-11] MEDS: HEPARIN SODIUM - SQ 10,000 UNITS/ML VIAL SQ SCH (19:49)
[2017-09-11] MEDS: DOCUSATE SODIUM 50 MG/SENNA 8.6 MG TAB PO SCH (19:49)
[2017-09-11] MEDS: SODIUM CHLORIDE 0.9% FLUSH 10 ML FLUSH IV FLUSH SCH (19:50)
[2017-09-11] MEDS: POTASSIUM CHLORIDE 20 MEQ CONTROLLED RELEASE TAB PO SCH (19:50)
[2017-09-11] MEDS: TICAGRELOR 90 MG TAB PO SCH (19:57)
[2017-09-11] MEDS ORDERED: ATORVASTATIN 40 MG TAB PO SCH (21:00)
[2017-09-12] MEDS: POTASSIUM CHLORIDE INJ 30 MEQ in DEXT 5%-NACL 0.9% 1000 ML INJ 1,000 ML IV SCH (01:34)
[2017-09-12 02:29] LABS: BICARBONATE 25.8 MEQ/L (21.0-32.0); CREATININE 0.94 MG/DL (0.60-1.30)
[2017-09-12 03:32] VITALS: BP 159/85; PULSE 56; RESP 18; O2SAT 100
[2017-09-12] MEDS: HYDROmorphone HCL 2 MG TAB PO PRN ×2 (03:35→09:12)
[2017-09-12 04:45] LABS: AUTOMATED NEUTROPHIL # 5.6 TH/MM3 (1.8-7.7); BASOPHIL % 0.6 % (0.0-2.0); EOSINOPHIL # 0.1 TH/MM3 (0-0.4); EOSINOPHIL % 0.8 % (0.0-4.0); HEMATOCRIT 42.3 % (39.0-51.0); HEMOGLOBIN 13.5 GM/DL (13.0-17.0); LYMPH % 19.8 % (9.0-44.0); LYMPHOCYTE # 1.6 TH/MM3 (1.0-4.8); MEAN CELL VOLUME 82.3 FL (80.0-100.0); MEAN CORPUSCULAR HEMOGLOBIN 26.3 PG (27.0-34.0); MEAN PLATELET VOLUME 9.9 FL (7.0-11.0); MONO % 8.7 % (0.0-8.0); MONOCYTE # 0.7 TH/MM3 (0-0.9); NEUT % 70.1 % (16.0-70.0); PLATELET COUNT 174 TH/MM3 (150-450); RED BLOOD COUNT 5.14 MIL/MM3 (4.50-5.90); RED CELL DISTRIBUTION WIDTH 15.7 % (11.6-17.2)
[2017-09-12 05:40] LABS: BICARBONATE 24.7 MEQ/L (21.0-32.0); CALCIUM 8.3 MG/DL (8.5-10.1); CREATININE 0.99 MG/DL (0.60-1.30)
[2017-09-12 07:00] VITALS: BP 167/85; PULSE 52; RESP 18; O2SAT 100
--- NOTE | 2017-09-12 07:24 | EKG ---
Date Performed: 09/11/2017 Time Performed: 09:15:34 PTAGE: 62 years EKG: SINUS BRADYCARDIA WITH OCCASIONAL VENTRICULAR PREMATURE COMPLEXES VOLTAGE CRITERIA FOR LVH NONSPECIFIC ST & T-WAVE ABNORMALITY ABNORMAL ECG PREVIOUS TRACING : 12/18/2016 06.35 DOCTOR: Main Carlson Interpretating Date/Time 09/12/2017 07:20:42
[2017-09-12 07:32] VITALS: O2SAT 99
--- NOTE | 2017-09-12 08:27 | PD.CONS ---
History of Present Illness Service Hematology/oncology Consult Requested By The hospitalist service. Reason for Consult Patient with a history of hepatocellular carcinoma, a more recent diagnosis of non-small cell carcinoma of the left lung and numerous nonmelanoma cutaneous carcinomas. Primary Care Physician Unknown Diagnoses: History of Present Illness Chief complaint: "I got dehydrated". Patient reports having had a 3 day history of nausea, vomiting and decreased oral intake. He reports also having had 2 or 3 episodes of loose bowel movements. History of presenting illness: Mr. Olivera is a 62-year-old male who has been under my care since 2012 for a diagnosis of hepatocellular carcinoma. His treatment history is been outlined in detail in my outpatient notes but to summarize; he underwent liver directed therapy with transarterial chemoembolization in the summer 2012 followed by initiation of systemic therapy with Sorafenib which he has been on almost continuously since the summer 2012 with good disease control. The patient has also had numerous cutaneous nonmelanoma skin cancers which have been mostly neglected for many years, the patient just was not able to see a flight simulator teacher reliably due to his lack of insurance up until very recently. He now has been seeing a flight simulator teacher with biopsies of several lesions and recommendation to undergo radiation to the cutaneous lesions on his face. 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 The patient was scheduled to start stereotactic body radiotherapy for management of the localized Squamous cell carcinoma of the left lower lobe of the lung today. He reports developing symptoms of nausea, vomiting abdominal pain and diarrhea about 3 days ago as a result of which she was unable to keep down liquids. The patient thinks this may have been provoked by him trying to overexert himself while at work (he works as a tile helper). The patient reports getting tired and nauseated at work, he reports worsening muscular skeletal aches and pains as well associated with increased exertion and he admits taking more hydromorphone tablets then he was used to. Upon presentation to the emergency department he was noted to have significant electrolyte derangements and was clinically dehydrated. Overnight he has been hydrated and electrolyte derangement/depletion has been managed with replacement therapy. This morning he feels much improved. Review of Systems Constitutional: COMPLAINS OF: Fatigue, Weight loss, DENIES: Diaphoretic episodes, Fever, Weight gain, Chills, Dizziness, Change in appetite, Night Sweats Endocrine: DENIES: Heat/cold intolerance, Polydipsia, Polyuria, Polyphagia Eyes: DENIES: Blurred vision, Diplopia, Eye inflammation, Eye pain, Vision loss , Photosensitivity, Double Vision Ears, nose, mouth, throat: DENIES: Tinnitus, Hearing loss, Vertigo, Nasal discharge, Oral lesions, Throat pain, Hoarseness, Ear Pain, Running Nose, Epistaxis, Sinus Pain, Toothache, Odynophagia Respiratory: COMPLAINS OF: Cough, Shortness of breath, DENIES: Apneas, Snoring , Wheezing, Hemoptysis, Sputum production Cardiovascular: DENIES: Chest pain, Palpitations, Syncope, Dyspnea on Exertion , PND, Lower Extremity Edema, Orthopnea, Claudication Gastrointestinal: COMPLAINS OF: Abdominal pain, Diarrhea, Nausea, Vomiting, Anorexia, DENIES: Black stools, Bloody stools, Constipation, Difficulty Swallowing Genitourinary: DENIES: Sexual dysfunction, Urinary frequency, Urinary incontinence, Urgency, Hematuria, Dysuria, Nocturia, Penile Discharge, Testicular Pain, Testicular Swelling Musculoskeletal: COMPLAINS OF: Joint pain, Muscle aches, Stiffness, Back pain, DENIES: Joint Swelling, Neck pain Integumentary: DENIES: Abnormal pigmentation, Nail changes, Pruritus, Rash Hematologic/lymphatic: DENIES: Bruising, Lymphadenopathy Immunologic/allergic: DENIES: Eczema, Urticaria Neurologic: COMPLAINS OF: Headache, DENIES: Abnormal gait, Localized weakness, Paresthesias, Seizures, Speech Problems, Tremor, Poor Balance Psychiatric: COMPLAINS OF: Anxiety, Depression, DENIES: Confusion, Mood changes , Hallucinations, Agitation, Suicidal Ideation, Homicidal Ideation, Delusions Except as stated in HPI: all other systems reviewed are Neg Past Family Social History Allergies: Coded Allergies: No Known Allergies (Unverified Allergy, Unknown, 07/28/17) Past Medical History Hepatocellular carcinoma (initially diagnosed in 2012) 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 Hepatic cirrhosis History of alcohol abuse History of melanoma of the right upper chest wall. History of myocardial infarction Osteoarthritis Past Surgical History Coronary artery angiogram with stent placement CT-guided adrenal gland biopsy CT-guided liver biopsy Transarterial chemo embolization of liver tumor Multiple skin biopsies Resection of nonmelanoma skin cancers CT-guided lung biopsy Active Ordered Medications D5W with normal saline and sodium chloride Magnesium and potassium replacement protocols Tylenol 650 mg p.o. every 4 hours needed for fever Aspirin 81 mg p.o. daily Atorvastatin 40 mg once daily Coreg 6.25 mg p.o. twice daily Senna Colace 1 tablet p.o. twice daily Heparin 5000 units subcu every 12 hours hydromorphone 2- 4 mg p.o. every 4 hours as needed for pain Isosorbide mononitrate 30 mg p.o. daily Lisinopril 5 mg p.o. daily Zofran 4 mg p.o. every 6 hours as needed for nausea and vomiting Potassium chloride 40 mg p.o. twice daily Senokot 17.2 mg p.o. every 12 hours needed for constipation Brilinta 90 mg p.o. twice daily Family History Mother: ; secondary to complications of diabetes. Father: ; alcoholic, liver cirrhosis. No oncologic diagnoses known in the family. Social History Lives at home with his , he is currently disabled, he was previously a tile helper and continues to work intermittently. Previously was a heavy drinker no longer drinks. Continues to smoke several cigarettes daily. Lavelle had a heavy history of smoking; one pack per day for 35 years. Has no children of his own. Physical Exam Vital Signs Vital Signs Date Time Temp Pulse Resp B/P (MAP) Pulse Ox O2 Delivery O2 Flow Rate FiO2 09/12/17 07:32 99 Nasal Cannula 2.00 09/12/17 03:32 56 18 159/85 (109) 100 Room Air 09/11/17 23:05 53 16 160/75 (103) 100 09/11/17 19:47 60 18 175/81 (112) 100 Nasal Cannula 2.00 09/11/17 19:41 167/74 (105) 09/11/17 19:12 50 18 197/86 (123) 100 Nasal Cannula 2.50 09/11/17 18:32 54 17 183/82 (115) 99 Nasal Cannula 2.00 09/11/17 18:08 100 Nasal Cannula 2.00 09/11/17 15:00 49 144/80 (101) 09/11/17 13:29 60 16 146/79 (101) 98 Nasal Cannula 2.00 09/11/17 12:41 50 16 155/87 (109) 98 Nasal Cannula 2.00 09/11/17 12:00 50 16 234/115 (154) 98 Nasal Cannula 2.00 09/11/17 11:00 62 16 147/72 (97) 98 Nasal Cannula 2.00 09/11/17 09:35 54 16 215/97 (136) 98 Nasal Cannula 2.00 09/11/17 09:00 98.0 54 16 249/112 (157) 98 Physical Exam GENERAL: Chronically ill-appearing middle-aged male, laying in the emergency department [facility], he has significant skin changes involving his facial skin with numerous crusty lesions. Previous biopsy sites and grafts. He is not acutely distressed this morning. SKIN: Extensive sun related damage, numerous crusted lesions noted over his forehead and facial skin. Multiple scars from previous biopsies and grafts. HEAD: Atraumatic. Normocephalic. No temporal or scalp tenderness. EYES: Pupils equal round and reactive. Extraocular motions intact. No scleral icterus. No injection or drainage. ENT: Nose without bleeding, purulent drainage or septal hematoma. Throat without erythema, tonsillar hypertrophy or exudate. Uvula midline. Airway patent. NECK: Trachea midline. No JVD or lymphadenopathy. Supple, nontender, no meningeal signs. CARDIOVASCULAR: Regular rate and rhythm without murmurs, gallops, or rubs. RESPIRATORY: Clear to auscultation. Breath sounds equal bilaterally. No wheezes , rales, or rhonchi. GASTROINTESTINAL: Abdomen soft, non-tender, nondistended. No hepato-splenomegaly , or palpable masses. No guarding. MUSCULOSKELETAL: Extremities without clubbing, cyanosis, or edema. No joint tenderness, effusion, or edema noted. No calf tenderness. Negative Homans sign bilaterally. Generally decreased muscle mass. NEUROLOGICAL: Awake and alert. Cranial nerves II through XII intact. Motor and sensory grossly within normal limits. Five out of 5 muscle strength in all muscle groups. Normal speech. Laboratory Laboratory Tests Test 09/11/17 09:10 09/11/17 09:43 09/12/17 01:35 09/12/17 04:25 White Blood Count 6.7 8.0 Red Blood Count 5.38 5.14 Hemoglobin 14.2 13.5 Hematocrit 43.9 42.3 Mean Corpuscular Volume 81.5 82.3 Mean Corpuscular Hemoglobin 26.5 26.3 Mean Corpuscular Hemoglobin Concent 32.5 32.0 Red Cell Distribution Width 15.6 15.7 Platelet Count 220 174 Mean Platelet Volume 9.8 9.9 Neutrophils (%) (Auto) 83.4 70.1 Lymphocytes (%) (Auto) 12.2 19.8 Monocytes (%) (Auto) 3.4 8.7 Eosinophils (%) (Auto) 0.3 0.8 Basophils (%) (Auto) 0.7 0.6 Neutrophils # (Auto) 5.6 5.6 Lymphocytes # (Auto) 0.8 1.6 Monocytes # (Auto) 0.2 0.7 Eosinophils # (Auto) 0.0 0.1 Basophils # (Auto) 0.0 0.0 CBC Comment DIFF FINAL DIFF FINAL Differential Comment Blood Urea Nitrogen 20 18 19 Creatinine 0.92 0.94 0.99 Random Glucose 105 102 92 Total Protein 5.8 Albumin 2.1 Calcium Level 6.2 8.0 8.3 Alkaline Phosphatase 86 Aspartate Amino Transf (AST/SGOT) 62 Alanine Aminotransferase (ALT/SGPT) 47 Total Bilirubin 0.4 Sodium Level 146 141 142 Potassium Level 2.8 4.3 4.1 Chloride Level 117 108 110 Carbon Dioxide Level 20.9 25.8 24.7 Anion Gap 8 7 7 Estimat Glomerular Filtration Rate 84 82 77 Protein Corrected Calcium 6.8 Magnesium Level 1.3 2.0 Lipase 44 Urine Color LIGHT-YELLOW Urine Turbidity CLEAR Urine pH 7.0 Urine Specific [place] 1.008 Urine Protein TRACE Urine Glucose (UA) 70 Urine Ketones 10 Urine Occult Blood NEG Urine Nitrite NEG Urine Bilirubin NEG Urine Urobilinogen LESS THAN 2.0 Urine Leukocyte Esterase NEG Urine WBC LESS THAN 1 Urine Squamous Epithelial Cells <1 Urine Mucus FEW Microscopic Urinalysis Comment CULT NOT INDICATED Result Diagram: 09/12/17 0425 09/12/17 042 Imaging X-ray abdomen dated 09/11/2017: No acute findings identified. Assessment and Plan Assessment and Plan 62-year-old man with multiple medical comorbid conditions presented to the hospital with 3 day history of nausea, vomiting, abdominal pain and diarrhea. Found to have multiple electrolyte derangements secondary to dehydration and nausea and vomiting. He was treated overnight with IV fluid hydration and electrolyte replacement as well as antiemetic therapy. His symptoms are improved, clinically he is no longer dehydrated and blood work drawn earlier today indicates significant improvement of his electrolyte derangements. From an oncologic standpoint he has a complicated history; He was initially diagnosed with hepatocellular carcinoma in the summer 2012, he had localized disease which was treated well with transarterial chemoembolization, following that he has been on maintenance Sorafenib with relative disease stability. In July of this year he was diagnosed with a poorly differentiated squamous cell carcinoma localized in the left lower lobe of the lung, he was scheduled to start stereotactic body radio therapy for management of this lesion. He has also numerous cutaneous malignancies involving his face and is sequentially undergoing biopsy and resection of these with his flight simulator teacher with whom he follows up whenever the patient has enough money to do so. Plan: 1. 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 2. Hepatocellular carcinoma: Continue Sorafenib 200 mg p.o. once daily; he is unable to tolerate any higher doses. This dose has been sufficient maintaining disease stability for the past almost 5 years. 3. Electrolyte derangements: Now resolved with IV fluid hydration and IV replacement. I have encouraged him to try to maintain hydration in the outpatient setting. 4. Pain control: I counseled the patient taking too many pain medications, his nausea and vomiting may have been related to him overmedicating himself with hydromorphone. Disposition: Clinically this morning he appears to be much improved. He should be clear for discharge at some point today. I would like to see him eat a meal and hold it down before he is discharged. Carlos Sweeney MD September 12, 2017 08:27
[2017-09-12 08:30] VITALS: BP 189/94; PULSE 55; RESP 18; O2SAT 100
[2017-09-12] MEDS ORDERED: LISI10TA3 PO (08:53)
--- NOTE | 2017-09-12 08:53 | HHI.DCPOC ---
Discharge Care Plan Diagnosis: (1) Hypokalemia (2) Hypomagnesemia (3) Hypocalcemia Your Health Problems Are: Difficulty with ADL Exercise Tolerance Goals to Promote Your Health * To prevent worsening of your condition and complications * To maintain your health at the optimal level Directions to Meet Your Goals Take your medications as prescribed Follow your dietary instruction Follow activity as directed Keep your appointments as scheduled Take your immunizations and boosters as scheduled If your symptoms worsen call your PCP, if no PCP go to Urgent Care Center or Emergency Room Smoking is Dangerous to Your Health. Avoid second hand smoke Call the 24-hour hour crisis hotline for domestic abuse at Otto Ruiz MD September 12, 2017 08:53
--- NOTE | 2017-09-12 08:54 | HHI.FF ---
Face to Face Verification Diagnosis: (1) Dehydration (2) Hypokalemia (3) Hypomagnesemia (4) Hypocalcemia Physical Therapy Order: Evaluate and Treat, Improve ambulation, Strength and gait training I have seen patient Adrián Olivera on 09/12/17. My clinical findings support the need for the requested home health care services because: Deconditioned w/ increased weakness I certify that my clinical findings support that this patient is homebound because: Unsafe to leave home unassisted Need for psychosocial assistance Otto Ruiz MD September 12, 2017 08:54
[2017-09-12] MEDS ORDERED: OXYGENDME NAS.CANULA (08:55)
[2017-09-12] MEDS ORDERED: LISINOPRIL 5 MG TAB PO SCH (09:00)
[2017-09-12] MEDS ORDERED: LISINOPRIL 10 MG TAB PO SCH (09:00)
[2017-09-12] MEDS ORDERED: ISOSORBIDE MONONITRATE 30 MG CR TAB (IMDUR) PO SCH ×2 (09:00→10:30)
[2017-09-12] MEDS ORDERED: ASPIRIN 81 MG CHEW TAB CHEW SCH (09:00)
--- NOTE | 2017-09-12 09:00 | HHI.PR ---
Subjective Remarks Follow-up dehydration. He feels much better tolerated clear liquid diet. Likely he developed nausea and vomiting from over use of narcotic patient has been counseled. He wants to go home and get his radiation therapy later today at 4 PM. States his blood pressures have always been uncontrolled. Objective Vitals Vital Signs Date Time Temp Pulse Resp B/P (MAP) Pulse Ox O2 Delivery O2 Flow Rate FiO2 09/12/17 08:30 55 18 189/94 (125) 100 Nasal Cannula 2.00 09/12/17 07:32 99 Nasal Cannula 2.00 09/12/17 03:32 56 18 159/85 (109) 100 Room Air 09/11/17 23:05 53 16 160/75 (103) 100 09/11/17 19:47 60 18 175/81 (112) 100 Nasal Cannula 2.00 09/11/17 19:41 167/74 (105) 09/11/17 19:12 50 18 197/86 (123) 100 Nasal Cannula 2.50 09/11/17 18:32 54 17 183/82 (115) 99 Nasal Cannula 2.00 09/11/17 18:08 100 Nasal Cannula 2.00 09/11/17 15:00 49 144/80 (101) 09/11/17 13:29 60 16 146/79 (101) 98 Nasal Cannula 2.00 09/11/17 12:41 50 16 155/87 (109) 98 Nasal Cannula 2.00 09/11/17 12:00 50 16 234/115 (154) 98 Nasal Cannula 2.00 09/11/17 11:00 62 16 147/72 (97) 98 Nasal Cannula 2.00 09/11/17 09:35 54 16 215/97 (136) 98 Nasal Cannula 2.00 09/11/17 09:00 98.0 54 16 249/112 (157) 98 I/O 09/11/17 09/11/17 09/11/17 09/12/17 09/12/17 09/12/17 07:00 15:00 23:00 07:00 15:00 23:00 Intake Total 1420 ml 1215 ml Balance 1420 ml 1215 ml Intake IV Total 1420 ml 1215 ml Result Diagram: 09/12/17 0425 09/12/17 0425 Imaging Last Impressions Abdomen X-Ray 09/11/17 1114 Signed Impressions: CONCLUSION: Benign-appearing abdomen. Objective Remarks GENERAL: This is a cachectic, well-developed patient, in no apparent distress. SKIN: Skin cancer on his face CARDIOVASCULAR: Regular rate and rhythm without murmurs, gallops, or rubs. RESPIRATORY: Clear to auscultation. Breath sounds equal bilaterally. No wheezes , rales, or rhonchi. GASTROINTESTINAL: Abdomen soft, nontender, nondistended. No guarding. MUSCULOSKELETAL: Extremities without clubbing, cyanosis, or edema. No joint tenderness, effusion, or edema noted. No calf tenderness. Negative Homans sign bilaterally. NEUROLOGICAL: Awake and alert. Cranial nerves II through XII intact. Motor and sensory grossly within normal limits. Five out of 5 muscle strength in all muscle groups. Normal speech. Procedures none A/P Problem List: (1) Hypokalemia ICD Code: E87.6 - Hypokalemia Status: Acute (2) Hypomagnesemia ICD Code: E83.42 - Hypomagnesemia Status: Acute (3) Hypocalcemia ICD Code: E83.51 - Hypocalcemia Status: Acute Assessment and Plan This is a 62-year-old male who presents to the emergency department because of intractable vomiting for 1 day. States he has been vomiting bile unable to keep anything down. He has chronic lower abdominal discomfort which is unchanged. He denies constipation or diarrhea but reports of increased urinary frequency. ER workup shows dehydration with multiple electrolyte abnormalities including hypokalemia hypocalcemia and hypomagnesemia. Intractable vomiting from narcotic use. Abdominal x-ray negative. Lipase and urinalysis unremarkable. Improved. Patient has been counseled regarding narcotic use. Antiemetics. Advance diet if tolerated DC home Dehydration with acidosis and multiple electrolyte abnormalities including hypokalemia, hypocalcemia and hypomagnesemia. He received IV hydration and replacement in the emergency department. Resolved will discontinue IV hydration Uncontrolled hypertension. Increase lisinopril to 10 g twice a day and restart all home medications. Monitor multiple cancers including melanoma which was resected, liver cancer status post chemo embolization on sorafenib and newly diagnosed lung cancer for radiation therapy. He also has hepatitis C, coronary artery disease status post recent stent, hyperlipidemia and anxiety. Restart home medications as appropriate. DVT prophylaxis with SCD and subcu heparin Wean and discontinue oxygen. Oxygen walk test. Physical therapy evaluation Discharge Planning Discharge patient to home Condition on discharge: Improved significantly earlier than anticipated Regular Diet as tolerated Ad [place]a activity Rx written: Lisinopril Follow-up with primary care physician, medical and radiation oncology Otto Ruiz MD September 12, 2017 09:00
[2017-09-12] MEDS: POTASSIUM CHLORIDE 20 MEQ CONTROLLED RELEASE TAB PO SCH (09:09)
[2017-09-12] MEDS: TICAGRELOR 90 MG TAB PO SCH (09:10)
[2017-09-12] MEDS: DOCUSATE SODIUM 50 MG/SENNA 8.6 MG TAB PO SCH (09:10)
[2017-09-12] MEDS: CARVEDILOL 6.25 MG TAB PO SCH (09:11)
[2017-09-12] MEDS: HEPARIN SODIUM - SQ 10,000 UNITS/ML VIAL SQ SCH (09:12)
[2017-09-12] MEDS: SODIUM CHLORIDE 0.9% FLUSH 10 ML FLUSH IV FLUSH SCH (09:13)
[2017-09-12] MEDS ORDERED: PANTOPRAZOLE SOD 40 MG DELAYED RELEASE TAB PO SCH (10:30)
[2017-09-12] MEDS ORDERED: ALPRAZolam 0.25 MG TAB PO PRN (10:30)
[2017-09-12] MEDS ORDERED: VENLAFAXINE HCL XR 75 MG CAP PO SCH (10:30)
[2017-09-12] MEDS ORDERED: NITROGLYCERIN 0.4 MG SL 25 TABS/BTL SL PRN (10:30)
[2017-09-12 12:30] VITALS: BP 125/79; PULSE 70; RESP 18; O2SAT 99
== END 2017-09-12 15:18 | disposition home or self-care (01) | DRG 641 ==
LOC: NEPE 08:50 → NEDA 11:20 → NEDH 19:53
PROVIDERS: ADMIT Internal Medicine; ATTEND Internal Medicine
DX: E86.0 Dehydration (principal); R64 Cachexia; Z68.1 Body mass index [BMI] 19.9 or less, adult; E87.6 Hypokalemia; E83.51 Hypocalcemia; E83.42 Hypomagnesemia; T40.605A Adverse effect of unspecified narcotics, initial encounter; R11.2 Nausea with vomiting, unspecified; Z85.118 Personal history of other malignant neoplasm of bronchus and lung; Z85.820 Personal history of malignant melanoma of skin; Z92.21 Personal history of antineoplastic chemotherapy; Z85.05 Personal history of malignant neoplasm of liver; I25.10 Atherosclerotic heart disease of native coronary artery without angina pectoris; Z95.5 Presence of coronary angioplasty implant and graft; B19.20 Unspecified viral hepatitis C without hepatic coma; F17.210 Nicotine dependence, cigarettes, uncomplicated
CPT/HCPCS: 74019; 80048; 80053; 81001; 83690; 83735; 85025; 93005; 94618; 96361; 96365; 96375; J0610; J1170; J1644; J2270; J3475; J3480; J7030; J7042

== ENCOUNTER 2017-10-01 13:46 | Emergency (ER) | payer MEDICAID ==
[~2017-10-01] VITALS: Ht 167.6 cm; Wt 50.0 kg
[~2017-10-01 13:46] MED LIST changes: +ALPR0.25 PO; +AMLO10TA2 PO; +HYDR25TA5 PO; -LISI-519 PO; +LISI10TA3 PO; +NITR0.4S SL; +OXYGENDME NAS.CANULA; +PANT40TA3 PO; +VENL75TA
[2017-10-01 13:55] VITALS: BP 126/97; PULSE 91; RESP 20; O2SAT 100
[2017-10-01 13:58] VITALS: PULSE 85; RESP 17; TEMP 98; O2SAT 100
[2017-10-01] MEDS ORDERED: VENL75XR PO (14:11)
[2017-10-01] MEDS ORDERED: SODIUM CHLORIDE 0.9% FLUSH 10 ML FLUSH IVF PRN (14:15)
[2017-10-01] MEDS ORDERED: SODIUM CHLORID 0.9% 500 ML INJ 500 ML IV ONE (14:15)
--- NOTE | 2017-10-01 14:15 | PD ---
HPI Chief Complaint: Syncope/Near-Syncope Time Seen by Provider: 13:50 Travel History International Travel<30 days: No Contact w/Intl Traveler<30days: No Traveled to known affect area: No History of Present Illness HPI 62 y/o male presents stating he has had multiple syncopal events. Triage staff states that in the waiting room he had an episode where he fell out of a chair but he did not hit his head and he was brought straight back. He denies specific pain after the fall other than where he always hurts over his cancer area. He states Dr. Sweeney is his oncologist and he last got chemotherapy 1 week ago. He cannot quantify the number of times he has passed out. He states he remembers having one here but other than that he states he is unsure how many. He denies specific modifying factors other than movement. History is limited from patient. 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) Immunizations Current: No Radiation Therapy: Yes (hx liver, lung radiation last week) Thyroid Disease: No Tetanus Vaccination: < 5 Years Past Surgical History Abdominal Surgery: No AICD: No Cardiac Surgery: No Coronary Artery Bypass Graft: No Ear Surgery: No Endocrine Surgery: No Eye Surgery: No Genitourinary Surgery: No Gynecologic Surgery: No Joint Replacement: No Oral Surgery: No Pacemaker: No Thoracic Surgery: No Other Surgery: Yes (3 skin ca removed) Social History Alcohol Use: No Tobacco Use: Yes (1 PPD) Substance Use: Yes (PT STATES NOT FOR SEVERAL YEARS) Allergies-Medications (Allergen,Severity, Reaction): Coded Allergies: No Known Allergies (Unverified Allergy, Unknown, 07/28/17) Reported Meds & Prescriptions Reported Meds & Active Scripts Active Oxygen (O2) Device Liter MIRNA.CANULA CONTINUOUS Oxygen Concentrator Portable Gaseous 2 L/min via Nasal Canula Continuous For 99 months Dilaudid (Hydromorphone HCl) 2 Mg Tab 4 Mg PO Q4H PRN Potassium Chloride Microencaps 20 Meq Tab 40 Meq PO BID Coreg (Carvedilol) 3.125 Mg Tab 6.25 Mg PO BID Atorvastatin (Atorvastatin Calcium) 40 Mg Tab 40 Mg PO HS Brilinta (Ticagrelor) 90 Mg Tab 90 Mg PO BID Reported Effexor XR 24 HR (Venlafaxine HCl) 75 Mg Cap 75 Mg PO DAILY Nitrostat SL (Nitroglycerin) 0.4 Mg Subl 0.4 Mg SL DIRECTED PRN 1 tablet under the tongue as needed for chest pain. Repeat every 5 minutes for a total of 3 DOSES or call 911 if NO relief. Amlodipine (Amlodipine Besylate) 10 Mg Tab 10 Mg PO DAILY Pantoprazole (Pantoprazole Sodium) 40 Mg Tab 40 Mg PO DAILY Alprazolam 0.25 Mg Tab 0.25 Mg PO Q4H PRN Clonidine (Clonidine HCl) 0.1 Mg Tab 0.1 Mg PO DAILY Aspirin 81 Mg Chew 81 Mg CHEW DAILY Review of Systems Except as stated in HPI: all other systems reviewed are Neg Physical Exam Narrative GENERAL: 62-year-old male in no apparent distress, thin SKIN: Focused skin assessment warm/dry. HEAD: Normocephalic. EYES: Pupils equal and round. No injection or drainage. ENT: No nasal bleeding or discharge. Mucous membranes pink and moist. NECK: Trachea midline CARDIOVASCULAR: Regular rate and rhythm. RESPIRATORY: No accessory muscle use. Clear to auscultation. Breath sounds equal bilaterally. GASTROINTESTINAL: Abdomen soft, non-tender, nondistended. MUSCULOSKELETAL: No obvious deformities. No clubbing. No cyanosis. NEUROLOGICAL: Awake and alert. Moves all extremities. Normal speech. Data Data Last Documented VS Vital Signs Date Time Temp Pulse Resp B/P (MAP) Pulse Ox O2 Delivery O2 Flow Rate FiO2 10/01/17 13:58 98.0 85 17 100 Room Air 10/01/17 13:55 126/97 (107) Orders Orders Electrocardiogram (10/01/17 14:04) Complete Blood Count With Diff (10/01/17 14:04) Comprehensive Metabolic Panel (10/01/17 14:04) Magnesium (Mg) (10/01/17 14:04) B-Type Natriuretic Peptide (10/01/17 14:04) Ckmb (Isoenzyme) Profile (10/01/17 14:04) Troponin I (10/01/17 14:04) Act Partial Throm Time (Ptt) (10/01/17 14:04) Prothrombin Time / Inr (Pt) (10/01/17 14:04) Chest, Single Ap (10/01/17 14:04) Ct Brain W/O Iv Contrast(Rout) (10/01/17 14:04) Ecg Monitoring (10/01/17 14:04) Iv Access Insert/Monitor (10/01/17 14:04) Oximetry (10/01/17 14:04) Sodium Chloride 0.9% Flush (Ns Flush) (10/01/17 14:15) Ct Pulmonary Angiogram (10/01/17 ) Sodium Chlorid 0.9% 500 Ml Inj (Ns 500 M (10/01/17 14:15) Lactic Acid (10/01/17 14:04) Urinalysis - C+S If Indicated (10/01/17 14:04) Morphine Inj (Morphine Inj) (10/01/17 15:00) Morphine Inj (Morphine Inj) (10/01/17 15:08) CKMB (10/01/17 14:10) CKMB% (10/01/17 14:10) Labs Laboratory Tests Test 10/01/17 14:10 10/01/17 14:35 10/01/17 15:00 Prothrombin Time 10.0 SEC Prothromb Time International Ratio 1.0 RATIO Activated Partial Thromboplast Time 21.8 SEC Blood Urea Nitrogen 20 MG/DL Creatinine 1.13 MG/DL Random Glucose 78 MG/DL Total Protein 9.0 GM/DL Albumin 3.2 GM/DL Calcium Level 8.9 MG/DL Magnesium Level 2.1 MG/DL Alkaline Phosphatase 115 U/L Aspartate Amino Transf (AST/SGOT) 141 U/L Alanine Aminotransferase (ALT/SGPT) 94 U/L Total Bilirubin 0.5 MG/DL Sodium Level 138 MEQ/L Potassium Level 5.2 MEQ/L Chloride Level 104 MEQ/L Carbon Dioxide Level 26.9 MEQ/L Anion Gap 7 MEQ/L Estimat Glomerular Filtration Rate 66 ML/MIN Lactic Acid Level 2.3 mmol/L Total Creatine Kinase 137 U/L Troponin I LESS THAN 0.02 NG/ML B-Type Natriuretic Peptide 260 PG/ML Urine Color YELLOW Urine Turbidity CLEAR Urine pH 8.0 Urine Specific [place] 1.012 Urine Protein NEG mg/dL Urine Glucose (UA) NEG mg/dL Urine Ketones NEG mg/dL Urine Occult Blood NEG Urine Nitrite NEG Urine Bilirubin NEG Urine Urobilinogen LESS THAN 2.0 MG/DL Urine Leukocyte Esterase NEG Urine RBC LESS THAN 1 /hpf Urine WBC 1 /hpf Urine Mucus FEW /lpf Microscopic Urinalysis Comment CULT NOT INDICATED White Blood Count 8.2 TH/MM3 Red Blood Count 5.67 MIL/MM3 Hemoglobin 15.5 GM/DL Hematocrit 45.6 % Mean Corpuscular Volume 80.5 FL Mean Corpuscular Hemoglobin 27.4 PG Mean Corpuscular Hemoglobin Concent 34.0 % Red Cell Distribution Width 16.4 % Platelet Count 239 TH/MM3 Mean Platelet Volume 9.3 FL Neutrophils (%) (Auto) 44.9 % Lymphocytes (%) (Auto) 41.4 % Monocytes (%) (Auto) 11.9 % Eosinophils (%) (Auto) 0.8 % Basophils (%) (Auto) 1.0 % Neutrophils # (Auto) 3.7 TH/MM3 Lymphocytes # (Auto) 3.4 TH/MM3 Monocytes # (Auto) 1.0 TH/MM3 Eosinophils # (Auto) 0.1 TH/MM3 Basophils # (Auto) 0.1 TH/MM3 CBC Comment DIFF FINAL Differential Comment MDM Medical Decision Making Medical Screen Exam Complete: Yes Emergency Medical Condition: Yes Medical Record Reviewed: Yes (Past history confirmed, recent hospitalization noted) Differential Diagnosis PE, anemia, cardiac, vasovagal, renal failure, electrolyte abnormality Narrative Course Will check blood work, imaging and dose with IV fluids and monitor 1539 patient states he is leaving, offered to contact someone to help assist with his care and explained how limited workup already reveals possible infection in his bloodstream but he states he cannot stay anymore and he is leaving AMA: The risks of leaving against medical advice without further evaluation treatment were discussed with the patient. These risks include cardiac dysfunction, cardiac dysrhythmia, possible heart attack, possible stroke or . The patient indicated understanding of these risks and appeared to have the capacity to make this decision. Diagnosis Primary Impression: Syncope Qualified Codes: R55 - Syncope and collapse Additional Impression: Lactic acidosis Disposition: 07 AGAINST MEDICAL ADVICE Condition: Bettye Marx MD Oct 01, 2017 14:15
--- NOTE | 2017-10-01 14:34 | RADRPT ---
EXAM DATE: 10/01/2017 2:29 PM EDT AGE/SEX: 62 years / Male INDICATIONS: Short of breath, dizzy CLINICAL DATA: This is the patient's initial encounter. Patient reports that signs and symptoms have been present for 3 days and indicates a pain score of 0/10. MEDICAL/SURGICAL HISTORY: Carcinoma, lung. . chemo therapy pill for lung cancer COMPARISON: [facility] [place], CHEST SINGLE AP, 12/11/2011. . FINDINGS: A single AP view of the chest demonstrates the lungs to be symmetrically aerated without evidence of mass, infiltrate or effusion. The cardiomediastinal contours are unremarkable. Osseous structures a re intact. CONCLUSION: Negative for acute process Electronically signed by: Jabier Rodríguez MD 10/01/2017 2:32 PM EDT
[2017-10-01] MEDS ORDERED: MORPHINE SULFATE 4 MG/ML INJ IV PUSH ONE (15:00)
[2017-10-01 15:02] LABS: BILIRUBIN, URINE NEG (NEG); BLOOD, URINE NEG (NEG); GLUCOSE,URINE NEG (NEG); KETONE, URINE NEG (NEG); MUCUS URINE FEW /lpf (OCC); NITRITE,URINE NEG (NEG); URINE COLOR YELLOW (YELLW/STRAW); URINE LEUKOCYTE ESTERASE NEG (NEG)
[2017-10-01] MEDS ORDERED: MORPHINE SULFATE 4 MG/ML INJ ONE (15:08)
[2017-10-01 15:40] LABS: ALBUMIN 3.2 GM/DL (3.4-5.0); ALKALINE PHOSPHATASE 115 U/L (45-117); ALT (GPT) 94 U/L (12-78); AST (GOT) 141 U/L (15-37); BICARBONATE 26.9 MEQ/L (21.0-32.0); BLOOD UREA NITROGEN 20 MG/DL (7-18); CALCIUM 8.9 MG/DL (8.5-10.1); CHLORIDE 104 MEQ/L (98-107); CREATININE 1.13 MG/DL (0.60-1.30); GLOMERULAR FILTRATION RATE 66 ML/MIN (>89); GLUCOSE,RANDOM 78 MG/DL (74-106); MAGNESIUM 2.1 MG/DL (1.5-2.5); SODIUM (NA) 138 MEQ/L (136-145); TOTAL BILIRUBIN ADULT 0.5 MG/DL (0.2-1.0); TROPONIN I LESS THAN 0.02 NG/ML (0.02-0.05)
[2017-10-01 15:46] LABS: AUTOMATED NEUTROPHIL # 3.7 TH/MM3 (1.8-7.7); BASOPHIL # 0.1 TH/MM3 (0-0.2); EOSINOPHIL # 0.1 TH/MM3 (0-0.4); EOSINOPHIL % 0.8 % (0.0-4.0); HEMATOCRIT 45.6 % (39.0-51.0); HEMOGLOBIN 15.5 GM/DL (13.0-17.0); LYMPH % 41.4 % (9.0-44.0); LYMPHOCYTE # 3.4 TH/MM3 (1.0-4.8); MEAN CELL VOLUME 80.5 FL (80.0-100.0); MEAN CORPUSCULAR HEMOGLOBIN 27.4 PG (27.0-34.0); MEAN PLATELET VOLUME 9.3 FL (7.0-11.0); MONO % 11.9 % (0.0-8.0); NEUT % 44.9 % (16.0-70.0); PLATELET COUNT 239 TH/MM3 (150-450); RED BLOOD COUNT 5.67 MIL/MM3 (4.50-5.90); RED CELL DISTRIBUTION WIDTH 16.4 % (11.6-17.2); WHITE BLOOD COUNT 8.2 TH/MM3 (4.0-11.0)
--- NOTE | 2017-10-02 19:13 | EKG ---
Date Performed: 10/01/2017 Time Performed: 12:54:13 PTAGE: 62 years EKG: Sinus rhythm WITH OCCASIONAL VENTRICULAR PREMATURE COMPLEXES LEFT VENTRICULAR HYPERTROPHY AND ST-T CHANGE ABNORMA L ECG Since the PREVIOUS TRACING , no significant change noted PREVIOUS TRACIN09/11/2017 @09.15 DOCTOR: Jaja Castillo Interpretating Date/Time 10/02/2017 19:12:10
== END 2017-10-01 18:10 | disposition left against medical advice (07) ==
LOC: NEPE 13:46
DX: R55 Syncope and collapse (principal); Z53.21 Procedure and treatment not carried out due to patient leaving prior to being seen by health care provider; E87.2 Acidosis; I10 Essential (primary) hypertension; R94.31 Abnormal electrocardiogram [ECG] [EKG]; J44.9 Chronic obstructive pulmonary disease, unspecified; W07.XXXA Fall from chair, initial encounter; Z72.0 Tobacco use; Z79.899 Other long term (current) drug therapy
CPT/HCPCS: 71045; 80053; 81001; 82550; 82552; 83605; 83735; 83880; 84484; 85025; 85610; 85730; 93005; 96374; 99285; J2270; J7040

== ENCOUNTER 2017-10-02 12:08 | Emergency (ER) | payer MEDICAID ==
[~2017-10-02] VITALS: Ht 167.6 cm; Wt 52.0 kg
[~2017-10-02 12:08] MED LIST changes: -HYDR25TA5 PO; -ISOS30TA3 PO; -LISI10TA3 PO; -VENL75TA; +VENL75XR PO
[2017-10-02 12:42] VITALS: BP 116/73; PULSE 66; RESP 18; TEMP 98.4; O2SAT 98
--- NOTE | 2017-10-02 13:14 | PD ---
HPI Chief Complaint: Respiratory Symptoms Time Seen by Provider: 13:01 Travel History International Travel<30 days: No Contact w/Intl Traveler<30days: No Traveled to known affect area: No History of Present Illness HPI This is a 62-year-old male who has a history of hepatocellular carcinoma who presents to the emergency department with generalized weakness. Yesterday he was seen because he had an episode of syncope. He was seen by Dr. Das who told him his blood work was concerning for possible bloodstream infection upon him leaving AGAINST MEDICAL ADVICE. Patient returns to the emergency department today to be rechecked. He says he has not passed out since the episode yesterday but he is feeling generally weak, constant, moderate severity and has pain all over his body. He takes oral chemotherapy and is getting radiation treatments for his hepatocellular cancer. 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) Immunizations Current: No Radiation Therapy: Yes (hx liver, lung radiation last week) Thyroid Disease: No Past Surgical History Abdominal Surgery: No AICD: No Cardiac Surgery: No Coronary Artery Bypass Graft: No Ear Surgery: No Endocrine Surgery: No Eye Surgery: No Genitourinary Surgery: No Gynecologic Surgery: No Joint Replacement: No Oral Surgery: No Pacemaker: No Thoracic Surgery: No Other Surgery: Yes (3 skin ca removed) Social History Alcohol Use: No Tobacco Use: Yes (1 PPD) Substance Use: Yes (PT STATES NOT FOR SEVERAL YEARS) Allergies-Medications (Allergen,Severity, Reaction): Coded Allergies: No Known Allergies (Unverified Allergy, Unknown, 10/02/17) Reported Meds & Prescriptions Reported Meds & Active Scripts Active Oxygen (O2) Device Liter MIRNA.CANULA CONTINUOUS Oxygen Concentrator Portable Gaseous 2 L/min via Nasal Canula Continuous For 99 months Dilaudid (Hydromorphone HCl) 2 Mg Tab 4 Mg PO Q4H PRN Potassium Chloride Microencaps 20 Meq Tab 40 Meq PO BID Coreg (Carvedilol) 3.125 Mg Tab 6.25 Mg PO BID Atorvastatin (Atorvastatin Calcium) 40 Mg Tab 40 Mg PO HS Brilinta (Ticagrelor) 90 Mg Tab 90 Mg PO BID Reported Effexor XR 24 HR (Venlafaxine HCl) 75 Mg Cap 75 Mg PO DAILY Nitrostat SL (Nitroglycerin) 0.4 Mg Subl 0.4 Mg SL DIRECTED PRN 1 tablet under the tongue as needed for chest pain. Repeat every 5 minutes for a total of 3 DOSES or call 911 if NO relief. Amlodipine (Amlodipine Besylate) 10 Mg Tab 10 Mg PO DAILY Pantoprazole (Pantoprazole Sodium) 40 Mg Tab 40 Mg PO DAILY Alprazolam 0.25 Mg Tab 0.25 Mg PO Q4H PRN Clonidine (Clonidine HCl) 0.1 Mg Tab 0.1 Mg PO DAILY Aspirin 81 Mg Chew 81 Mg CHEW DAILY Review of Systems Except as stated in HPI: all other systems reviewed are Neg Physical Exam Narrative GENERAL: Cachectic, chronically ill-appearing SKIN: Focused skin assessment warm and dry. HEAD: Atraumatic. Normocephalic. EYES: Pupils equal and round. No injection or drainage. ENT: Dry mucous membranes. NECK: Trachea midline. CARDIOVASCULAR: Regular rate and rhythm. No murmur appreciated. RESPIRATORY: Clear to auscultation. Breath sounds equal bilaterally. GASTROINTESTINAL: Abdomen soft, non-tender, nondistended. MUSCULOSKELETAL: No obvious deformities. NEUROLOGICAL: Awake and alert. No obvious cranial nerve deficits. Moving all extremities. PSYCHIATRIC: Appropriate mood and affect; insight and judgment normal. Data Data Last Documented VS Vital Signs Date Time Temp Pulse Resp B/P (MAP) Pulse Ox O2 Delivery O2 Flow Rate FiO2 10/02/17 12:42 98.4 66 18 116/73 (87) 98 Orders Orders Complete Blood Count With Diff (10/02/17 13:08) ^ Insert Iv (10/02/17 13:08) Basic Metabolic Panel (Bmp) (10/02/17 13:08) Troponin I (10/02/17 13:08) Sodium Chlor 0.9% 1000 Ml Inj (Ns 1000 M (10/02/17 13:15) Hydromorphone Pf Inj (Dilaudid Pf Inj) (10/02/17 13:15) Ed Discharge Order (10/02/17 14:55) Labs Laboratory Tests Test 10/02/17 13:21 White Blood Count 10.1 TH/MM3 Red Blood Count 5.11 MIL/MM3 Hemoglobin 13.5 GM/DL Hematocrit 41.7 % Mean Corpuscular Volume 81.5 FL Mean Corpuscular Hemoglobin 26.4 PG Mean Corpuscular Hemoglobin Concent 32.3 % Red Cell Distribution Width 16.1 % Platelet Count 231 TH/MM3 Mean Platelet Volume 9.5 FL Neutrophils (%) (Auto) 36.0 % Lymphocytes (%) (Auto) 52.5 % Monocytes (%) (Auto) 10.2 % Eosinophils (%) (Auto) 0.7 % Basophils (%) (Auto) 0.6 % Neutrophils # (Auto) 3.6 TH/MM3 Lymphocytes # (Auto) 5.3 TH/MM3 Monocytes # (Auto) 1.0 TH/MM3 Eosinophils # (Auto) 0.1 TH/MM3 Basophils # (Auto) 0.1 TH/MM3 CBC Comment AUTO DIFF Differential Total Cells Counted 100 Neutrophils % (Manual) 39 % Band Neutrophils % 2 % Lymphocytes % 40 % Monocytes % 7 % Basophils % 2 % Neutrophils # (Manual) 4.1 TH/MM3 Differential Comment FINAL DIFF MANUAL Atypical Lymphocytes 10 % Platelet Estimate NORMAL Platelet Morphology Comment NORMAL Red Cell Morphology Comment NORMAL Blood Urea Nitrogen 28 MG/DL Creatinine 1.08 MG/DL Random Glucose 72 MG/DL Calcium Level 8.9 MG/DL Sodium Level 140 MEQ/L Potassium Level 4.9 MEQ/L Chloride Level 107 MEQ/L Carbon Dioxide Level 24.2 MEQ/L Anion Gap 9 MEQ/L Estimat Glomerular Filtration Rate 70 ML/MIN Troponin I LESS THAN 0.02 NG/ML [facility] Medical Decision Making Medical Screen Exam Complete: Yes Emergency Medical Condition: Yes Interpretation(s) Afebrile, no tachycardia, normotensive No leukocytosis BUN is slightly elevated Troponin is normal Differential Diagnosis Dehydration, electrolyte abnormality, sepsis Narrative Course This is a 62-year-old male who presents to the emergency department with generalized fatigue and weakness. He has a history of metastatic hepatocellular carcinoma. Labs are all reassuring today. He had a mildly elevated lactic acid yesterday. Labs are repeated today and demonstrate a mildly elevated BUN consistent with dehydration but are otherwise reassuring with no evidence of infection. I think the patient can safely be discharged home and I suspect his symptoms are secondary to dehydration. He was given a liter of IV hydration and asked to follow-up with Dr. Sweeney. Diagnosis Primary Impression: Weakness Patient Instructions: General Instructions Additional Instructions: If you develop severe chest pain, shortness of breath, sweating, lightheadedness , dizziness or difficulty breathing return to the emergency department immediately. Followup with your primary care physician in 2-3 days if your symptoms are not resolved. Med/Other Pt SpecificInfo: No Change to Meds Disposition: 01 DISCHARGE HOME Condition: Stable Abigail Armendariz MD Oct 02, 2017 13:14
[2017-10-02] MEDS ORDERED: HYDROmorphone HCL PF 2 MG/ML VIAL IV PUSH ONE (13:15)
[2017-10-02] MEDS ORDERED: SODIUM CHLOR 0.9% 1000 ML INJ 1,000 ML IV ONE (13:15)
[2017-10-02 13:51] LABS: AUTOMATED NEUTROPHIL # 3.6 TH/MM3 (1.8-7.7); BASOPHIL # 0.1 TH/MM3 (0-0.2); BASOPHIL % 0.6 % (0.0-2.0); EOSINOPHIL # 0.1 TH/MM3 (0-0.4); EOSINOPHIL % 0.7 % (0.0-4.0); HEMATOCRIT 41.7 % (39.0-51.0); HEMOGLOBIN 13.5 GM/DL (13.0-17.0); LYMPH % 52.5 % (9.0-44.0); LYMPHOCYTE # 5.3 TH/MM3 (1.0-4.8); MEAN CELL VOLUME 81.5 FL (80.0-100.0); MEAN CORPUSCULAR HEMOGLOBIN 26.4 PG (27.0-34.0); MEAN CORPUSCULAR HGB CONC 32.3 % (32.0-36.0); MEAN PLATELET VOLUME 9.5 FL (7.0-11.0); MONO % 10.2 % (0.0-8.0); PLATELET COUNT 231 TH/MM3 (150-450); RED BLOOD COUNT 5.11 MIL/MM3 (4.50-5.90); RED CELL DISTRIBUTION WIDTH 16.1 % (11.6-17.2); WHITE BLOOD COUNT 10.1 TH/MM3 (4.0-11.0)
[2017-10-02 14:06] LABS: BICARBONATE 24.2 MEQ/L (21.0-32.0); BLOOD UREA NITROGEN 28 MG/DL (7-18); CALCIUM 8.9 MG/DL (8.5-10.1); CHLORIDE 107 MEQ/L (98-107); CREATININE 1.08 MG/DL (0.60-1.30); GLOMERULAR FILTRATION RATE 70 ML/MIN (>89); GLUCOSE,RANDOM 72 MG/DL (74-106); SODIUM (NA) 140 MEQ/L (136-145)
[2017-10-02 14:11] LABS: TROPONIN I LESS THAN 0.02 NG/ML (0.02-0.05)
[2017-10-02 14:48] LABS: ATYPICAL LYMPHOCYTES 10 % (0-0); BANDS 2 % (0-6); BASOPHILS 2 % (0-2); LYMPHOCYTES 40 % (9-44); MONOCYTES 7 % (0-8); NEUTROPHIL # MANUAL DIFF 4.1 TH/MM3 (1.8-7.7); POLYS (SEG NEUTROPHILS) 39 % (16-70)
== END 2017-10-02 15:28 | disposition home or self-care (01) ==
LOC: NEPD 12:08
DX: R53.1 Weakness (principal); E86.0 Dehydration; C22.0 Liver cell carcinoma; I10 Essential (primary) hypertension; E78.00 Pure hypercholesterolemia, unspecified; J44.9 Chronic obstructive pulmonary disease, unspecified; M19.90 Unspecified osteoarthritis, unspecified site; F41.9 Anxiety disorder, unspecified; F17.210 Nicotine dependence, cigarettes, uncomplicated; Z85.118 Personal history of other malignant neoplasm of bronchus and lung; Z85.828 Personal history of other malignant neoplasm of skin; Z92.21 Personal history of antineoplastic chemotherapy; Z79.899 Other long term (current) drug therapy
CPT/HCPCS: 80048; 84484; 85007; 85027; 96374; 99284; J1170; J7030

== ENCOUNTER 2017-11-11 14:38 | Observation (INO) ==
[2017-11-11] MEDS ORDERED: HYDROmorphone PF Inj 1 MG/ML Ampul IV.PUSH ONE ×2 (16:17→19:52)
[2017-11-11] MEDS ORDERED: Sod Chloride 0.9% Inj 1,000 ML IV.SIG ONE (16:17)
[2017-11-11] MEDS ORDERED: HYDROmorphone PF Inj 2 MG/ML Vial ONE ×2 (16:26→20:10)
--- NOTE | 2017-11-11 17:03 | ED ---
HPI General Chief complaint: Nausea/Vomiting/Diarrhea Stated complaint: vomiting Time Seen by Provider: 11/11/17 16:02 Source: patient Mode of arrival: wheelchair Limitations: no limitations History of Present Illness HPI Narrative: 62-year-old male the presents to the ED for evaluation of nausea vomiting and abdominal pain. Patient has a significant history of metastatic cancer. Patient has lung and liver masses as well as melanoma. Patient has oral chemo as well as radiation. Per patient for the past 2 days has been having more nausea and vomiting abdominal pain. Per patient he cannot keep anything down including his pain medications and his symptoms have progressively gotten worse. He cannot keep fluids down. His been having diarrhea as well. Denies any chest pain. He denies any worsening shortness of breath. Per patient he has not been able to follow with his doctor for this. He also tells me that he is passed out twice today but denies any his head. He states that he feels dehydrated. No urinary issues. No blood thinner use. Pain per patient is 10 out of 10 especially in the abdomen. Related Data Home Medications Medication Instructions Recorded Confirmed aspirin 81 mg PO DAILY 11/11/17 11/11/17 atorvastatin 40 mg PO DAILY 11/11/17 11/11/17 carvedilol 6.25 mg PO BID 11/11/17 11/11/17 clonidine HCl 0.1 mg PO DAILY 11/11/17 11/11/17 hydromorphone 4 mg PO Q4H PRN 11/11/17 11/11/17 isosorbide dinitrate 30 mg PO DAILY 11/11/17 11/11/17 lisinopril 5 mg PO DAILY 11/11/17 11/11/17 nitroglycerin 0.4 mg SUBLINGUAL Q5-15M PRN 11/11/17 11/11/17 potassium chloride 40 meq PO BID 11/11/17 11/11/17 sorafenib [Nexavar] 200 mg PO DAILY 11/11/17 11/11/17 ticagrelor [Brilinta] 90 mg PO BID 11/11/17 11/11/17 Allergies Allergy/AdvReac Type Severity Reaction Status Date / Time No Known Allergies Allergy Verified 10/19/17 17:19 Review of Systems ROS Unobtainable All other systems reviewed negative except as stated in HPI [facility] Medical History Medical History Angina pectoris (Acute) Anxiety (Acute) Cardiac catheterization as the cause of abnormal reaction of the patient, or of later complication, without mention of misadventure at the time of the procedure (Acute) Chest pain (Acute) Chronic pain (Acute) Decreased vision (Acute) Depression (Acute) Dizziness (Acute) Hepatitis C (Acute) History of MRSA infection (Acute) Hypertension (Acute) Light-headedness (Acute) Liver cancer (Acute) Lung cancer (Acute) Migraine (Acute) Shortness of breath (Acute) Skin cancer (Acute) Surgical History Surgical History Hx of cardiac cath (Acute) Social History Social History Substance History: Past History Second Hand Smoke Exposure: Yes Smoking Status: Current every day smoker Tobacco Type: Cigarettes How Often Do You Have a Drink Containing Alcohol: Never Recent Travel in [facility] within the Last 8 Weeks: No Recent Out of Country Travel within the Last 8 Weeks: No Immunization History Tetanus Immunization: <5 Years Exam Narrative Exam Narrative: GENERAL: Very anorexic and disheveled SKIN: Focused skin assessment warm/dry. Has multiple skin lesions to his face HEAD: Atraumatic. Normocephalic. EYES: Pupils equal and round 4 mms reactive to light and accommodation. No scleral icterus. No injection or drainage. ENT: No nasal bleeding or discharge. Mucous membranes pink and moist. Tongue is midline. No uvula deviation. NECK: Trachea midline. No JVD. CARDIOVASCULAR: Regular rate and rhythm. No murmur appreciated. RESPIRATORY: No accessory muscle use. Clear to auscultation. Breath sounds equal bilaterally. GASTROINTESTINAL: Abdomen soft, tender to touch in the right upper quadrant of the abdomen., nondistended. Hepatic and splenic margins not palpable. MUSCULOSKELETAL: No obvious deformities. No clubbing. No cyanosis. No edema. Full range of motion of the upper and lower extremities bilaterally. NEUROLOGICAL: Awake and alert. No obvious cranial nerve deficits. Motor grossly within normal limits. Normal speech. PSYCHIATRIC: Appropriate mood and affect; insight and judgment normal. Course Initial Documented Vital Signs Temperature 98.7 F 11/11/17 14:50 Pulse Rate 98 H 11/11/17 14:50 Blood Pressure 118/73 11/11/17 14:50 Pulse Oximetry 99 11/11/17 14:50 Last Documented Vital Signs Temperature 98.7 F 11/11/17 14:50 Pulse Rate 67 11/11/17 19:39 Respiratory Rate 16 11/11/17 19:39 Blood Pressure 154/95 H 11/11/17 19:39 Pulse Oximetry 98 11/11/17 19:39 Medical Decision Making HANS Attestation HANS supervised visit: Yes Attestation: I, Dr. Castillo, have reviewed the advance practice practitioner's documentation and am in agreement, met with the patient face to face, made the diagnosis, and the medical decision making was done by me. *My assessment and Findings: Patient seen and evaluated with PA, please see PA notes for further details. He is coming in with nausea, vomiting, diarrhea, not keep anything down for several days at home. At this point, dry mucous membranes, appears to be doing poorly and IV fluids are initiated in the ER. Lab work done for further evaluation of electrolyte issues and dehydration, there is suspicion they could be secondary to chemotherapy and cancer as well. Planning to admit the patient for further treatment. MDM Narrative Medical decision making narrative: 62-year-old male the presents to the ED for evaluation of nausea vomiting and abdominal pain. Patient was properly examined and was found to have signs and symptoms very concerning for the hydration. Nausea and vomiting. Labs and imaging order. Patient was given IV pain medications and antiemetics as well as fluids. Labs and imaging showed worsening kidney function. Likely from dehydration. Recommendation by my attending is for admission for further evaluation and treatment. Case discussed wt Dr Rojas who agrees to admission. Differential Diagnosis Differential Diagnosis: Dehydration versus nausea and vomiting is intractable nausea and vomiting versus cancer pain versus syncope Medical Records Medical records reviewed: Yes I reviewed the patient's medical records. Lab Data Lab results reviewed: Yes I reviewed the patient's lab results. Lab results narrative: troponin and CKMB neative Result diagrams: 11/11/17 16:30 11/11/17 16:30 Lab Results 11/11/17 11/11/17 11/11/17 Range/Units 16:30 16:30 16:30 WBC 12.3 H (4.0-11.0) th/mm3 RBC 5.62 (4.50-5.90) mil/mm3 Hgb 15.0 (13.0-17.0) gm/dL Hct 45.8 (39.0-51.0) % MCV 81.6 (80.0-100.0) fL MCH 26.6 L (27.0-34.0) pg MCHC 32.6 (32.0-36.0) % RDW 18.9 H (11.6-17.2) % Plt Count 273 D (150-450) th/mm3 MPV 9.3 (7.0-11.0) fL Neut % (Auto) 85.9 H (16.0-70.0) % Lymph % (Auto) 9.1 (9.0-44.0) % Harrison % (Auto) 4.7 (0.0-8.0) % Eos % (Auto) 0.1 (0.0-4.0) % Baso % (Auto) 0.2 (0.0-2.0) % Neut # (Auto) 10.6 H (1.8-7.7) th/mm3 Lymph # (Auto) 1.1 (1.0-4.8) th/mm3 Harrison # (Auto) 0.6 (0.0-0.9) th/mm3 Eos # (Auto) 0.0 (0.0-0.4) th/mm3 Baso # (Auto) 0.0 (0.0-0.2) th/mm3 WBC Differential . Differential Comment Auto diff final PT 11.3 (9.8-11.6) sec INR 1.1 Ratio APTT 23.8 L (24.3-30.1) sec Sodium 138 (136-145) meq/L Potassium 3.3 L (3.5-5.1) meq/L Chloride 98 (98-107) meq/L Carbon Dioxide 27.4 (21.0-32.0) meq/L Anion Gap 13 (5-15) meq/L BUN 40 H (7-18) mg/dL Creatinine 1.33 H (0.60-1.30) mg/dL Estimated GFR 55 L (>89) mL/min Random Glucose 90 (74-106) mg/dL Lactic Acid (0.4-2.0) mmol/L Calcium 9.5 (8.5-10.1) mg/dL Total Bilirubin 1.0 (0.2-1.0) mg/dL AST 89 H (15-37) U/L ALT 57 (12-78) U/L Alkaline Phosphatase 113 (45-117) U/L Total Creatine Kinase 103 (39-308) U/L CK-MB (CK-2) 1.9 (0.5-3.6) ng/mL Troponin I 0.05 (0.02-0.05) ng/mL Total Protein 9.3 H (6.4-8.2) g/dL Albumin 3.6 (3.4-5.0) g/dL Lipase 89 (73-393) U/L Urine Color (Yellw/Straw) Urine Clarity (Clear) Urine pH (5.0-8.5) Ur Specific [place] (1.002-1.035) Urine Protein (Neg-Trace) mg/dL Urine Glucose (UA) (Negative) mg/dL Urine Ketones (Negative) mg/dL Urine Occult Blood (Negative) Urine Nitrate (Negative) Urine Bilirubin (Negative) Urine Urobilinogen (Less than 2) mg/dL Ur Leukocyte Esterase (Negative) Urine RBC (0-3) /hpf Urine WBC (0-5) /hpf Hyaline Casts (0-3) /lpf Micro UA Comment Urine Culture Comments 11/11/17 11/11/17 Range/Units 16:30 17:30 WBC (4.0-11.0) th/mm3 RBC (4.50-5.90) mil/mm3 Hgb (13.0-17.0) gm/dL Hct (39.0-51.0) % MCV (80.0-100.0) fL MCH (27.0-34.0) pg MCHC (32.0-36.0) % RDW (11.6-17.2) % Plt Count (150-450) th/mm3 MPV (7.0-11.0) fL Neut % (Auto) (16.0-70.0) % Lymph % (Auto) (9.0-44.0) % Harrison % (Auto) (0.0-8.0) % Eos % (Auto) (0.0-4.0) % Baso % (Auto) (0.0-2.0) % Neut # (Auto) (1.8-7.7) th/mm3 Lymph # (Auto) (1.0-4.8) th/mm3 Harrison # (Auto) (0.0-0.9) th/mm3 Eos # (Auto) (0.0-0.4) th/mm3 Baso # (Auto) (0.0-0.2) th/mm3 WBC Differential Differential Comment PT (9.8-11.6) sec INR Ratio APTT (24.3-30.1) sec Sodium (136-145) meq/L Potassium (3.5-5.1) meq/L Chloride (98-107) meq/L Carbon Dioxide (21.0-32.0) meq/L Anion Gap (5-15) meq/L BUN (7-18) mg/dL Creatinine (0.60-1.30) mg/dL Estimated GFR (>89) mL/min Random Glucose (74-106) mg/dL Lactic Acid 1.4 (0.4-2.0) mmol/L Calcium (8.5-10.1) mg/dL Total Bilirubin (0.2-1.0) mg/dL AST (15-37) U/L ALT (12-78) U/L Alkaline Phosphatase (45-117) U/L Total Creatine Kinase (39-308) U/L CK-MB (CK-2) (0.5-3.6) ng/mL Troponin I (0.02-0.05) ng/mL Total Protein (6.4-8.2) g/dL Albumin (3.4-5.0) g/dL Lipase (73-393) U/L Urine Color Yellow (Yellw/Straw) Urine Clarity Hazy H (Clear) Urine pH 5.0 (5.0-8.5) Ur Specific [place] 1.021 (1.002-1.035) Urine Protein 30 H (Neg-Trace) mg/dL Urine Glucose (UA) Negative (Negative) mg/dL Urine Ketones Negative (Negative) mg/dL Urine Occult Blood Negative (Negative) Urine Nitrate Negative (Negative) Urine Bilirubin Negative (Negative) Urine Urobilinogen 2.0 H (Less than 2) mg/dL Ur Leukocyte Esterase Negative (Negative) Urine RBC 1 (0-3) /hpf Urine WBC 2 (0-5) /hpf Hyaline Casts 9 (0-3) /lpf Micro UA Comment Culture not ind Urine Culture Comments Culture not ind Imaging Data Attestation: I personally reviewed and interpreted this imaging study as follows : Radiologist's impression: Abdomen/Pelvis CT 11/11/17 16:17 CONCLUSION: 1. Abnormal appearance of the right lobe of the liver and medial segment left lobe of the liver consistent with the patient's diagnosis of hepatic cancer. There is tumor thrombus extending into the right main portal vein. 2. Persistent left lung mass. 3. There appears to be some thrombus within the SMV. This is nonocclusive. 4. Persistent left adrenal gland mass. Chest X-Ray 11/11/17 16:17 CONCLUSION: No acute cardiopulmonary disease. There is no evidence of pneumonia. Head CT 11/11/17 19:05 CONCLUSION: 1. No acute abnormality seen. 2. Encephalomalacia at the right parietal lobe. 3. Suspected areas of demyelination in the cerebral white matter. . Discharge Plan Discharge Disposition Patient Disposition: 30 Still Patient Discharge Details Diagnosis: Dehydration, Acute kidney injury, Nausea & vomiting Physicians Team ED Provider: Francoise Castillo ED Midlevel Provider: Imtiaz Verma Primary Care Provider: Primary Care María Billings Attending Provider: Cynthia Rojas Discharge Interventions Interventions: Vital Signs Last Done: 11/11/17 19:39 Status ED Status: Admitted Observation Patient
[2017-11-11 17:15] LABS: Baso % (Auto) 0.2 % (0.0-2.0); Eos % (Auto) 0.1 % (0.0-4.0); Hematocrit 45.8 % (39.0-51.0); Lymph # (Auto) 1.1 th/mm3 (1.0-4.8); Lymph % (Auto) 9.1 % (9.0-44.0); Mean Corpuscular HGB Conc 32.6 % (32.0-36.0); Mean Corpuscular Hemoglobin 26.6 pg (27.0-34.0); Mean Corpuscular Volume 81.6 fL (80.0-100.0); Mean Platelet Volume 9.3 fL (7.0-11.0); Mono # (Auto) 0.6 th/mm3 (0.0-0.9); Mono % (Auto) 4.7 % (0.0-8.0); Neut # (Auto) 10.6 th/mm3 (1.8-7.7); Neut % (Auto) 85.9 % (16.0-70.0); Platelet Count 273 th/mm3 (150-450); Red Blood Count 5.62 mil/mm3 (4.50-5.90); Red Cell Distribution Width 18.9 % (11.6-17.2); White Blood Count 12.3 th/mm3 (4.0-11.0)
--- NOTE | 2017-11-11 17:21 | XR ---
EXAM DATE: 11/11/2017 5:10 PM EDT AGE/SEX: 62 years / Male INDICATIONS: Cough. CLINICAL DATA: This is the patient's initial encounter. Patient reports that signs and symptoms have been present for > 1 year and indicates a pain score of 8/10. MEDICAL/SURGICAL HISTORY: Carcinoma, lung. Chronic obstructive pulmonary disease. Carcinoma, l iver, myocardial infarction. Coronary artery stent. COMPARISON: [facility] – [place], CHEST 1V SINGLE AP, 10/19/2017. . FINDINGS: A single AP view of the chest demonstrates the lungs to be symmetrically aerated without evidence of mass, infiltrate or effusion. The cardiomediastinal contours are unremarkable. Osseous structures a re intact. CONCLUSION: No acute cardiopulmonary disease. There is no evidence of pneumonia. Electronically signed by: Evaristo Cameron MD 11/11/2017 5:20 PM EDT
[2017-11-11 17:23] LABS: Activated Partial Thrombo Time 23.8 sec (24.3-30.1); INR 1.1 Ratio; Prothrombin Time 11.3 sec (9.8-11.6)
[2017-11-11 17:34] LABS: Alanine Aminotransferase 57 U/L (12-78)
[2017-11-11 17:36] LABS: Albumin 3.6 g/dL (3.4-5.0); Anion Gap 13 meq/L (5-15); Aspartate Aminotransferase 89 U/L (15-37); Blood Urea Nitrogen 40 mg/dL (7-18); Calcium 9.5 mg/dL (8.5-10.1); Carbon Dioxide 27.4 meq/L (21.0-32.0); Chloride 98 meq/L (98-107); Glomerular Filtration Rate 55 mL/min (>89); Glucose,Random 90 mg/dL (74-106); Lipase 89 U/L (73-393); Potassium 3.3 meq/L (3.5-5.1); Sodium 138 meq/L (136-145)
[2017-11-11 17:38] LABS: Alkaline Phosphatase 113 U/L (45-117); Creatine Kinase 103 U/L (39-308); Total Protein 9.3 g/dL (6.4-8.2); Troponin I 0.05 ng/mL (0.02-0.05)
[2017-11-11 17:50] LABS: Creatine Kinase MB 1.9 ng/mL (0.5-3.6)
[2017-11-11 18:33] LABS: Bilirubin,Urine Negative (Negative); Clarity,Urine Hazy (Clear); Color,Urine Yellow (Yellw/Straw); Glucose,Urine (UA) Negative (Negative); Hyaline Casts,Urine 9 /lpf (0-3); Leukocyte Esterase,Urine Negative (Negative); Nitrite,Urine Negative (Negative); Specific Gravity,Urine 1.021 (1.002-1.035)
--- NOTE | 2017-11-11 19:01 | CT ---
EXAM DATE: 11/11/2017 6:39 PM EDT AGE/SEX: 62 years / Male INDICATIONS: Nausea vomiting,history of liver cancer CLINICAL DATA: This is the patient's initial encounter. Patient reports that signs and symptoms have been present for 1 day and indicates a pain score of 2/10. MEDICAL/SURGICAL HISTORY: Carcinoma, lung. Hepatitis C. Hypertension. liver cancer None. ORAL CONTRAST: No oral contrast ingested. RADIATION DOSE: 6.64 CTDI (mGy) COMPARISON: . TECHNIQUE: Multiple contiguous axial images were obtained through the abdomen and pelvis following b olus infusion of 72 ml Omnipaque 350 (iohexol) nonionic water-soluble contrast as a single exam dos e. No oral contrast ingested. Using automated exposure control and adjustment of the mA and/or kV ac cording to patient size, radiation dose was kept as low as reasonably achievable to obtain optimal di agnostic quality images. DICOM format image data is available electronically for review and comparis on. FINDINGS: Lower Lungs: There is a persistent 1.8 cm mass at the medial posterior left lower lobe. Liver: There is heterogeneity and masses seen in the right lobe of the liver and in the medial segmen t the left lobe. There is relative sparing of the lateral segment the left lobe of the liver and caud ate lobes.. There is extension of mass into the right portal vein. There does appear to be some low s ignal within the SMV concerning for thrombus. Spleen: Homogeneous density without enlargement. Pancreas: Unremarkable without mass or calcification. Kidneys: Normal in size and shape. No evidence of hydronephrosis. There is a 2.5 cm cyst at the late ral mid left kidney. Adrenal Glands: There is 3.3 cm left adrenal gland mass. The right adrenal gland is grossly normal. Aorta: The aorta and proximal iliac vessels are grossly unremarkable without aneurysmal dilation. A therosclerotic calcifications are present. Bowel/Mesentery: The bowel loops are grossly unremarkable. The cecum and sigmoid colon have a normal configuration. Abdominal Wall: Intact. Retroperitoneum: No evidence of adenopathy in the retrocrural, para-aortic, or deep pelvic regions. Bladder: Contours are smooth. Reproductive Organs: No abnormal masses seen. Prostate calcifications are seen. Inguinal: The inguinal region is unremarkable without evidence of adenopathy. Bony Structures: Unremarkable. CONCLUSION: 1. Abnormal appearance of the right lobe of the liver and medial segment left lobe of the liver cons istent with the patient's diagnosis of hepatic cancer. There is tumor thrombus extending into the rig ht main portal vein. 2. Persistent left lung mass. 3. There appears to be some thrombus within the SMV. This is nonocclusive. 4. Persistent left adrenal gland mass. Electronically signed by: Dread Hilton MD 11/11/2017 6:59 PM EDT
[2017-11-11] MEDS ORDERED: Sodium Chlor 0.9% Inj 500 ML IV.SIG ONE (19:52)
--- NOTE | 2017-11-11 20:10 | CT ---
EXAM DATE: 11/11/2017 7:33 PM EDT AGE/SEX: 62 years / Male INDICATIONS: Syncope CLINICAL DATA: This is the patient's initial encounter. Patient reports that signs and symptoms have been present for 1 day and indicates a pain score of 0/10. MEDICAL/SURGICAL HISTORY: Hypertension. Carcinoma, lung. Cardiovascular disease. liver cancer N one. RADIATION DOSE: 36.35 CTDI (mGy) COMPARISON: [facility] – [place], [place] HEAD W/O CONTRAST, 10/19/2017. . TECHNIQUE: CT of the head without contrast. Using automated exposure control and adjustment of the mA and/or kV according to patient size, radiation dose was kept as low as reasonably achievable to ob tain optimal diagnostic quality images. DICOM format image data is available electronically for revi ew and comparison. FINDINGS: Cerebrum: The ventricles are normal for age. There is persistent encephalomalacia at the posterior s uperior lateral right parietal lobe. There are scattered areas of low density in the cerebral white m atter. No evidence of midline shift, mass lesion, hemorrhage or acute infarction. No extraaxial flui d collections are seen. Posterior Fossa: The cerebellum and brainstem are intact. The 4th ventricle is midline. The cerebe llopontine angle is unremarkable. Extracranial: The visualized portion of the orbits is intact. Skull: The calvaria is intact. No evidence of skull fracture. CONCLUSION: 1. No acute abnormality seen. 2. Encephalomalacia at the right parietal lobe. 3. Suspected areas of demyelination in the cerebral white matter. . Electronically signed by: Dread Hilton MD 11/11/2017 8:08 PM EDT
[2017-11-11] MEDS ORDERED: HYDROmorphone PF Inj 2 MG/ML Vial IV.PUSH PRN (20:39)
--- NOTE | 2017-11-11 20:57 | P.HP ---
History of Present Illness Service: [facility] Primary Care Physician: No Primary Care Physician History of Present Illness: 62-year-old male with past medical history significant for liver and lung cancer came to the emergency department for the evaluation of intractable nausea /vomiting. The patient is currently undergoing chemotherapy as well as radiation therapy. For the past 2 days he has been having increased nausea and vomiting with accompanying abdominal pain. He states he has been unable to keep anything down including his pain medication and his symptoms have progressively worsened. He also reports he has been unable to keep any fluids down. Positive diarrhea. No chest pain or shortness of breath. No fever/ chills. No lateralizing signs/symptoms. Review of Systems All other systems reviewed negative except as stated in HPI PMFSH - History History Provided By: Patient - Medical History Medical History: Medical History (Last Reviewed 11/11/17 @ 17:01 by GISELE Hall) Angina pectoris Anxiety Cardiac catheterization as the cause of abnormal reaction of the patient, or of later complication, without mention of misadventure at the time of the procedure Chest pain Chronic pain Decreased vision Depression Dizziness Hepatitis C History of MRSA infection Hypertension Light-headedness Liver cancer Lung cancer Migraine Shortness of breath Skin cancer - Surgical History Surgical History: Surgical History (Last Reviewed 11/11/17 @ 17:01 by GISELE Hall) Hx of cardiac cath - Tobacco History Second Hand Smoke Exposure: Yes Tobacco Use In Past 30 Days: Yes Smoking Status: Current every day smoker Tobacco Type: Cigarettes - Alcohol History How Often Do You Have a Drink Containing Alcohol: Never - Substance Use History Substance History: Past History - Travel History Recent Travel in the [place] Within the Last 8 Weeks: No Recent Travel Out of the Country Within the Last 8 Weeks: No - Immunization History Tetanus Immunization: <5 Years Medications and Allergies Active Medications: Active Medications Heparin Sodium (Porcine) (Heparin Inj) 5,000 units SQ Q8H LAY Hydromorphone HCl (Dilaudid Pf Inj) 1 mg IV.PUSH Q4H PRN PRN Reason: ABDOMINAL PAIN Sodium Chloride (Ns Inj) 1,000 mls @ 100 mls/hr IV.CONT .Q10H LAY Ondansetron HCl (Zofran Inj) 4 mg IV.PUSH Q6H PRN PRN Reason: NAUSEA OR VOMITING Allergies Allergy/AdvReac Type Severity Reaction Status Date / Time No Known Allergies Allergy Verified 10/19/17 17:19 Home Medications Medication Instructions Recorded Confirmed Type aspirin 81 mg PO DAILY 11/11/17 11/11/17 History atorvastatin 40 mg PO DAILY 11/11/17 11/11/17 History carvedilol 6.25 mg PO BID 11/11/17 11/11/17 History clonidine HCl 0.1 mg PO DAILY 11/11/17 11/11/17 History hydromorphone 4 mg PO Q4H PRN 11/11/17 11/11/17 History isosorbide dinitrate 30 mg PO DAILY 11/11/17 11/11/17 History lisinopril 5 mg PO DAILY 11/11/17 11/11/17 History nitroglycerin 0.4 mg SUBLINGUAL Q5-15M PRN 11/11/17 11/11/17 History potassium chloride 40 meq PO BID 11/11/17 11/11/17 History sorafenib [Nexavar] 200 mg PO DAILY 11/11/17 11/11/17 History ticagrelor [Brilinta] 90 mg PO BID 11/11/17 11/11/17 History Exam Vital signs: Vital Signs 11/11/17 14:50 11/11/17 16:41 11/11/17 17:37 Temperature 98.7 F Pulse Rate 98 H 74 72 Respiratory Rate 17 17 Blood Pressure 118/73 127/66 162/87 H Pulse Oximetry 99 96 100 11/11/17 19:39 Temperature Pulse Rate 67 Respiratory Rate 16 Blood Pressure 154/95 H Pulse Oximetry 98 Intake & Output 11/11/17 11/11/17 11/12/17 06:59 18:59 06:59 Weight 52.163 kg Narrative: Gen.: No acute distress. Patient sitting up in bed eating a full meal. Head: Normocephalic. Atraumatic. EENT: Pupils equal round and reactive to light. Nose without drainage. Airway intact. Throat without injection. Cardiovascular: Regular rate and rhythm. No murmurs, rubs or gallops. Respiratory: Lungs clear to auscultation bilaterally. No wheezes or rhonchi. Abdomen: Soft, nontender, nondistended. No peritoneal signs. Musculoskeletal: No gross deformities. No edema. Skin: No obvious rashes or erythema. Neuro: Sensory and motor grossly intact. Cranial nerves II through XII grossly intact. Results - Labs CBC & Chem 7: 11/11/17 16:30 11/11/17 16:30 Labs: Laboratory Results - last 24 hr 11/11/17 11/11/17 11/11/17 16:30 16:30 16:30 WBC 12.3 H RBC 5.62 Hgb 15.0 Hct 45.8 MCV 81.6 MCH 26.6 L MCHC 32.6 RDW 18.9 H Plt Count 273 D MPV 9.3 Neut % (Auto) 85.9 H Lymph % (Auto) 9.1 Chambers % (Auto) 4.7 Eos % (Auto) 0.1 Baso % (Auto) 0.2 Neut # (Auto) 10.6 H Lymph # (Auto) 1.1 [place] # (Auto) 0.6 Eos # (Auto) 0.0 Baso # (Auto) 0.0 WBC Differential . Differential Comment Auto diff final PT 11.3 INR 1.1 APTT 23.8 L Sodium 138 Potassium 3.3 L Chloride 98 Carbon Dioxide 27.4 Anion Gap 13 BUN 40 H Creatinine 1.33 H Estimated GFR 55 L Random Glucose 90 Lactic Acid Calcium 9.5 Total Bilirubin 1.0 AST 89 H ALT 57 Alkaline Phosphatase 113 Total Creatine Kinase 103 CK-MB (CK-2) 1.9 Troponin I 0.05 Total Protein 9.3 H Albumin 3.6 Lipase 89 Urine Color Urine Clarity Urine pH Ur Specific [place] Urine Protein Urine Glucose (UA) Urine Ketones Urine Occult Blood Urine Nitrate Urine Bilirubin Urine Urobilinogen Ur Leukocyte Esterase Urine RBC Urine WBC Hyaline Casts Micro UA Comment Urine Culture Comments 11/11/17 11/11/17 16:30 17:30 WBC RBC Hgb Hct MCV MCH MCHC RDW Plt Count MPV Neut % (Auto) Lymph % (Auto) [place] % (Auto) Eos % (Auto) Baso % (Auto) Neut # (Auto) Lymph # (Auto) [place] # (Auto) Eos # (Auto) Baso # (Auto) WBC Differential Differential Comment PT INR APTT Sodium Potassium Chloride Carbon Dioxide Anion Gap BUN Creatinine Estimated GFR Random Glucose Lactic Acid 1.4 Calcium Total Bilirubin AST ALT Alkaline Phosphatase Total Creatine Kinase CK-MB (CK-2) Troponin I Total Protein Albumin Lipase Urine Color Yellow Urine Clarity Hazy H Urine pH 5.0 Ur Specific [place]ifting 1.021 Urine Protein 30 H Urine Glucose (UA) Negative Urine Ketones Negative Urine Occult Blood Negative Urine Nitrate Negative Urine Bilirubin Negative Urine Urobilinogen 2.0 H Ur Leukocyte Esterase Negative Urine RBC 1 Urine WBC 2 Hyaline Casts 9 Micro UA Comment Culture not ind Urine Culture Comments Culture not ind - Imaging Impressions Abdomen/Pelvis CT 11/11/17 16:17 CONCLUSION: 1. Abnormal appearance of the right lobe of the liver and medial segment left lobe of the liver consistent with the patient's diagnosis of hepatic cancer. There is tumor thrombus extending into the right main portal vein. 2. Persistent left lung mass. 3. There appears to be some thrombus within the SMV. This is nonocclusive. 4. Persistent left adrenal gland mass. Chest X-Ray 11/11/17 16:17 CONCLUSION: No acute cardiopulmonary disease. There is no evidence of pneumonia. Head CT 11/11/17 19:05 CONCLUSION: 1. No acute abnormality seen. 2. Encephalomalacia at the right parietal lobe. 3. Suspected areas of demyelination in the cerebral white matter. . Caprini VTE Risk Assessment Caprini VTE Risk Assessment: Moderate/High Risk (score >= 2) Caprini Risk Assessment Model: Point Value = 1 Point Value = 2 Point Value = 3 Point Value = 5 Age 41-60 Minor surgery BMI > 25 kg/m2 Swollen legs Varicose veins or History of unexplained or recurrent spontaneous Oral contraceptives or hormone replacement Sepsis (< 1 month) Serious lung disease, including pneumonia (< 1 month) Abnormal pulmonary function Acute myocardial infarction Congestive heart failure (< 1 month) History of inflammatory bowel disease Medical patient at bed rest Age 61-74 Arthroscopic surgery Major open surgery (> 45 min) Laparoscopic surgery (> 45 min) Malignancy Confined to bed (> 72 hours) Immobilizing plaster cast Central venous access Age >= 75 History of VTE Family history of VTE Factor V Leiden Prothrombin [id number] Lupus anticoagulant Anticardiolipin antibodies Elevated serum homocysteine Heparin-induced thrombocytopenia Other congenital or acquired thrombophilia Stroke (< 1 month) Elective arthroplasty Hip, pelvis, or leg fracture Acute spinal cord injury (< 1 month) Prophylaxis Regimen: Total Risk Factor Score Risk Level Prophylaxis Regimen 0-1 Low Early ambulation 2 Moderate Order ONE of the following: *Sequential Compression Device (SCD) *Heparin 5000 units SQ BID 3-4 Higher Order ONE of the following medications: *Heparin 5000 units SQ TID *Enoxaparin/Lovenox 40 mg SQ daily (WT < 150 kg, CrCl > 30 mL/min) *Enoxaparin/Lovenox 30 mg SQ daily (WT < 150 kg, CrCl > 10-29 mL/min) *Enoxaparin/Lovenox 30 mg SQ BID (WT < 150 kg, CrCl > 30 mL/min) AND/OR *Sequential Compression Device (SCD) 5 or more Highest Order ONE of the following medications: *Heparin 5000 units SQ TID (Preferred with Epidurals) *Enoxaparin/Lovenox 40 mg SQ daily (WT < 150 kg, CrCl > 30 mL/min) *Enoxaparin/Lovenox 30 mg SQ daily (WT < 150 kg, CrCl > 10-29 mL/min) *Enoxaparin/Lovenox 30 mg SQ BID (WT < 150 kg, CrCl > 30 mL/min) AND *Sequential Compression Device (SCD) Assessment and Plan - Plan Assessment/plan: 1. Intractable nausea/vomiting Resolved At the time of our interview, the patient is eating solid food and states he is "hungry" Anticipate discharge early tomorrow 2. Dehydration BUN 40, creatinine 1.33 IV fluid hydration Monitor 3. Metastatic lung and liver cancer Follow-up with oncology as an outpatient FEN Regular diet as tolerated Electrolytes: Status post p.o. repletion of potassium -monitor NAHUN NS nursing at 100 cc/hour Juventino
[2017-11-11] MEDS ORDERED: Heparin - SQ 10,000 UNITS/ML Vial SQ SCH (22:00)
[2017-11-11] MEDS: Carvedilol 6.25 MG Tablet PO SCH (22:53)
[2017-11-12] MEDS: Sod Chloride 0.9% Inj 1,000 ML IV.CONT SCH ×2 (03:29→09:51)
[2017-11-12 08:55] LABS: Baso % (Auto) 0.3 % (0.0-2.0); Eos % (Auto) 0.7 % (0.0-4.0); Hematocrit 40.2 % (39.0-51.0); Hemoglobin 13.1 gm/dL (13.0-17.0); Lymph # (Auto) 1.4 th/mm3 (1.0-4.8); Lymph % (Auto) 20.4 % (9.0-44.0); Mean Corpuscular HGB Conc 32.6 % (32.0-36.0); Mean Corpuscular Hemoglobin 27.1 pg (27.0-34.0); Mean Corpuscular Volume 83.2 fL (80.0-100.0); Mean Platelet Volume 9.1 fL (7.0-11.0); Mono # (Auto) 0.7 th/mm3 (0.0-0.9); Mono % (Auto) 10.2 % (0.0-8.0); Neut # (Auto) 4.7 th/mm3 (1.8-7.7); Neut % (Auto) 68.4 % (16.0-70.0); Platelet Count 171 th/mm3 (150-450); Red Blood Count 4.84 mil/mm3 (4.50-5.90); White Blood Count 6.8 th/mm3 (4.0-11.0)
[2017-11-12] MEDS ORDERED: SORAFENIB PO SCH ×2 (09:00)
[2017-11-12] MEDS ORDERED: Lisinopril 5 MG Tablet PO SCH (09:00)
--- NOTE | 2017-11-12 09:11 | P.PN ---
Subjective Interval history: Follow up for nausea/vomiting. The patient reports feeling better today. He reports no further vomiting since he was in the ER yesterday. He tolerated dinner while in the ER. Denies any abdominal pain. Denies any further episodes of diarrhea. He has no other medical complaints at this time. Physical Exam Vital signs: Vital Signs 11/11/17 14:50 11/11/17 16:41 11/11/17 17:37 Temperature 98.7 F Pulse Rate 98 H 74 72 Respiratory Rate 17 17 Blood Pressure 118/73 127/66 162/87 H Pulse Oximetry 99 96 100 11/11/17 19:39 11/11/17 23:00 11/12/17 00:00 Temperature 98.1 F Pulse Rate 67 63 84 Respiratory Rate 16 16 17 Blood Pressure 154/95 H 142/83 H 118/65 Pulse Oximetry 98 97 97 11/12/17 04:00 11/12/17 08:00 Temperature 98.1 F 98.2 F Pulse Rate 79 60 Respiratory Rate 17 14 Blood Pressure 118/65 155/79 H Pulse Oximetry 96 98 Intake & Output 11/11/17 11/12/17 11/12/17 18:59 06:59 18:59 Intake Total 500 / 500 1000 / 1000 Balance 500 / 500 1000 / 1000 Weight 52.163 kg 52.163 kg Intake: IV 500 / 500 1000 / 1000 NS Inj 500 ML @ Wide Open IV. 500 / 500 SIG BOLUS ONE Rx#:[id number] Other: Weight On Admission 52.163 kg Narrative: GENERAL: Well-nourished, well-developed middle-aged male patient in [facility]. SKIN: Warm and dry. No rash. Multiple facial skin lesions. HEENT: Normocephalic. Atraumatic. Pupils equal and round. Mucous membranes pink and moist. CARDIOVASCULAR: Regular rate and rhythm. No murmur appreciated. RESPIRATORY: No accessory muscle use. Clear to auscultation. Breath sounds equal bilaterally. GASTROINTESTINAL: Abdomen soft, non-tender, nondistended. Normoactive bowel sounds x4. MUSCULOSKELETAL: No obvious deformities. Extremities without clubbing, cyanosis , or edema. NEUROLOGICAL: Awake and alert. No obvious cranial nerve deficits. Motor grossly within normal limits. Moving all extremities spontaneously. Normal speech. PSYCHIATRIC: Appropriate mood and affect; insight and judgment normal. Results - Labs CBC & Chem 7: 11/11/17 16:30 07/24/18 16:30 Laboratory Results - last 24 hr 11/11/17 11/11/17 11/11/17 16:30 16:30 16:30 WBC 12.3 H RBC 5.62 Hgb 15.0 Hct 45.8 MCV 81.6 MCH 26.6 L MCHC 32.6 RDW 18.9 H Plt Count 273 D MPV 9.3 Neut % (Auto) 85.9 H Lymph % (Auto) 9.1 [place] % (Auto) 4.7 Eos % (Auto) 0.1 Baso % (Auto) 0.2 Neut # (Auto) 10.6 H Lymph # (Auto) 1.1 [place] # (Auto) 0.6 Eos # (Auto) 0.0 Baso # (Auto) 0.0 WBC Differential . Differential Comment Auto diff final PT 11.3 INR 1.1 APTT 23.8 L Sodium 138 Potassium 3.3 L Chloride 98 Carbon Dioxide 27.4 Anion Gap 13 BUN 40 H Creatinine 1.33 H Estimated GFR 55 L Random Glucose 90 Lactic Acid Calcium 9.5 Total Bilirubin 1.0 AST 89 H ALT 57 Alkaline Phosphatase 113 Total Creatine Kinase 103 CK-MB (CK-2) 1.9 Troponin I 0.05 Total Protein 9.3 H Albumin 3.6 Lipase 89 Urine Color Urine Clarity Urine pH Ur Specific [place] Urine Protein Urine Glucose (UA) Urine Ketones Urine Occult Blood Urine Nitrate Urine Bilirubin Urine Urobilinogen Ur Leukocyte Esterase Urine RBC Urine WBC Hyaline Casts Micro UA Comment Urine Culture Comments 11/11/17 11/11/17 16:30 17:30 WBC RBC Hgb Hct MCV MCH MCHC RDW Plt Count MPV Neut % (Auto) Lymph % (Auto) [place] % (Auto) Eos % (Auto) Baso % (Auto) Neut # (Auto) Lymph # (Auto) [place] # (Auto) Eos # (Auto) Baso # (Auto) WBC Differential Differential Comment PT INR APTT Sodium Potassium Chloride Carbon Dioxide Anion Gap BUN Creatinine Estimated GFR Random Glucose Lactic Acid 1.4 Calcium Total Bilirubin AST ALT Alkaline Phosphatase Total Creatine Kinase CK-MB (CK-2) Troponin I Total Protein Albumin Lipase Urine Color Yellow Urine Clarity Hazy H Urine pH 5.0 Ur Specific [place] 1.021 Urine Protein 30 H Urine Glucose (UA) Negative Urine Ketones Negative Urine Occult Blood Negative Urine Nitrate Negative Urine Bilirubin Negative Urine Urobilinogen 2.0 H Ur Leukocyte Esterase Negative Urine RBC 1 Urine WBC 2 Hyaline Casts 9 Micro UA Comment Culture not ind Urine Culture Comments Culture not ind - Imaging Impressions Abdomen/Pelvis CT 11/11/17 16:17 CONCLUSION: 1. Abnormal appearance of the right lobe of the liver and medial segment left lobe of the liver consistent with the patient's diagnosis of hepatic cancer. There is tumor thrombus extending into the right main portal vein. 2. Persistent left lung mass. 3. There appears to be some thrombus within the SMV. This is nonocclusive. 4. Persistent left adrenal gland mass. Chest X-Ray 11/11/17 16:17 CONCLUSION: No acute cardiopulmonary disease. There is no evidence of pneumonia. Head CT 11/11/17 19:05 CONCLUSION: 1. No acute abnormality seen. 2. Encephalomalacia at the right parietal lobe. 3. Suspected areas of demyelination in the cerebral white matter. . Assessment and Plan - Plan 62-year-old male with past medical history significant for liver and lung cancer came to the emergency department for the evaluation of intractable nausea /vomiting. The patient is currently undergoing chemotherapy as well as radiation therapy. Intractable nausea/vomiting: suspect secondary to cancer and undergoing chemo/ radiation. -Currently the patient's symptoms have resolved -Advanced to regular diet -Antiemetics prn -Anticipate discharge today if continues to tolerate oral intake HELADIO/Dehydration: secondary to above. BUN 40, creatinine 1.33 -Give IV fluid hydration -Repeat labs pending Metastatic lung and liver cancer: active -Follow-up with oncologist Dr. Sweeney and radiation oncologist Dr. Curtis as an outpatient DVT Prophylaxis: ambulation; on Brilinta Discharge Planning: Likely discharge today if repeat labs improved and if tolerating oral intake. Discharge patient to home Condition on discharge: Stable Regular Diet as tolerated Ad Columba activity Rx written: Larisafran ODT prn Follow-up with primary care physician and oncologist Dr. Sweeney
[2017-11-12 09:20] LABS: Anion Gap 9 meq/L (5-15); Blood Urea Nitrogen 23 mg/dL (7-18); Calcium 8.5 mg/dL (8.5-10.1); Carbon Dioxide 24.6 meq/L (21.0-32.0); Chloride 108 meq/L (98-107); Glomerular Filtration Rate Greater Than 89 mL/min (>89); Glucose,Random 113 mg/dL (74-106); Sodium 142 meq/L (136-145)
[2017-11-12] MEDS: Carvedilol 6.25 MG Tablet PO SCH (09:52)
== END 2017-11-12 11:44 | disposition home or self-care (01) ==
LOC: NEDA 14:38 → NEPE 14:38 → NEPHCDU 14:38 → NEDA 11-12 00:43 → NEPHCDU 11-12 01:50
PROVIDERS: ADMIT Internal Medicine; ATTEND Internal Medicine

== ENCOUNTER 2018-03-14 11:14 | Inpatient (IN) ==
[2018-03-14] MEDS ORDERED: Gadobutrol PF 7.5 MMOL/7.5 ML Vial (for RAD) IV.SIG ONE (11:15)
[2018-03-14 12:41] LABS: Baso # (Auto) 0.1 th/mm3 (0.0-0.2); Baso % (Auto) 0.6 % (0.0-2.0); Eos # (Auto) 0.1 th/mm3 (0.0-0.4); Eos % (Auto) 0.4 % (0.0-4.0); Hematocrit 32.4 % (39.0-51.0); Hemoglobin 10.9 gm/dL (13.0-17.0); Lymph # (Auto) 1.2 th/mm3 (1.0-4.8); Lymph % (Auto) 7.4 % (9.0-44.0); Mean Corpuscular HGB Conc 33.6 % (32.0-36.0); Mean Corpuscular Hemoglobin 25.8 pg (27.0-34.0); Mean Corpuscular Volume 76.9 fL (80.0-100.0); Mean Platelet Volume 9.2 fL (7.0-11.0); Mono # (Auto) 0.8 th/mm3 (0.0-0.9); Mono % (Auto) 4.7 % (0.0-8.0); Neut # (Auto) 14.5 th/mm3 (1.8-7.7); Neut % (Auto) 86.9 % (16.0-70.0); Platelet Count 229 th/mm3 (150-450); Red Blood Count 4.21 mil/mm3 (4.50-5.90); Red Cell Distribution Width 19.1 % (11.6-17.2); White Blood Count 16.7 th/mm3 (4.0-11.0)
[2018-03-14 12:49] LABS: Activated Partial Thrombo Time 22.9 sec (23.4-31.7); Prothrombin Time 10.5 sec (9.8-11.6)
[2018-03-14] MEDS ORDERED: Morphine Inj 4 MG/ML Vial IV.PUSH ONE (12:58)
[2018-03-14 13:01] LABS: Alanine Aminotransferase 69 U/L (12-78); Albumin 2.5 g/dL (3.4-5.0); Anion Gap 7 meq/L (5-15); Aspartate Aminotransferase 122 U/L (15-37); Blood Urea Nitrogen 16 mg/dL (7-18); Calcium 8.1 mg/dL (8.5-10.1); Chloride 103 meq/L (98-107); Glomerular Filtration Rate 70 mL/min (>89); Glucose,Random 154 mg/dL (74-106); Sodium 139 meq/L (136-145)
[2018-03-14 13:02] LABS: Potassium 3.3 meq/L (3.5-5.1)
[2018-03-14 13:03] LABS: Alkaline Phosphatase 168 U/L (45-117)
[2018-03-14] MEDS ORDERED: Vancomycin Inj 1,000 MG in Sodium Chlor 0.9% Inj 250 ML IV.SIG ONE (13:19)
[2018-03-14] MEDS ORDERED: Piperacil/Tazo 4.5 GM Premix 4.5 GM/100 ML BAG IV.SIG ONE (13:19)
--- NOTE | 2018-03-14 14:04 | ED ---
HPI General Chief complaint: Extremity Injury, Upper Stated complaint: hand pain Time Seen by Provider: 03/14/18 12:14 History of Present Illness HPI narrative: Patient is a 62-year-old male presents emergency department for evaluation of left hand pain and swelling as well as redness for the past few days. Patient states that several days ago he fell into a thorn hernandez and had multiple thorns in his left hand. He states since then has been gradually getting worse and having increased pain. Patient has a history of liver cancer and states that he is only got a few months to live. He is not currently on any chemotherapy according to him. He denies any chest pain shortness of breath fevers cough or congestion but states the pain has been gradually traveling up his arm and now is all the way up into his shoulder and the redness is grasping his hand up into the left mid arm. Related Data Home Medications Medication Instructions Recorded Confirmed aspirin 81 mg PO DAILY 11/11/17 03/14/18 atorvastatin 40 mg PO DAILY 11/11/17 03/14/18 clonidine HCl 0.1 mg PO DAILY 11/11/17 03/14/18 hydromorphone 4 mg PO 5 TIMES A DAY PRN 11/11/17 03/14/18 nitroglycerin 0.4 mg SUBLINGUAL Q5-15M PRN 11/11/17 03/14/18 potassium chloride 40 meq PO BID 11/11/17 03/14/18 ticagrelor [Brilinta] 90 mg PO BID 11/11/17 03/14/18 naloxone [Narcan] 1 spray INTRANASAL Q2-3M PRN 03/14/18 03/14/18 prednisone 5 mg PO DIRECTED 03/14/18 03/14/18 Previous Rx's Medication Instructions Recorded ondansetron [Zofran ODT] 4 mg PO Q6H PRN #24 tab 11/12/17 Allergies Allergy/AdvReac Type Severity Reaction Status Date / Time No Known Allergies Allergy Verified 10/19/17 17:19 Review of Systems ROS: all other systems reviewed are negative [facility] Family History Family History Other Osteoarthritis Social History Social History Substance History: Past History Second Hand Smoke Exposure: Yes Smoking Status: Current every day smoker Tobacco Type: Cigarettes How Often Do You Have a Drink Containing Alcohol: Never Recent Travel in [facility] within the Last 8 Weeks: No Recent Out of Country Travel within the Last 8 Weeks: No Substance Abuse Detail Alcohol: Substance Use Status: Sustained Remission Route Used Substance Abuse: By Mouth Substance Frequency: previous heavy daily drinker Last Used: 5 years ago Immunization History Tetanus Immunization: Unsure Exam Narrative Exam Narrative: GENERAL: Well-developed very thin and malnourished male in no obvious distress. SKIN: There are scattered scabs on the patient including the face. Cellulitis as described below and musculoskeletal. HEAD: Atraumatic. Normocephalic. EYES: Pupils equal and round. No scleral icterus. No injection or drainage. ENT: No nasal bleeding or discharge. Mucous membranes pink and moist. NECK: Trachea midline. No JVD. CARDIOVASCULAR: Regular rate and rhythm. No murmur appreciated. RESPIRATORY: No accessory muscle use. Clear to auscultation. Breath sounds equal bilaterally. GASTROINTESTINAL: Abdomen soft, non-tender, nondistended. Hepatic and splenic margins not palpable. MUSCULOSKELETAL: No obvious deformities. No clubbing. No cyanosis. Patient has a fair amount of swelling about the left hand and progressing across the left wrist. These areas are warm to palpation. Patient does have significant pain when he tries to range his left wrist. There is some bony tenderness as well. No obvious drainable fluid collection. No obvious foreign body underneath the skin or within the skin itself NEUROLOGICAL: Awake and alert. No obvious cranial nerve deficits. Motor grossly within normal limits. Normal speech. PSYCHIATRIC: Appropriate mood and affect; insight and judgment normal. Course Initial Documented Vital Signs Temperature 98.2 F 03/14/18 11:33 Pulse Rate 79 03/14/18 11:33 Respiratory Rate 17 03/14/18 11:33 Blood Pressure 177/99 H 03/14/18 11:33 Pulse Oximetry 99 03/14/18 11:33 Last Documented Vital Signs Temperature 98.2 F 03/14/18 11:33 Pulse Rate 75 03/14/18 13:16 Respiratory Rate 18 03/14/18 15:59 Blood Pressure 165/90 H 03/14/18 13:16 Pulse Oximetry 99 03/14/18 11:33 Medical Decision Making MDM Narrative Medical decision making narrative: Patient could have a retained foreign body leading to a cellulitis, less likely is septic arthritis. Osteomyelitis needs exclusion as well. For these reasons I ordered an MRI of his left hand. We will then have discussed the patient's ongoing goals of therapy and treatment. I think he is a candidate for admission but if he is adamant to go home we could consider treating him as an outpatient though I do not think this is ideal. patient's labs are returning and shows near 17 thousand wbc, ESR and CRP are significantly elevated. The patient also does have elevation in creatinine over the baseline. His last creatinine in October was 0.79 and today is 1.07. Patient was started on empiric vancomycin and Zosyn IV, morphine and Dilaudid had to be given for pain control. Patient also ordered for MRI and MRI is pending at the time of admission. Discussed with Dr. Daniel who is agreeable. MRI of the hand is still pending at the time of admission. The imaging have is been performed and I see no gas pockets. I think the patient is unlikely for necrotizing fasciitis. I think this is just advancing cellulitis. Pending MRI was discussed with Dr. Daniel. Medical Screen Exam Complete: Yes Emergency Medical Condition: Yes Lab Data Result diagrams: 03/14/18 12:00 03/14/18 12:00 Lab Results 03/14/18 03/14/18 03/14/18 Range/Units 12:00 12:00 12:00 WBC 16.7 H (4.0-11.0) th/mm3 RBC 4.21 L (4.50-5.90) mil/mm3 Hgb 10.9 L (13.0-17.0) gm/dL Hct 32.4 L (39.0-51.0) % MCV 76.9 L (80.0-100.0) fL MCH 25.8 L (27.0-34.0) pg MCHC 33.6 (32.0-36.0) % RDW 19.1 H (11.6-17.2) % Plt Count 229 (150-450) th/mm3 MPV 9.2 (7.0-11.0) fL Neut % (Auto) 86.9 H (16.0-70.0) % Lymph % (Auto) 7.4 L (9.0-44.0) % [place] % (Auto) 4.7 (0.0-8.0) % Eos % (Auto) 0.4 (0.0-4.0) % Baso % (Auto) 0.6 (0.0-2.0) % Neut # (Auto) 14.5 H (1.8-7.7) th/mm3 Lymph # (Auto) 1.2 (1.0-4.8) th/mm3 [place] # (Auto) 0.8 (0.0-0.9) th/mm3 Eos # (Auto) 0.1 (0.0-0.4) th/mm3 Baso # (Auto) 0.1 (0.0-0.2) th/mm3 WBC Differential . Differential Comment Auto diff final ESR (0-20) mm/hr PT 10.5 (9.8-11.6) sec INR 1.0 Ratio APTT 22.9 L (23.4-31.7) sec Sodium 139 (136-145) meq/L Potassium 3.3 L (3.5-5.1) meq/L Chloride 103 (98-107) meq/L Carbon Dioxide 29.0 (21.0-32.0) meq/L Anion Gap 7 (5-15) meq/L BUN 16 (7-18) mg/dL Creatinine 1.07 (0.60-1.30) mg/dL Estimated GFR 70 L (>89) mL/min Random Glucose 154 H (74-106) mg/dL Lactic Acid (0.4-2.0) mmol/L Calcium 8.1 L (8.5-10.1) mg/dL Total Bilirubin 0.9 (0.2-1.0) mg/dL AST 122 H (15-37) U/L ALT 69 (12-78) U/L Alkaline Phosphatase 168 H (45-117) U/L C-Reactive Protein (0.00-0.30) mg/dL Total Protein 8.0 (6.4-8.2) g/dL Albumin 2.5 L (3.4-5.0) g/dL 03/14/18 03/14/18 03/14/18 Range/Units 13:35 13:38 13:39 WBC (4.0-11.0) th/mm3 RBC (4.50-5.90) mil/mm3 Hgb (13.0-17.0) gm/dL Hct (39.0-51.0) % MCV (80.0-100.0) fL MCH (27.0-34.0) pg MCHC (32.0-36.0) % RDW (11.6-17.2) % Plt Count (150-450) th/mm3 MPV (7.0-11.0) fL Neut % (Auto) (16.0-70.0) % Lymph % (Auto) (9.0-44.0) % [place] % (Auto) (0.0-8.0) % Eos % (Auto) (0.0-4.0) % Baso % (Auto) (0.0-2.0) % Neut # (Auto) (1.8-7.7) th/mm3 Lymph # (Auto) (1.0-4.8) th/mm3 [place] # (Auto) (0.0-0.9) th/mm3 Eos # (Auto) (0.0-0.4) th/mm3 Baso # (Auto) (0.0-0.2) th/mm3 WBC Differential Differential Comment ESR Greater than 140 H (0-20) mm/hr PT (9.8-11.6) sec INR Ratio APTT (23.4-31.7) sec Sodium (136-145) meq/L Potassium (3.5-5.1) meq/L Chloride (98-107) meq/L Carbon Dioxide (21.0-32.0) meq/L Anion Gap (5-15) meq/L BUN (7-18) mg/dL Creatinine (0.60-1.30) mg/dL Estimated GFR (>89) mL/min Random Glucose (74-106) mg/dL Lactic Acid 1.8 (0.4-2.0) mmol/L Calcium (8.5-10.1) mg/dL Total Bilirubin (0.2-1.0) mg/dL AST (15-37) U/L ALT (12-78) U/L Alkaline Phosphatase (45-117) U/L C-Reactive Protein 12.00 H (0.00-0.30) mg/dL Total Protein (6.4-8.2) g/dL Albumin (3.4-5.0) g/dL Discharge Plan Discharge Disposition Patient Disposition: 30 Still Patient Discharge Condition Condition: Stable Discharge Details Diagnosis: Cellulitis and abscess of hand Physicians Team ED Provider: Stephan Rome Primary Care Provider: UNKNOWN, Attending Provider: Brian Daniel Other Providers: Viktor Mix Status ED Status: Admitted Patient
[2018-03-14] MEDS ORDERED: Tetanus/Diphtheria Toxoid Adult Vaccine Inj 0.5 ML Vial IM ONE (14:41)
[2018-03-14] MEDS ORDERED: HYDROmorphone PF Inj 2 MG/ML Vial IV.PUSH ONE (14:41)
[2018-03-14] MEDS ORDERED: Acetaminophen 325 MG Tablet PO PRN (15:00)
[2018-03-14] MEDS ORDERED: Vancomycin Consult Pharmacy OTHER PRN (15:02)
[2018-03-14] MEDS ORDERED: Nitroglycerin SL (Override) 0.4 MG Tab SL PRN (15:43)
[2018-03-14] MEDS ORDERED: predniSONE 5 MG Tablet PO SCH (15:45)
--- NOTE | 2018-03-14 15:47 | P.HPIM ---
History of Present Illness Primary Care Physician: UNKNOWN History of Present Illness: Mr. Olivera is a 62-year-old male. He says earlier this week he fell into a thorn hernandez. He feels that 1 of the thorns stuck in deep in his left forearm and it felt like it was down to the bone. 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 He has had a gradual increase in swelling, redness, and pain at his left forearm. Clear evidence for cellulitis is present. MRI is pending to evaluate for abscess or osteomyelitis. No other complaints from the patient at this time. At baseline he also has coronary artery disease and has a previous myocardial infarction. He says he takes nitroglycerin as needed for this condition. He is not reporting any chest pain at this time or recently. Inpatient Certification: I certify that the inpatient services were ordered in accordance with Medicare regulations governing the order. This includes certification that hospital inpatient services are reasonable and necessary and in the case of services not specified as inpatient-only under 42 CFR 419.22(n), that they are appropriately provided as inpatient services in accordance to with the 2-midnight benchmark under 43 CFR 412.3(e) Estimated Total Length of Stay (Days): 3 Plans for Post Hospital Care: Home Review of Systems Constitutional: No fevers, no chills no night sweats, no fatigue, no weakness Eyes: No eye pain, no blurry vision, no loss of vision ENT: No sore throat, no ear pain, no rhinorrhea Cardiovascular: No chest pain, no tachycardia, no palpitations, no syncope Respiratory: No wheezing, no cough, no shortness of breath Gastrointestinal: No abdominal pain, no black tarry stools, no bright red blood per rectum, no vomiting, no diarrhea Musculoskeletal: Joint pain and tenderness at left forearm, no muscle cramps, no stiffness Integumentary: No rash, no ulcers, no drainage, erythema left forearm Neurologic: No sensory loss, no loss of motor function, no dizziness Psychiatric: No behavioral changes, no hallucinations, no suicidal ideations PMFSH - History History Provided By: Patient - Medical History Medical History: Medical History (Last Reviewed 11/12/17 @ 09:05 by Evans Jones) Angina pectoris Anxiety Cardiac catheterization as the cause of abnormal reaction of the patient, or of later complication, without mention of misadventure at the time of the procedure Chest pain Chronic pain Decreased vision Depression Dizziness Hepatitis C History of MRSA infection Hypertension Light-headedness Liver cancer Lung cancer Migraine Shortness of breath Skin cancer - Surgical History Surgical History: Surgical History (Last Reviewed 11/12/17 @ 09:05 by Evans Jones) Hx of cardiac cath - Family History Family History: Family History (Last Updated 03/14/18 @ 15:41 by Brian Daniel MD) Other Osteoarthritis - Tobacco History Second Hand Smoke Exposure: Yes Tobacco Use In Past 30 Days: Yes Smoking Status: Current every day smoker Tobacco Type: Cigarettes - Alcohol History How Often Do You Have a Drink Containing Alcohol: Never - Substance Use History Substance History: Past History - Substance Use Type Alcohol Status: Sustained Remission Route Used: By Mouth Frequency: previous heavy daily drinker Last Used: 5 years ago - Travel History Recent Travel in the [facility] Within the Last 8 Weeks: No Recent Travel Out of the Country Within the Last 8 Weeks: No - Immunization History Tetanus Immunization: Unsure Medications and Allergies Active Medications: Active Medications Acetaminophen (Tylenol) 650 mg PO Q4H PRN PRN Reason: Temp > 100.4 Al Hydroxide/Mg Hydroxide (Milk Of Sydnee Liq) 30 ml PO Q12H PRN PRN Reason: Mild Constipation Hydromorphone HCl (Dilaudid Pf Inj) 1 mg IV.PUSH Q4H PRN PRN Reason: BREAKTHROUGH PAIN Vancomycin HCl 1,000 mg/ (Sodium Chloride) 250 mls @ 250 mls/hr IV.SIG Q12H LAY Piperacillin/Tazobactam/Dextrose (Zosyn 3.375 Gm Premix) 50 mls @ 100 mls/hr IV.SIG Q8HR LAY Lactobacillus Acidophilus (Lactinex) 1 tab PO TID LAY Ondansetron HCl (Zofran Inj) 4 mg IV.PUSH Q6H PRN PRN Reason: NAUSEA OR VOMITING Oxycodone/Acetaminophen (Percocet 10/325 Mg) 1 tab PO Q4H PRN PRN Reason: Pain 7 to 10 Oxycodone/Acetaminophen (Percocet 5/325 Mg) 1 tab PO Q4H PRN PRN Reason: Pain 3 to 6 Pharmacy Profile Note (Vancomycin Consult Pharmacy) 1 each OTHER UNSCH PRN PRN Reason: Pharmacy to dose Allergies Allergy/AdvReac Type Severity Reaction Status Date / Time No Known Allergies Allergy Verified 10/19/17 17:19 Home Medications Medication Instructions Recorded Confirmed Type aspirin 81 mg PO DAILY 11/11/17 03/14/18 History atorvastatin 40 mg PO DAILY 11/11/17 03/14/18 History clonidine HCl 0.1 mg PO DAILY 11/11/17 03/14/18 History hydromorphone 4 mg PO 5 TIMES A DAY PRN 11/11/17 03/14/18 History nitroglycerin 0.4 mg SUBLINGUAL Q5-15M PRN 11/11/17 03/14/18 History potassium chloride 40 meq PO BID 11/11/17 03/14/18 History ticagrelor [Brilinta] 90 mg PO BID 11/11/17 03/14/18 History naloxone [Narcan] 1 spray INTRANASAL Q2-3M PRN 03/14/18 03/14/18 History prednisone 5 mg PO DIRECTED 03/14/18 03/14/18 History Exam Vital signs: Vital Signs 03/14/18 11:33 03/14/18 13:16 03/14/18 13:59 Temperature 98.2 F Pulse Rate 79 75 Respiratory Rate 18 Blood Pressure 177/99 H 165/90 H Pulse Oximetry 99 Intake & Output 03/13/18 03/14/18 03/14/18 18:59 06:59 18:59 Intake Total 100 / 100 Balance 100 / 100 Weight 52.163 kg Intake: IV 100 / 100 Zosyn 4.5 GM Premix 4.5 gm In 100 / 100 100 ml @ 200 mls/hr IV.SIG ONCE ONE Rx#:[id number] Narrative: GENERAL: NAD, A&Ox3 HEAD: Normocephalic. NECK: Supple, trachea midline. No lymphadenopathy. EYES: No scleral icterus. No injection or drainage. CARDIOVASCULAR: Regular rate and rhythm without murmurs, gallops, or rubs. RESPIRATORY: Breath sounds equal bilaterally. No accessory muscle use. GASTROINTESTINAL: Abdomen soft, non-tender, nondistended. MUSCULOSKELETAL: No cyanosis, or edema. SKIN: Warm and dry. Multiple lesions on face and forearms related to skin cancer. Left forearm has induration and erythema from the forearm to the hand. NEURO: No focal neurological deficits. Results - Labs CBC & Chem 7: 03/14/18 12:00 03/14/18 12:00 Labs: Short CBC 03/14/18 Range/Units 12:00 WBC 16.7 H (4.0-11.0) th/mm3 Hgb 10.9 L (13.0-17.0) gm/dL Hct 32.4 L (39.0-51.0) % Plt Count 229 (150-450) th/mm3 BMP 03/14/18 12:00 Sodium 139 Potassium 3.3 L Chloride 103 Carbon Dioxide 29.0 BUN 16 Creatinine 1.07 Calcium 8.1 L Liver Function 03/14/18 Range/Units 12:00 Total Bilirubin 0.9 (0.2-1.0) mg/dL AST 122 H (15-37) U/L ALT 69 (12-78) U/L Alkaline Phosphatase 168 H (45-117) U/L Albumin 2.5 L (3.4-5.0) g/dL Caprini VTE Risk Assessment Caprini VTE Risk Assessment: Moderate/High Risk (score >= 2) Caprini Risk Assessment Model: Point Value = 1 Point Value = 2 Point Value = 3 Point Value = 5 Age 41-60 Minor surgery BMI > 25 kg/m2 Swollen legs Varicose veins or History of unexplained or recurrent spontaneous Oral contraceptives or hormone replacement Sepsis (< 1 month) Serious lung disease, including pneumonia (< 1 month) Abnormal pulmonary function Acute myocardial infarction Congestive heart failure (< 1 month) History of inflammatory bowel disease Medical patient at bed rest Age 61-74 Arthroscopic surgery Major open surgery (> 45 min) Laparoscopic surgery (> 45 min) Malignancy Confined to bed (> 72 hours) Immobilizing plaster cast Central venous access Age >= 75 History of VTE Family history of VTE Factor V Leiden Prothrombin [id number] Lupus anticoagulant Anticardiolipin antibodies Elevated serum homocysteine Heparin-induced thrombocytopenia Other congenital or acquired thrombophilia Stroke (< 1 month) Elective arthroplasty Hip, pelvis, or leg fracture Acute spinal cord injury (< 1 month) Prophylaxis Regimen: Total Risk Factor Score Risk Level Prophylaxis Regimen 0-1 Low Early ambulation 2 Moderate Order ONE of the following: *Sequential Compression Device (SCD) *Heparin 5000 units SQ BID 3-4 Higher Order ONE of the following medications: *Heparin 5000 units SQ TID *Enoxaparin/Lovenox 40 mg SQ daily (WT < 150 kg, CrCl > 30 mL/min) *Enoxaparin/Lovenox 30 mg SQ daily (WT < 150 kg, CrCl > 10-29 mL/min) *Enoxaparin/Lovenox 30 mg SQ BID (WT < 150 kg, CrCl > 30 mL/min) AND/OR *Sequential Compression Device (SCD) 5 or more Highest Order ONE of the following medications: *Heparin 5000 units SQ TID (Preferred with Epidurals) *Enoxaparin/Lovenox 40 mg SQ daily (WT < 150 kg, CrCl > 30 mL/min) *Enoxaparin/Lovenox 30 mg SQ daily (WT < 150 kg, CrCl > 10-29 mL/min) *Enoxaparin/Lovenox 30 mg SQ BID (WT < 150 kg, CrCl > 30 mL/min) AND *Sequential Compression Device (SCD) Assessment and Plan - Plan 62-year-old male admitted secondary to left forearm cellulitis from a thorn stick. Immunocompromise state present related to liver cancer. Left forearm cellulitis Vancomycin Zosyn Consult ID Probiotics Percocet for pain Dilaudid for breakthrough pain Liver cancer Skin cancer Lung Cancer Terminal Continue Nexavar [place] Coronary artery disease Continue as needed nitroglycerin Follow telemetry Continue aspirin Continue Brilinta Hypertension Continue baseline treatment Follow blood pressures Adjust treatments as needed Hepatitis C Standard precautions Anxiety/depression Follow clinically No exacerbations at this time DVT Prophylaxis SCDs Continue Brilinta and Aspirin
[2018-03-14] MEDS: oxyCODONE/Acetaminophen 10/325 Tablet PO PRN ×2 (16:09→20:33)
[2018-03-14] MEDS: predniSONE 20 MG Tablet PO SCH (16:47)
--- NOTE | 2018-03-14 17:16 | MR ---
EXAM DATE: 03/14/2018 2:25 PM EST AGE/SEX: 62 years / Male INDICATIONS: Osteomyelitis. Pain and swelling in left hand, wrist and arm. CLINICAL DATA: This is the patient's initial encounter. Patient reports that signs and symptoms have been present for 1 day and indicates a pain score of 5/10. MEDICAL/SURGICAL HISTORY: Hypertension. Carcinoma, lung. Metastatic disease. Coronary artery stent. COMPARISON: No prior exams available for comparison. TECHNIQUE: Multiplanar, multisequence MRI examination was performed without contrast and after the i ntravenous administration of 5 ml Gadavist (gadobutrol) contrast as a single exam dose. FINDINGS: Dorsal predominant subcutaneous edema seen of the left hand. Small extensor tendon sheath fluid noted , mostly extensor compartment 2 and 3 without significant enhancement. No organized or drainable flui d. No tendon tears. No fractures or subluxations of the left hand. Very mild osteoarthritis seen of the third metacarpal phalangeal joint. There are no signal changes of osteomyelitis. Nothing to suggest an infectious arth ropathy. CONCLUSION: 1. No abscess or osteomyelitis of the left hand. 2. Nonspecific dorsal predominant cellulitis. 3. Mild tenosynovitis of extensor compartments 2 and 3. Electronically signed by: Dread Sanchez MD 03/14/2018 5:15 PM EST
[2018-03-14] MEDS: HYDROmorphone PF Inj 2 MG/ML Vial IV.PUSH PRN ×2 (18:34→22:32)
[2018-03-14] MEDS: Lactobacillus Acidophilus/L. Spores Tablet PO SCH (18:34)
[2018-03-14] MEDS ORDERED: Influenza (Quadrivalent) Vaccine 0.5 ML Syringe IM ONE (20:00)
[2018-03-14] MEDS: Piperacil/Tazo 3.375 GM Premix 50 ML IV.SIG SCH (22:32)
[2018-03-15] MEDS: oxyCODONE/Acetaminophen 10/325 Tablet PO PRN ×6 (01:13→22:38)
[2018-03-15] MEDS: Vancomycin Inj 1,000 MG in Sodium Chlor 0.9% Inj 250 ML IV.SIG SCH ×2 (04:09→15:40)
[2018-03-15] MEDS: HYDROmorphone PF Inj 2 MG/ML Vial IV.PUSH PRN ×5 (04:13→21:05)
[2018-03-15] MEDS: Piperacil/Tazo 3.375 GM Premix 50 ML IV.SIG SCH ×3 (05:36→21:07)
[2018-03-15] MEDS: Lactobacillus Acidophilus/L. Spores Tablet PO SCH ×3 (08:05→18:26)
[2018-03-15] MEDS: predniSONE 20 MG Tablet PO SCH (08:06)
--- NOTE | 2018-03-15 16:16 | MB ---
cc: Viktor Mix MD DATE: 03/15/2018 REQUESTING PHYSICIAN: Dr. Brian Daniel. REASON: Cellulitis of the left hand. The patient is immunocompromised related to liver cancer and chemo. HISTORY OF PRESENT ILLNESS: This is a 62-year-old white male with history of end-stage liver disease. The patient presented to the emergency department on 03/14/2018 with pain and swelling and redness of his left arm. He reports that this had been ongoing for the past few days. He fell into a thorn hernandez and had multiple thorn pokes to the hand. He did go to the point where the pain was severe and he also has difficulty closing the right fist. The patient reports that he has terminal cancer and was told that he only had a few months to live. He reports that he is on oral chemotherapy for cancer of the liver. He also has lung cancer which was treated with radiation. His white blood cell count is elevated. This consultation is requested for antibiotic treatment. An MRI was performed and it showed no abscess or osteomyelitis. Nonspecific dorsal predominant cellulitis is noted. Mild tenosynovitis of the extensor compartment 2 and 3 was noted as well. The patient is afebrile. He denies chills. He is currently upright in bed, eating with his right hand. He states that the pain is very severe, 10/10 scale. PAST MEDICAL HISTORY: Anxiety, depression, hepatitis C, hypertension, lung cancer, liver cancer, skin cancer, history of cardiac catheterization. ALLERGIES: NO KNOWN DRUG ALLERGIES. MEDICATIONS: Piperacillin/tazobactam, vancomycin, prednisone, Brilinta, potassium, Percocet 5, Lactinex, Lipitor, Dilaudid, aspirin. SOCIAL HISTORY: Positive tobacco. No alcohol. No illicit drugs. FAMILY HISTORY: Noncontributory. REVIEW OF SYSTEMS: Significant for pain in the left hand and left arm, otherwise negative. PHYSICAL EXAMINATION: GENERAL: This is a very slender male who appears cachectic. VITAL SIGNS: Includes temperature of 97.6, BP 174/89, respirations 14, heart rate 58. HEENT: Head is atraumatic. Extraocular movements grossly intact. Pupils reactive to light. No icterus. The patient has multiple excoriated lesions of the face and head. Oropharynx moist mucosa without lesions. NECK: No adenopathy or swelling. LUNGS: Decreased breath sounds bilaterally. HEART: Regular S1 and S2. ABDOMEN: Flat, soft, no tenderness. RECTAL: Not performed. EXTREMITIES: Diffuse muscle wasting. The left hand is swollen and very tender on palpation at the wrist and the dorsum of the hand and distal forearm. There is mild erythema along the inner wrist area. There is some tiny white pustules which is in a group. Decreased motion at the wrist. Severe tenderness on palpation and increased warmth. The other extremities have no clubbing, cyanosis, or edema. SKIN: No rash. NEUROLOGIC: No gross focal findings. PSYCHIATRIC: The patient is calm and cooperative. LABORATORY DATA: WBC 16.7, platelets 229, 86% neutrophils, 7% lymphocytes, hemoglobin 10.9, creatinine 1.07, estimated GFR 70. Blood cultures no growth in 1 day. IMPRESSION: Cellulitis of the left hand and left arm following thorn hernandez injury. No abscess noted on MRI of the hand. RECOMMENDATIONS: 1. Continue vancomycin. 2. Continue piperacillin/tazobactam. 3. Follow blood cultures. 4. Monitor response of the wound to current antibiotic treatment. Thank you for this consultation. The patient's progress will be monitored and further recommendations will be made on phone followup if necessary. MD ANT Lomas/sunni , 12:59 PM , 01:10 PM SHANTELLE
--- NOTE | 2018-03-15 16:18 | P.PNIM ---
Subjective Interval history: 62yo m admitted with left forearm cellulitis post injury by a sukumar hernandez pt seen and examined doing fair, he is having a significant amout of pain in the left hand, no sob, no cp, no nv Physical Exam Vital signs: Last Vital Signs Temp 97.8 F 03/15/18 12:00 Pulse 58 L 03/15/18 12:00 Resp 15 03/15/18 12:00 BP 160/85 H 03/15/18 12:00 Pulse Ox 95 03/15/18 12:00 Intake & Output 03/13/18 03/14/18 03/15/18 03/16/18 06:59 06:59 06:59 06:59 Intake Total 1180 / 1180 350 / 350 Output Total 400 / 400 Balance 780 / 780 350 / 350 Weight 52 kg chronically ill appearing and debilitated 62yo m aaox3 muliple abrasions to face and arms heart s1s2 reg lungs clear no wrr abd firm mod tender min dt, pos bs, ext left upper ext dosal hand w sig alicia and erythema, no localized open wound though multiple abrasions, no focal abscess, cant flex fingers due to pain / edema Results Labs CBC & Chem 7: 03/14/18 12:00 03/14/18 12:00 Labs: Microbiology 03/14/18 13:00 Blood - Peripheral Aerobic Blood Culture - Preliminary No growth in 1 day 03/14/18 13:00 Blood - Peripheral Anaerobic Blood Culture - Preliminary No growth in 1 day 03/14/18 13:11 Blood - Peripheral Aerobic Blood Culture - Preliminary No growth in 1 day 03/14/18 13:11 Blood - Peripheral Anaerobic Blood Culture - Preliminary No growth in 1 day Imaging Imaging: Impressions Hand MRI 03/14/18 13:15 CONCLUSION: 1. No abscess or osteomyelitis of the left hand. 2. Nonspecific dorsal predominant cellulitis. 3. Mild tenosynovitis of extensor compartments 2 and 3. Assessment and Plan Plan ACUTE CELLULITIS LEFT HAND w TENOSYNOVITIS of extenso compartments 2/3 - mri w no abscess, or osteo, cont iv abx, pain control and ID consult, ryan vincent for now. LIVER CANCER end stage on salvage NEXVAR, fu w onc CAD w prior [place] cont home meds DYSLIPIDEMIA on statin HTN contorlled CHRONIC HEP C ANEMIA - likely chronic HYPOKALEMIA - replace per protocol TOBACCO ABUSE / nicotine addiction - nicodersimon, cesation counseling Progress Note: Quality VTE Deep Vein Thrombosis/Pulmonary Embolism Present on Admission: No
--- NOTE | 2018-03-15 20:45 | P.PN ---
Subjective Interval history: not seen Physical Exam Vital signs: Vital Signs 03/14/18 22:32 03/14/18 23:06 03/15/18 00:00 Temperature 98.1 F Pulse Rate 68 Respiratory Rate 20 20 17 Blood Pressure 157/86 H Pulse Oximetry 100 03/15/18 02:39 03/15/18 04:45 03/15/18 05:41 Temperature 98.1 F Pulse Rate 68 Respiratory Rate 20 17 18 Blood Pressure 168/95 H Pulse Oximetry 98 03/15/18 06:45 03/15/18 08:00 03/15/18 12:00 Temperature 97.6 F 97.8 F Pulse Rate 58 L 58 L Respiratory Rate 20 14 15 Blood Pressure 174/89 H 160/85 H Pulse Oximetry 97 95 03/15/18 16:00 03/15/18 20:00 Temperature 98.4 F 97.7 F Pulse Rate 69 58 L Respiratory Rate 14 16 Blood Pressure 144/75 H 143/81 H Pulse Oximetry 97 97 Intake & Output 03/15/18 03/15/18 03/16/18 06:59 18:59 06:59 Intake Total 830 / 830 1800 / 1800 Output Total 1000 / 1000 Balance 830 / 830 800 / 800 Weight 52 kg Intake: IV 50 / 50 600 / 600 Zosyn 3.375 GM Premix 50 ML @ 50 / 50 100 / 100 100 mls/hr IV.SIG Q8HR LAY Rx#: [id number] Vancomycin Inj 1,000 MG In NS 500 / 500 Inj 250 ML @ 250 mls/hr IV.SIG Q12H LAY Rx#:[id number] Oral 780 / 780 1200 / 1200 Output: Urine 1000 / 1000 Other: # Voids 2 Date of Last Bowel Movement 03/13/18 # Bowel Movements 1 Narrative: chronically ill appearing and debilitated 62yo m aaox3 muliple abrasions to face and arms heart s1s2 reg lungs clear no wrr abd firm mod tender min dt, pos bs, ext left upper ext dosal hand w sig alicia and erythema, no localized open wound though multiple abrasions, no focal abscess, cant flex fingers due to pain / edema Results - Labs CBC & Chem 7: 03/14/18 12:00 03/14/18 12:00 Microbiology 03/14/18 13:00 Blood - Peripheral Aerobic Blood Culture - Preliminary No growth in 1 day 03/14/18 13:00 Blood - Peripheral Anaerobic Blood Culture - Preliminary No growth in 1 day 03/14/18 13:11 Blood - Peripheral Aerobic Blood Culture - Preliminary No growth in 1 day 03/14/18 13:11 Blood - Peripheral Anaerobic Blood Culture - Preliminary No growth in 1 day - Imaging ITS Impressions Hand MRI 03/14/18 13:15 CONCLUSION: 1. No abscess or osteomyelitis of the left hand. 2. Nonspecific dorsal predominant cellulitis. 3. Mild tenosynovitis of extensor compartments 2 and 3. - Procedures none Assessment and Plan - Plan ACUTE CELLULITIS LEFT HAND w TENOSYNOVITIS of extenso compartments 2/3 - mri w no abscess, or osteo, cont iv abx, pain control and ID consult, ryan vincent for now. LIVER CANCER end stage on salvage NEXVAR, fu w onc CAD w prior [place] cont home meds DYSLIPIDEMIA on statin HTN controslled CHRONIC HEP C ANEMIA - likely chronic HYPOKALEMIA - replace per protocol TOBACCO ABUSE / nicotine addiction - nicoderm, cesation counseling
[2018-03-16] MEDS: HYDROmorphone PF Inj 2 MG/ML Vial IV.PUSH PRN ×4 (01:32→13:50)
[2018-03-16] MEDS: Vancomycin Inj 1,000 MG in Sodium Chlor 0.9% Inj 250 ML IV.SIG SCH ×2 (03:01→17:08)
[2018-03-16] MEDS: oxyCODONE/Acetaminophen 10/325 Tablet PO PRN ×4 (03:01→14:53)
[2018-03-16] MEDS: Piperacil/Tazo 3.375 GM Premix 50 ML IV.SIG SCH ×4 (04:51→21:30)
[2018-03-16 07:43] LABS: Baso % (Auto) 0.2 % (0.0-2.0); Eos # (Auto) 0.1 th/mm3 (0.0-0.4); Eos % (Auto) 0.5 % (0.0-4.0); Hematocrit 30.8 % (39.0-51.0); Hemoglobin 9.7 gm/dL (13.0-17.0); Lymph # (Auto) 1.1 th/mm3 (1.0-4.8); Mean Corpuscular HGB Conc 31.7 % (32.0-36.0); Mean Corpuscular Hemoglobin 24.5 pg (27.0-34.0); Mean Corpuscular Volume 77.5 fL (80.0-100.0); Mean Platelet Volume 9.2 fL (7.0-11.0); Mono # (Auto) 0.7 th/mm3 (0.0-0.9); Mono % (Auto) 5.9 % (0.0-8.0); Neut # (Auto) 10.1 th/mm3 (1.8-7.7); Neut % (Auto) 84.4 % (16.0-70.0); Platelet Count 205 th/mm3 (150-450); Red Blood Count 3.97 mil/mm3 (4.50-5.90); Red Cell Distribution Width 18.8 % (11.6-17.2); White Blood Count 11.9 th/mm3 (4.0-11.0)
[2018-03-16 08:15] LABS: Anion Gap 6 meq/L (5-15); Blood Urea Nitrogen 15 mg/dL (7-18); Calcium 7.9 mg/dL (8.5-10.1); Carbon Dioxide 26.7 meq/L (21.0-32.0); Chloride 110 meq/L (98-107); Glomerular Filtration Rate Greater Than 89 mL/min (>89); Glucose,Random 86 mg/dL (74-106); Potassium 3.4 meq/L (3.5-5.1); Sodium 143 meq/L (136-145)
[2018-03-16] MEDS: Lactobacillus Acidophilus/L. Spores Tablet PO SCH ×3 (09:40→17:06)
[2018-03-16] MEDS: predniSONE 20 MG Tablet PO SCH (10:41)
[2018-03-16] MEDS ORDERED: Pharmacy Ordered Lab Info OTHER ONE (14:45)
[2018-03-16] MEDS ORDERED: Potassium Bicarbonate 25 MEQ Effervescent Tablet PO ONE (14:52)
[2018-03-16] MEDS ORDERED: Naloxone Inj 0.4 MG/ML Vial IV.PUSH PRN (15:21)
--- NOTE | 2018-03-16 15:27 | P.PN ---
Subjective Interval history: Follow-up hand infection. Complains of constant hand pain states he uses Dilaudid 4 mg 5 times a day prescribed by his oncologist. Discussed with ID, we need hand surgery consult secondary to hand infection with decreased range of motion of the wrist Physical Exam Vital signs: Vital Signs 03/15/18 16:00 03/15/18 20:00 03/15/18 21:18 Temperature 98.4 F 97.7 F Pulse Rate 69 58 L Respiratory Rate 14 16 20 Blood Pressure 144/75 H 143/81 H Pulse Oximetry 97 97 03/15/18 22:39 03/15/18 23:55 03/16/18 00:00 Temperature 97.9 F Pulse Rate 49 L 57 L Respiratory Rate 20 17 Blood Pressure 157/73 H Pulse Oximetry 99 03/16/18 02:54 03/16/18 02:55 03/16/18 04:00 Temperature 97.0 F L Pulse Rate 56 L Respiratory Rate 20 20 17 Blood Pressure 175/87 H Pulse Oximetry 97 03/16/18 04:12 03/16/18 06:00 03/16/18 06:23 Temperature Pulse Rate Respiratory Rate 20 20 Blood Pressure 170/72 H Pulse Oximetry 03/16/18 07:13 03/16/18 08:00 03/16/18 12:00 Temperature 98.0 F 98.3 F Pulse Rate 60 61 Respiratory Rate 18 18 18 Blood Pressure 161/87 H 173/83 H Pulse Oximetry 98 99 Intake & Output 03/15/18 03/16/18 03/16/18 18:59 06:59 18:59 Intake Total 1800 / 1800 1110 / 1110 50 / 50 Output Total 1000 / 1000 Balance 800 / 800 1110 / 1110 50 / 50 Weight 52 kg Intake: IV 600 / 600 350 / 350 50 / 50 Zosyn 3.375 GM Premix 50 ML @ 100 / 100 100 / 100 50 / 50 100 mls/hr IV.SIG Q8HR LAY Rx#: [id number] Vancomycin Inj 1,000 MG In NS 500 / 500 250 / 250 Inj 250 ML @ 250 mls/hr IV.SIG Q12H LAY Rx#:[id number] Oral 1200 / 1200 760 / 760 Output: Urine 1000 / 1000 Other: # Voids 3 # Bowel Movements 1 Narrative: chronically ill appearing and debilitated 62yo m aaox3 muliple abrasions to face and arms heart s1s2 reg lungs clear no wrr abd firm mod tender min dt, pos bs, ext left upper ext dosal hand w sig alicia and erythema, no localized open wound though multiple abrasions, no focal abscess, cant flex fingers and wrist due to pain / edema Skin is warm with scabs on the right face Results - Labs CBC & Chem 7: 03/16/18 06:46 03/16/18 06:46 Laboratory Results - last 24 hr 03/16/18 03/16/18 06:46 06:46 WBC 11.9 H RBC 3.97 L Hgb 9.7 L Hct 30.8 L MCV 77.5 L MCH 24.5 L MCHC 31.7 L RDW 18.8 H Plt Count 205 MPV 9.2 Neut % (Auto) 84.4 H Lymph % (Auto) 9.0 [place] % (Auto) 5.9 Eos % (Auto) 0.5 Baso % (Auto) 0.2 Neut # (Auto) 10.1 H Lymph # (Auto) 1.1 [place] # (Auto) 0.7 Eos # (Auto) 0.1 Baso # (Auto) 0.0 WBC Differential . Differential Comment Auto diff final Sodium 143 Potassium 3.4 L Chloride 110 H Carbon Dioxide 26.7 Anion Gap 6 BUN 15 Creatinine 0.74 Estimated GFR Greater than 89 Random Glucose 86 Calcium 7.9 L Magnesium 2.0 Microbiology 03/14/18 13:00 Blood - Peripheral Aerobic Blood Culture - Preliminary No growth in 2 days 03/14/18 13:00 Blood - Peripheral Anaerobic Blood Culture - Preliminary No growth in 2 days 03/14/18 13:11 Blood - Peripheral Aerobic Blood Culture - Preliminary No growth in 2 days 03/14/18 13:11 Blood - Peripheral Anaerobic Blood Culture - Preliminary No growth in 2 days - Imaging ITS Impressions Hand MRI 03/14/18 13:15 CONCLUSION: 1. No abscess or osteomyelitis of the left hand. 2. Nonspecific dorsal predominant cellulitis. 3. Mild tenosynovitis of extensor compartments 2 and 3. - Procedures none Assessment and Plan - Plan ACUTE CELLULITIS LEFT HAND w TENOSYNOVITIS of extenso compartments 2/3 - mri w no abscess, or osteo, cont iv abx, pain control and ID following, ryan vincent for now. Consult hand surgery. Counseled regarding narcotics will restart Dilaudid. IV morphine for breakthrough pain. E force queried LIVER CANCER end stage on salvage miladis HANNA w onc CAD w prior [place] cont home meds DYSLIPIDEMIA on statin HTN controslled CHRONIC HEP C ANEMIA - likely chronic HYPOKALEMIA - replace per protocol TOBACCO ABUSE / nicotine addiction - courtney shabazz counseling
--- NOTE | 2018-03-16 16:04 | P.PNID ---
Subjective Remarks: Patient states that he still has pain in his left arm. However the pain starts about senior living up the forearm and down to the hand. Pain affected the entire left arm yesterday. Redness is decreased. States that the pain is intense. Not able to close the hand to make a fist. Tiny pustular lesions at the inner wrist. Afebrile. Culture has no growth. 62-year-old white male with history of end-stage liver disease. The patient presented to the emergency department on 03/14/2018 with pain and swelling and redness of his left arm. He reports that this had been ongoing for the past few days. He fell into a thorn hernandez and had multiple thorn pokes to the hand. MRI was performed and it showed no abscess or osteomyelitis. Nonspecific dorsal predominant cellulitis is noted. Mild tenosynovitis of the extensor compartment 2 and 3 was noted as well. Past Medical History: PAST MEDICAL HISTORY: Anxiety, depression, hepatitis C, hypertension, lung cancer, liver cancer, skin cancer, history of cardiac catheterization. Allergies/Adverse Reactions: Allergies No Known Allergies Allergy (Verified 10/19/17 17:19) Objective Vital Signs 03/15/18 16:00 03/15/18 20:00 03/15/18 21:18 Temperature 98.4 F 97.7 F Pulse Rate 69 58 L Respiratory Rate 14 16 20 Blood Pressure 144/75 H 143/81 H Pulse Oximetry 97 97 03/15/18 22:39 03/15/18 23:55 03/16/18 00:00 Temperature 97.9 F Pulse Rate 49 L 57 L Respiratory Rate 20 17 Blood Pressure 157/73 H Pulse Oximetry 99 03/16/18 02:54 03/16/18 02:55 03/16/18 04:00 Temperature 97.0 F L Pulse Rate 56 L Respiratory Rate 20 20 17 Blood Pressure 175/87 H Pulse Oximetry 97 03/16/18 04:12 03/16/18 06:00 03/16/18 06:23 Temperature Pulse Rate Respiratory Rate 20 20 Blood Pressure 170/72 H Pulse Oximetry 03/16/18 07:13 03/16/18 08:00 03/16/18 12:00 Temperature 98.0 F 98.3 F Pulse Rate 60 61 Respiratory Rate 18 18 18 Blood Pressure 161/87 H 173/83 H Pulse Oximetry 98 99 Intake & Output 03/15/18 03/16/18 03/16/18 18:59 06:59 18:59 Intake Total 1800 / 1800 1110 / 1110 50 / 50 Output Total 1000 / 1000 Balance 800 / 800 1110 / 1110 50 / 50 Weight 52 kg Intake: IV 600 / 600 350 / 350 50 / 50 Zosyn 3.375 GM Premix 50 ML @ 100 / 100 100 / 100 50 / 50 100 mls/hr IV.SIG Q8HR LAY Rx#: [id number] Vancomycin Inj 1,000 MG In NS 500 / 500 250 / 250 Inj 250 ML @ 250 mls/hr IV.SIG Q12H LAY Rx#:[id number] Oral 1200 / 1200 760 / 760 Output: Urine 1000 / 1000 Other: # Voids 3 # Bowel Movements 1 03/14/18 13:00 Blood - Peripheral Aerobic Blood Culture - Preliminary No growth in 2 days 03/14/18 13:00 Blood - Peripheral Anaerobic Blood Culture - Preliminary No growth in 2 days 03/14/18 13:11 Blood - Peripheral Aerobic Blood Culture - Preliminary No growth in 2 days 03/14/18 13:11 Blood - Peripheral Anaerobic Blood Culture - Preliminary No growth in 2 days Lab - Hematology Results 03/16/18 06:46 WBC 11.9 H RBC 3.97 L Hgb 9.7 L Hct 30.8 L MCV 77.5 L MCH 24.5 L MCHC 31.7 L RDW 18.8 H Plt Count 205 MPV 9.2 Neut % (Auto) 84.4 H Lymph % (Auto) 9.0 [place] % (Auto) 5.9 Eos % (Auto) 0.5 Baso % (Auto) 0.2 Neut # (Auto) 10.1 H Lymph # (Auto) 1.1 [place] # (Auto) 0.7 Eos # (Auto) 0.1 Baso # (Auto) 0.0 WBC Differential . Differential Comment Auto diff final Lab - Chemistry Results 03/16/18 06:46 Sodium 143 Potassium 3.4 L Chloride 110 H Carbon Dioxide 26.7 Anion Gap 6 BUN 15 Creatinine 0.74 Estimated GFR Greater than 89 Random Glucose 86 Calcium 7.9 L Magnesium 2.0 Imaging: ITS Impressions Hand MRI 03/14/18 13:15 CONCLUSION: 1. No abscess or osteomyelitis of the left hand. 2. Nonspecific dorsal predominant cellulitis. 3. Mild tenosynovitis of extensor compartments 2 and 3. Physical Exam: PHYSICAL EXAMINATION: GENERAL: No acute distress. HEENT: Head is atraumatic. Extraocular movements grossly intact. Pupils reactive to light. No icterus. The patient has multiple excoriated lesions of the face and head. Oropharynx moist mucosa without lesions. NECK: No adenopathy or swelling. LUNGS: Decreased breath sounds. HEART: Regular S1 and S2. ABDOMEN: Flat, soft, no tenderness. EXTREMITIES: Diffuse muscle wasting. The left hand remain swollen and very tender on palpation at the wrist and the dorsum of the hand and distal forearm. There is erythema along the inner wrist area. There are scattered tiny white pustules at the inner wrist. Decreased motion at the wrist. Severe tenderness on palpation and increased warmth. The other extremities have no clubbing, cyanosis, or edema. SKIN: No rash. NEUROLOGIC: No gross focal findings. PSYCHIATRIC: The patient is calm and cooperative. Assessment and Plan - Plan IMPRESSION: Cellulitis of the left hand and left arm following thorn hernandez injury. No abscess noted on MRI of the hand but tenosynovitis noted. White blood cell count lower. RECOMMENDATIONS: 1. Continue vancomycin. 2. Continue piperacillin/tazobactam. 3. Follow blood cultures. 4. Hand surgeon to evaluate the hand. 5. Monitor response of the wound to current antibiotic treatment. Discussed with Dr. Ruiz.
[2018-03-16] MEDS: Morphine Inj 4 MG/ML Vial IV.PUSH PRN ×3 (17:06→23:44)
[2018-03-17] MEDS: Vancomycin Inj 1,000 MG in Sodium Chlor 0.9% Inj 250 ML IV.SIG SCH ×2 (02:52→15:41)
[2018-03-17] MEDS: Morphine Inj 4 MG/ML Vial IV.PUSH PRN ×7 (04:03→23:46)
[2018-03-17] MEDS: Piperacil/Tazo 3.375 GM Premix 50 ML IV.SIG SCH ×3 (05:32→21:08)
[2018-03-17] MEDS: Lactobacillus Acidophilus/L. Spores Tablet PO SCH ×3 (08:49→18:10)
[2018-03-17] MEDS ORDERED: SORAFENIB PO SCH (09:00)
--- NOTE | 2018-03-17 12:26 | P.PNID ---
Subjective Remarks: Patient states that he still has pain in his left arm. Pain now mostly confined to the left wrist. Started at the entire left arm and yesterday was mcfp up the forearm and down to the hand. Erythema at the left wrist. Unable to move the left wrist because of pain. Still not able to close the hand. Tiny white pustules and one white patch at the wrist. Afebrile. Culture has no growth. 62-year-old white male with history of end-stage liver disease. The patient presented to the emergency department on 03/14/2018 with pain and swelling and redness of his left arm. He reports that this had been ongoing for the past few days. He fell into a thorn hernandez and had multiple thorn pokes to the hand. MRI was performed and it showed no abscess or osteomyelitis. Nonspecific dorsal predominant cellulitis is noted. Mild tenosynovitis of the extensor compartment 2 and 3 was noted as well. Past Medical History: PAST MEDICAL HISTORY: Anxiety, depression, hepatitis C, hypertension, lung cancer, liver cancer, skin cancer, history of cardiac catheterization. Allergies/Adverse Reactions: Allergies No Known Allergies Allergy (Verified 10/19/17 17:19) Objective Vital Signs 03/16/18 16:00 03/16/18 20:00 03/17/18 00:00 Temperature 99.0 F 98.3 F 97.9 F Pulse Rate 68 70 61 Respiratory Rate 18 17 21 Blood Pressure 172/90 H 146/70 H 180/96 H Pulse Oximetry 97 99 99 03/17/18 04:00 03/17/18 08:00 Temperature 97.7 F 98.3 F Pulse Rate 52 L 57 L Respiratory Rate 17 18 Blood Pressure 167/80 H 166/81 H Pulse Oximetry 99 98 Intake & Output 03/16/18 03/17/18 03/17/18 18:59 06:59 18:59 Intake Total 1350 / 1350 600 / 600 Balance 1350 / 1350 600 / 600 Intake: IV 50 / 50 600 / 600 Zosyn 3.375 GM Premix 50 ML @ 50 / 50 100 / 100 100 mls/hr IV.SIG Q8HR LAY Rx#: [id number] Vancomycin Inj 1,000 MG In NS 500 / 500 Inj 250 ML @ 250 mls/hr IV.SIG Q12H LAY Rx#:[id number] Oral 1300 / 1300 Other: # Voids 4 1 Date of Last Bowel Movement 03/16/18 # Bowel Movements 1 1 03/14/18 13:00 Blood - Peripheral Aerobic Blood Culture - Preliminary No growth in 3 days 03/14/18 13:00 Blood - Peripheral Anaerobic Blood Culture - Preliminary No growth in 3 days 03/14/18 13:11 Blood - Peripheral Aerobic Blood Culture - Preliminary No growth in 3 days 03/14/18 13:11 Blood - Peripheral Anaerobic Blood Culture - Preliminary No growth in 3 days Lab - Hematology Results 03/16/18 06:46 WBC 11.9 H RBC 3.97 L Hgb 9.7 L Hct 30.8 L MCV 77.5 L MCH 24.5 L MCHC 31.7 L RDW 18.8 H Plt Count 205 MPV 9.2 Neut % (Auto) 84.4 H Lymph % (Auto) 9.0 [place] % (Auto) 5.9 Eos % (Auto) 0.5 Baso % (Auto) 0.2 Neut # (Auto) 10.1 H Lymph # (Auto) 1.1 [place] # (Auto) 0.7 Eos # (Auto) 0.1 Baso # (Auto) 0.0 WBC Differential . Differential Comment Auto diff final Lab - Chemistry Results 03/16/18 06:46 Sodium 143 Potassium 3.4 L Chloride 110 H Carbon Dioxide 26.7 Anion Gap 6 BUN 15 Creatinine 0.74 Estimated GFR Greater than 89 Random Glucose 86 Calcium 7.9 L Magnesium 2.0 Imaging: ITS Impressions Hand MRI 03/14/18 13:15 CONCLUSION: 1. No abscess or osteomyelitis of the left hand. 2. Nonspecific dorsal predominant cellulitis. 3. Mild tenosynovitis of extensor compartments 2 and 3. Physical Exam: PHYSICAL EXAMINATION: GENERAL: No acute distress. HEENT: No icterus. The patient has multiple excoriated lesions of the face and head. Oropharynx moist mucosa without lesions. NECK: No adenopathy or swelling. LUNGS: Decreased breath sounds. HEART: Regular S1 and S2. ABDOMEN: Flat, soft, no tenderness. EXTREMITIES: Diffuse muscle wasting. The left arm is much less swollen but still very tender on palpation at the wrist and the dorsum of the hand and distal forearm. There is erythema along the inner wrist area. There are scattered tiny white pustules at the inner wrist. Decreased motion at the wrist. Severe tenderness on palpation at the wrist and increased warmth. SKIN: No rash. NEUROLOGIC: No gross focal findings. PSYCHIATRIC: Calm and cooperative. Assessment and Plan - Plan IMPRESSION: severe Cellulitis of the left hand and left arm following thorn hernandez injury. Appears to be improving. Pain still severe. No abscess noted on MRI of the hand but tenosynovitis noted. White blood cell count lower. RECOMMENDATIONS: 1. Continue vancomycin. 2. Continue piperacillin/tazobactam. 3. Follow the blood culture.
--- NOTE | 2018-03-17 13:59 | P.PN ---
Subjective Interval history: Follow-up wrist infection. Able to increase range of motion. Continues to have pain over the wrist. Per hand surgery no evidence of abscess or septic arthritis Physical Exam Vital signs: Vital Signs 03/16/18 16:00 03/16/18 20:00 03/17/18 00:00 Temperature 99.0 F 98.3 F 97.9 F Pulse Rate 68 70 61 Respiratory Rate 18 17 21 Blood Pressure 172/90 H 146/70 H 180/96 H Pulse Oximetry 97 99 99 03/17/18 04:00 03/17/18 08:00 03/17/18 12:00 Temperature 97.7 F 98.3 F 97.8 F Pulse Rate 52 L 57 L 62 Respiratory Rate 17 18 18 Blood Pressure 167/80 H 166/81 H 172/89 H Pulse Oximetry 99 98 99 Intake & Output 03/16/18 03/17/18 03/17/18 18:59 06:59 18:59 Intake Total 1350 / 1350 600 / 600 Balance 1350 / 1350 600 / 600 Intake: IV 50 / 50 600 / 600 Zosyn 3.375 GM Premix 50 ML @ 50 / 50 100 / 100 100 mls/hr IV.SIG Q8HR LAY Rx#: [id number] Vancomycin Inj 1,000 MG In NS 500 / 500 Inj 250 ML @ 250 mls/hr IV.SIG Q12H LAY Rx#:[id number] Oral 1300 / 1300 Other: # Voids 4 1 Date of Last Bowel Movement 03/16/18 # Bowel Movements 1 1 Narrative: chronically ill appearing and debilitated 62yo m aaox3 muliple abrasions to face and arms heart s1s2 reg lungs clear no wrr abd firm mod tender min dt, pos bs, ext left upper ext dosal hand w sig alicia and erythema, no localized open wound though multiple abrasions, no focal abscess, i able to slightly flex fingers and wrist Skin is warm with scabs on the right face Results - Labs CBC & Chem 7: 03/16/18 06:46 03/16/18 06:46 Laboratory Results - last 24 hr 03/16/18 15:20 Vancomycin Trough 11.4 H Microbiology 03/14/18 13:00 Blood - Peripheral Aerobic Blood Culture - Preliminary No growth in 3 days 03/14/18 13:00 Blood - Peripheral Anaerobic Blood Culture - Preliminary No growth in 3 days 03/14/18 13:11 Blood - Peripheral Aerobic Blood Culture - Preliminary No growth in 3 days 03/14/18 13:11 Blood - Peripheral Anaerobic Blood Culture - Preliminary No growth in 3 days - Procedures none Assessment and Plan - Plan ACUTE CELLULITIS LEFT HAND w TENOSYNOVITIS of extenso compartments 2/3 - mri w no abscess, or osteo, cont iv abx, pain control and ID following, vanco zosyn for now. Per hand surgery no evidence of abscess or septic arthritis continue medical management. Counseled regarding narcotics will restart Dilaudid. IV morphine for breakthrough pain. E force queried LIVER CANCER end stage on salvage NEXVAR, fu w onc CAD w prior [place] cont home meds DYSLIPIDEMIA on statin HTN controslled CHRONIC HEP C ANEMIA - likely chronic HYPOKALEMIA - replace per protocol TOBACCO ABUSE / nicotine addiction - [facility]ney [facility] counseling Discharge Planning: Discharge when clinically improved
[2018-03-17] MEDS: NEXAVAR 200 MG PO SCH (15:40)
--- NOTE | 2018-03-17 18:14 | P.CON ---
History of Present Illness Service: Hand surgery Primary Care Provider: UNKNOWN Chief Complaint: Left dorsal hand cellulitis History of Present Illness: 62-year-old male who presented to the emergency department several days ago, having fallen into a thorn hernandez, with resultant left dorsal forearm cellulitis, which has been improving on IV antibiotics. Patient reports that his pain/ swelling/erythema has been improving daily. MRI failed to reveal undrained fluid collection nor signs of septic arthritis. Except as noted in the HPI review of systems negative to presenting complaint Family history noncontributory to presenting complaint Medication list reviewed (Zosyn, vancomycin) Medical/surgical history: Cardiac cath Angina pectoris Anxiety Cardiac catheterization as the cause of abnormal reaction of the patient, or of later complication, without mention of misadventure at the time of the procedure Chest pain Chronic pain Decreased vision Depression Dizziness Hepatitis C History of MRSA infection Hypertension Light-headedness Liver cancer Lung cancer Migraine Shortness of breath Skin cancer Social history positive cigarettes No known drug allergies PMFSH - History History Provided By: Patient - Medical History Medical History: Medical History (Last Reviewed 11/12/17 @ 09:05 by Evans Jones) Angina pectoris Anxiety Cardiac catheterization as the cause of abnormal reaction of the patient, or of later complication, without mention of misadventure at the time of the procedure Chest pain Chronic pain Decreased vision Depression Dizziness Hepatitis C History of MRSA infection Hypertension Light-headedness Liver cancer Lung cancer Migraine Shortness of breath Skin cancer - Surgical History Surgical History: Surgical History (Last Reviewed 11/12/17 @ 09:05 by Evans Jones) Hx of cardiac cath - Family History Family History: Family History (Last Updated 03/14/18 @ 15:41 by Brian Daniel MD) Other Osteoarthritis - Tobacco History Second Hand Smoke Exposure: Yes Tobacco Use In Past 30 Days: Yes Smoking Status: Heavy tobacco smoker Tobacco Type: Cigarettes - Alcohol History How Often Do You Have a Drink Containing Alcohol: Never - Substance Use History Substance History: Past History - Substance Use Type Alcohol Status: Sustained Remission Route Used: By Mouth Frequency: previous heavy daily drinker Last Used: 5 years ago - Travel History Recent Travel in the [place] Within the Last 8 Weeks: No Recent Travel Out of the Country Within the Last 8 Weeks: No - Immunization History Tetanus Immunization: >5 Years Hx Influenza Vaccine This Season: No Medications and Allergies Active Medications: Active Medications Acetaminophen (Tylenol) 650 mg PO Q4H PRN PRN Reason: Temp > 100.4 Al Hydroxide/Mg Hydroxide (Milk Of Sydnee Liq) 30 ml PO Q12H PRN PRN Reason: Mild Constipation Aspirin (Aspirin Chew) 81 mg PO DAILY [facility] Last Admin: 03/17/18 08:49 Dose: 81 mg Clonidine HCl (Catapres) 0.1 mg PO Q6H PRN PRN Reason: SEE LABEL COMMENTS Last Admin: 03/17/18 15:45 Dose: 0.1 mg Clonidine HCl (Catapres) 0.1 mg PO BID [facility] Enalaprilat (Vasotec Inj) 1.25 mg IV.PUSH Q6H PRN PRN Reason: SEE LABEL COMMENTS Hydromorphone HCl (Dilaudid) 4 mg PO 5 TIMES A DAY PRN PRN Reason: Acute Pain Last Admin: 03/17/18 14:16 Dose: 4 mg Vancomycin HCl 1,000 mg/ (Sodium Chloride) 250 mls @ 250 mls/hr IV.SIG Q12H [facility] Last Admin: 03/17/18 15:41 Dose: 250 mls/hr Piperacillin/Tazobactam/Dextrose (Zosyn 3.375 Gm Premix) 50 mls @ 100 mls/hr IV.SIG Q8HR [facility] Last Infusion: 03/17/18 14:56 Dose: Infused Lactobacillus Acidophilus (Lactinex) 1 tab PO TID [facility] Last Admin: 03/17/18 14:18 Dose: 1 tab Morphine Sulfate (Morphine Inj) 4 mg IV.PUSH Q3H PRN PRN Reason: BREAKTHROUGH PAIN Last Admin: 03/17/18 14:56 Dose: 4 mg Naloxone HCl (Narcan Inj) 0.4 mg IV.PUSH UNSCH PRN PRN Reason: SEE LABEL COMMENTS Nitroglycerin (Nitrostat Sl (Override)) 0.4 mg SL Q5M PRN PRN Reason: Chest Pain Ondansetron HCl (Zofran Inj) 4 mg IV.PUSH Q6H PRN PRN Reason: NAUSEA OR VOMITING Ondansetron HCl (Zofran Odt) 4 mg PO Q6H PRN PRN Reason: nausea/vomiting Patient Own Medication: Nexavar (Sorafenib) 200mg Tablet 0 each PO DAILY@0800 [facility] Last Admin: 03/17/18 15:40 Dose: 1 each Pharmacy Profile Note (Vancomycin Consult Pharmacy) 1 each OTHER UNSCH PRN PRN Reason: Pharmacy to dose Potassium Chloride (Klor-Con 10) 40 meq PO BID [facility] Last Admin: 03/17/18 08:49 Dose: 40 meq Ticagrelor (Brilinta) 90 mg PO BID [facility] Last Admin: 03/17/18 08:49 Dose: 90 mg Allergies Allergy/AdvReac Type Severity Reaction Status Date / Time No Known Allergies Allergy Verified 10/19/17 17:19 Home Medications Medication Instructions Recorded Confirmed Type aspirin 81 mg PO DAILY 11/11/17 03/14/18 History atorvastatin 40 mg PO DAILY 11/11/17 03/14/18 History clonidine HCl 0.1 mg PO DAILY 11/11/17 03/14/18 History hydromorphone 4 mg PO 5 TIMES A DAY PRN 11/11/17 03/14/18 History nitroglycerin 0.4 mg SUBLINGUAL Q5-15M PRN 11/11/17 03/14/18 History potassium chloride 40 meq PO BID 11/11/17 03/14/18 History ticagrelor [Brilinta] 90 mg PO BID 11/11/17 03/14/18 History naloxone [Narcan] 1 spray INTRANASAL Q2-3M PRN 03/14/18 03/14/18 History prednisone 5 mg PO DIRECTED 03/14/18 03/14/18 History sorafenib [Nexavar] 400 mg PO DAILY 03/16/18 03/16/18 History Physical Exam Vital signs: Vital Signs 03/16/18 20:00 03/17/18 00:00 03/17/18 04:00 Temperature 98.3 F 97.9 F 97.7 F Pulse Rate 70 61 52 L Respiratory Rate 17 21 17 Blood Pressure 146/70 H 180/96 H 167/80 H Pulse Oximetry 99 99 99 03/17/18 08:00 03/17/18 12:00 03/17/18 16:00 Temperature 98.3 F 97.8 F 98.0 F Pulse Rate 57 L 62 62 Respiratory Rate 18 18 19 Blood Pressure 166/81 H 172/89 H 199/93 H Pulse Oximetry 98 99 97 Intake & Output 03/16/18 03/17/18 03/17/18 18:59 06:59 18:59 Intake Total 1350 / 1350 600 / 600 50 / 50 Balance 1350 / 1350 600 / 600 50 / 50 Intake: IV 50 / 50 600 / 600 50 / 50 Zosyn 3.375 GM Premix 50 ML @ 50 / 50 100 / 100 50 / 50 100 mls/hr IV.SIG Q8HR LAY Rx#: [id number] Vancomycin Inj 1,000 MG In NS 500 / 500 Inj 250 ML @ 250 mls/hr IV.SIG Q12H LAY Rx#:[id number] Oral 1300 / 1300 Other: # Voids 4 1 Date of Last Bowel Movement 03/16/18 # Bowel Movements 1 1 Narrative: No apparent anxiety moist mucous membranes PERRLA skin without rash respirations nonlabored moves all 4 extremities to command digits warm well perfused Left upper extremity Sensation intact light touch distally Passive ranging of wrist from 10 degrees extension to 50 degrees flexion with minimal tenderness Ulnar dorsal wrist with 2 cm area of epidermal lysis Several centimeters of moderate erythema/tenderness (Patient reports that erythema had extended to his elbow and fingertips) No fluctuance appreciated Results - Labs CBC & Chem 7: 03/16/18 06:46 03/16/18 06:46 Assessment and Plan - Assessment (1) Cellulitis and abscess of hand Code(s): L03.119 - Cellulitis of unspecified part of limb; L02.519 - Cutaneous abscess of unspecified hand Status: Acute - Plan 62-year-old male with resolving left dorsal wrist cellulitis MRI report consistent with no undrained collections/no findings consistent with septic arthritis IV antibiotics per primary Please call with questions
[2018-03-18] MEDS: Vancomycin Inj 1,000 MG in Sodium Chlor 0.9% Inj 250 ML IV.SIG SCH ×2 (03:00→15:44)
[2018-03-18] MEDS: Piperacil/Tazo 3.375 GM Premix 50 ML IV.SIG SCH ×3 (05:42→21:14)
[2018-03-18] MEDS: Morphine Inj 4 MG/ML Vial IV.PUSH PRN ×5 (06:34→23:04)
--- NOTE | 2018-03-18 09:02 | P.PN ---
Subjective Interval history: Follow-up hand and wrist infection. Improving pain and ROM Physical Exam Vital signs: Vital Signs 03/17/18 12:00 03/17/18 16:00 03/17/18 17:00 Temperature 97.8 F 98.0 F Pulse Rate 62 62 Respiratory Rate 18 19 Blood Pressure 172/89 H 199/93 H 150/70 H Pulse Oximetry 99 97 03/17/18 20:00 03/18/18 00:00 03/18/18 04:00 Temperature 99.7 F H 98.4 F 97.8 F Pulse Rate 70 64 64 Respiratory Rate 18 17 16 Blood Pressure 163/88 H 163/82 H 177/89 H Pulse Oximetry 98 96 98 03/18/18 08:24 Temperature 98.2 F Pulse Rate 66 Respiratory Rate 14 Blood Pressure 170/91 H Pulse Oximetry 100 Intake & Output 03/17/18 03/18/18 03/18/18 18:59 06:59 18:59 Intake Total 1700 / 1700 1070 / 1070 Balance 1700 / 1700 1070 / 1070 Weight 52.3 kg Intake: IV 300 / 300 350 / 350 Zosyn 3.375 GM Premix 50 ML @ 50 / 50 100 / 100 100 mls/hr IV.SIG Q8HR LAY Rx#: [id number] Vancomycin Inj 1,000 MG In NS 250 / 250 250 / 250 Inj 250 ML @ 250 mls/hr IV.SIG Q12H LAY Rx#:[id number] Oral 1400 / 1400 720 / 720 Other: # Voids 3 3 # Bowel Movements 1 Narrative: chronically ill appearing and debilitated 62yo m aaox3 heart s1s2 reg lungs clear no wrr abd firm nontender non dt, pos bs, ext left upper ext wrist with improving edema and erythema, no localized open wound though multiple abrasions, no focal abscess, able to slightly flex fingers and wrist Skin is warm with scabs on the right face Results - Labs CBC & Chem 7: 03/16/18 06:46 03/18/18 08:30 Microbiology 03/14/18 13:00 Blood - Peripheral Aerobic Blood Culture - Preliminary No growth in 3 days 03/14/18 13:00 Blood - Peripheral Anaerobic Blood Culture - Preliminary No growth in 3 days 03/14/18 13:11 Blood - Peripheral Aerobic Blood Culture - Preliminary No growth in 3 days 03/14/18 13:11 Blood - Peripheral Anaerobic Blood Culture - Preliminary No growth in 3 days - Imaging ITS Impressions Hand MRI 03/14/18 13:15 CONCLUSION: 1. No abscess or osteomyelitis of the left hand. 2. Nonspecific dorsal predominant cellulitis. 3. Mild tenosynovitis of extensor compartments 2 and 3. - Procedures none Assessment and Plan - Plan ACUTE CELLULITIS LEFT HAND w TENOSYNOVITIS of extenso compartments 2/3 - mri w no abscess, or osteo, cont iv abx, pain control and ID following, vanco zosyn for now. Blood cultures negative to date. Per hand surgery no evidence of abscess or septic arthritis continue medical management. Counseled regarding narcotics will restart Dilaudid. IV morphine for breakthrough pain. E force queried LIVER CANCER end stage on salvage miladis HANNA w onc CAD w prior [place] cont home meds DYSLIPIDEMIA on statin HTN add Norvasc for better control CHRONIC HEP C ANEMIA - likely chronic HYPOKALEMIA - replace per protocol TOBACCO ABUSE / nicotine addiction - nicoderm, cessation counseling Discharge Planning: Discharge when cleared by infectious disease
[2018-03-18 09:52] LABS: Glomerular Filtration Rate Greater Than 89 mL/min (>89)
[2018-03-18] MEDS: Lactobacillus Acidophilus/L. Spores Tablet PO SCH ×3 (09:55→17:44)
[2018-03-18] MEDS: NEXAVAR 200 MG PO SCH (09:55)
[2018-03-18] MEDS: amLODIPine 5 MG Tablet PO SCH (09:55)
--- NOTE | 2018-03-18 16:09 | P.PNID ---
Subjective Remarks: Patient states the pain in his left arm is improving. Pain now mostly confined to the left wrist. Started at the entire left arm and yesterday was senior living up the forearm and down to the hand. Erythema and swelling still present at the left wrist. Unable to move the left wrist because of pain. Able to close the left hand today. Afebrile. Culture has no growth. 62-year-old white male with history of end-stage liver disease. The patient presented to the emergency department on 03/14/2018 with pain and swelling and redness of his left arm. He reports that this had been ongoing for the past few days. He fell into a thorn hernandez and had multiple thorn pokes to the hand. MRI was performed and it showed no abscess or osteomyelitis. Nonspecific dorsal predominant cellulitis is noted. Mild tenosynovitis of the extensor compartment 2 and 3 was noted as well. Past Medical History: PAST MEDICAL HISTORY: Anxiety, depression, hepatitis C, hypertension, lung cancer, liver cancer, skin cancer, history of cardiac catheterization. Allergies/Adverse Reactions: Allergies No Known Allergies Allergy (Verified 10/19/17 17:19) Objective Vital Signs 03/17/18 17:00 03/17/18 20:00 03/18/18 00:00 Temperature 99.7 F H 98.4 F Pulse Rate 70 64 Respiratory Rate 18 17 Blood Pressure 150/70 H 163/88 H 163/82 H Pulse Oximetry 98 96 03/18/18 04:00 03/18/18 08:00 03/18/18 08:24 Temperature 97.8 F 98.2 F 98.2 F Pulse Rate 64 66 66 Respiratory Rate 16 14 14 Blood Pressure 177/89 H 170/91 H 170/91 H Pulse Oximetry 98 100 100 03/18/18 12:00 Temperature 98.9 F Pulse Rate 65 Respiratory Rate 17 Blood Pressure 145/77 H Pulse Oximetry 98 Intake & Output 03/17/18 03/18/18 03/18/18 18:59 06:59 18:59 Intake Total 1700 / 1700 1070 / 1070 50 / 50 Balance 1700 / 1700 1070 / 1070 50 / 50 Weight 52.3 kg Intake: IV 300 / 300 350 / 350 50 / 50 Zosyn 3.375 GM Premix 50 ML @ 50 / 50 100 / 100 50 / 50 100 mls/hr IV.SIG Q8HR LAY Rx#: [id number] Vancomycin Inj 1,000 MG In NS 250 / 250 250 / 250 Inj 250 ML @ 250 mls/hr IV.SIG Q12H LAY Rx#:[id number] Oral 1400 / 1400 720 / 720 Other: # Voids 3 3 # Bowel Movements 1 03/14/18 13:00 Blood - Peripheral Aerobic Blood Culture - Preliminary No growth in 4 days 03/14/18 13:00 Blood - Peripheral Anaerobic Blood Culture - Preliminary No growth in 4 days 03/14/18 13:11 Blood - Peripheral Aerobic Blood Culture - Preliminary No growth in 4 days 03/14/18 13:11 Blood - Peripheral Anaerobic Blood Culture - Preliminary No growth in 4 days Lab - Chemistry Results 03/18/18 08:30 Creatinine 0.80 Estimated GFR Greater than 89 Imaging: ITS Impressions Hand MRI 03/14/18 13:15 CONCLUSION: 1. No abscess or osteomyelitis of the left hand. 2. Nonspecific dorsal predominant cellulitis. 3. Mild tenosynovitis of extensor compartments 2 and 3. Physical Exam: PHYSICAL EXAMINATION: GENERAL: No acute distress. HEENT: No icterus. The patient has multiple excoriated lesions of the face and head. Oropharynx moist mucosa without lesions. NECK: No adenopathy or swelling. LUNGS: Decreased breath sounds. HEART: Regular S1 and S2. ABDOMEN: Flat, soft, no tenderness. EXTREMITIES: Diffuse muscle wasting. The left wrist still has swelling and erythema. Still very tender on palpation at the wrist and the dorsum of the hand and distal forearm. There is tenderness along the palmar aspect of the wrist. There are scattered tiny white pustules at the inner wrist. Decreased motion at the wrist. SKIN: No rash. NEUROLOGIC: No gross focal findings. PSYCHIATRIC: Calm and cooperative. Assessment and Plan - Plan IMPRESSION: severe Cellulitis of the left hand and left arm following thorn hernandez injury. Appears to be improving. Pain still severe. No abscess noted on MRI of the hand but tenosynovitis noted. White blood cell count elevated. RECOMMENDATIONS: 1. Continue vancomycin. 2. Continue piperacillin/tazobactam. 3. Elevation of the left hand. I think he may need to be continued on IV antibiotics at least a few more days.
[2018-03-19] MEDS: Vancomycin Inj 1,000 MG in Sodium Chlor 0.9% Inj 250 ML IV.SIG SCH ×2 (02:38→14:57)
[2018-03-19] MEDS ORDERED: Pharmacy Ordered Lab Info OTHER ONE (02:45)
[2018-03-19] MEDS: Morphine Inj 4 MG/ML Vial IV.PUSH PRN ×6 (04:25→22:59)
[2018-03-19 06:33] LABS: Glomerular Filtration Rate Greater Than 89 mL/min (>89)
[2018-03-19] MEDS: Piperacil/Tazo 3.375 GM Premix 50 ML IV.SIG SCH ×4 (06:39→21:26)
--- NOTE | 2018-03-19 08:07 | P.PN ---
Subjective Interval history: Follow-up hypertension and upper extremity cellulitis. Per infectious disease, patient will need additional IV antibiotics for the next few days. Patient with purulent discharge from left wrist blister. Pending CT of the wrist. Patient wants to go home if there is no abscess Physical Exam Vital signs: Vital Signs 03/18/18 08:24 03/18/18 12:00 03/18/18 16:00 Temperature 98.2 F 98.9 F 98.6 F Pulse Rate 66 65 65 Respiratory Rate 14 17 17 Blood Pressure 170/91 H 145/77 H 149/79 H Pulse Oximetry 100 98 100 03/18/18 20:00 03/18/18 20:55 03/18/18 23:50 Temperature 98.3 F Pulse Rate 65 62 59 L Respiratory Rate 20 Blood Pressure 170/87 H Pulse Oximetry 98 03/19/18 00:00 03/19/18 03:51 03/19/18 03:55 Temperature 98.8 F 98.7 F Pulse Rate 58 L 63 61 Respiratory Rate 22 20 Blood Pressure 174/84 H 167/80 H Pulse Oximetry 97 99 Intake & Output 03/18/18 03/19/18 03/19/18 18:59 06:59 18:59 Intake Total 2200 / 2200 540 / 540 50 / 50 Output Total 250 / 250 Balance 2200 / 2200 290 / 290 50 / 50 Weight 52.3 kg Intake: IV 300 / 300 300 / 300 50 / 50 Zosyn 3.375 GM Premix 50 ML @ 50 / 50 50 / 50 50 / 50 100 mls/hr IV.SIG Q8HR LAY Rx#: [id number] Vancomycin Inj 1,000 MG In NS 250 / 250 250 / 250 Inj 250 ML @ 250 mls/hr IV.SIG Q12H LAY Rx#:[id number] Oral 1900 / 1900 240 / 240 Output: Urine 250 / 250 Other: # Voids 3 Date of Last Bowel Movement 03/17/18 # Bowel Movements 1 Narrative: chronically ill appearing and debilitated 62yo m aaox3 heart s1s2 reg lungs clear no wrr abd firm nontender non dt, pos bs, ext left upper ext wrist with improving edema and erythema, no localized open wound though multiple abrasions, no focal abscess, able to slightly flex fingers and wrist Skin is warm with scabs on the right face Results - Labs CBC & Chem 7: 03/16/18 06:46 03/19/18 04:49 Laboratory Results - last 24 hr 03/18/18 03/19/18 03/19/18 08:30 02:37 04:49 Creatinine 0.80 0.72 Estimated GFR Greater than 89 Greater than 89 Vancomycin Trough 14.4 H Microbiology 03/14/18 13:00 Blood - Peripheral Aerobic Blood Culture - Preliminary No growth in 4 days 03/14/18 13:00 Blood - Peripheral Anaerobic Blood Culture - Preliminary No growth in 4 days 03/14/18 13:11 Blood - Peripheral Aerobic Blood Culture - Preliminary No growth in 4 days 03/14/18 13:11 Blood - Peripheral Anaerobic Blood Culture - Preliminary No growth in 4 days - Procedures none Assessment and Plan - Plan ACUTE CELLULITIS LEFT HAND w TENOSYNOVITIS of extenso compartments 2/3 - mri w no abscess, or osteo. Blood cultures negative to date. Per hand surgery no evidence of abscess or septic arthritis continue medical management. Per infectious disease, patient will need additional IV antibiotics for the next few days. F/u new wd cx and wrist CT may need drainage if there is abscess. Counseled regarding narcotics will restart Dilaudid. IV morphine for breakthrough pain. E force queried LIVER CANCER end stage on salvage NEXVAR, fu w onc CAD w prior [place] cont home meds DYSLIPIDEMIA on statin HTN add Norvasc for better control CHRONIC HEP C ANEMIA - likely chronic HYPOKALEMIA - replace per protocol TOBACCO ABUSE / nicotine addiction - nicoderm, cessation counseling Discharge Planning: Discharge when cleared by infectious disease
[2018-03-19] MEDS: Lactobacillus Acidophilus/L. Spores Tablet PO SCH ×3 (08:33→18:51)
[2018-03-19] MEDS: amLODIPine 5 MG Tablet PO SCH (08:34)
[2018-03-19] MEDS: NEXAVAR 200 MG PO SCH (08:34)
[2018-03-19] MEDS ORDERED: predniSONE 10 MG Tablet PO SCH (09:00)
--- NOTE | 2018-03-19 13:18 | P.PNID ---
Subjective Remarks: Patient continues to have pain in the left hand. Still markedly swollen. Still has significant erythema. White blister formation over the wrist was unroofed and pus returned. Afebrile. Culture sent. 62-year-old white male with history of end-stage liver disease. The patient presented to the emergency department on 03/14/2018 with pain and swelling and redness of his left arm. He reports that this had been ongoing for the past few days. He fell into a thorn hernandez and had multiple thorn pokes to the hand. MRI was performed and it showed no abscess or osteomyelitis. Nonspecific dorsal predominant cellulitis is noted. Mild tenosynovitis of the extensor compartment 2 and 3 was noted as well. Past Medical History: PAST MEDICAL HISTORY: Anxiety, depression, hepatitis C, hypertension, lung cancer, liver cancer, skin cancer, history of cardiac catheterization. Allergies/Adverse Reactions: Allergies No Known Allergies Allergy (Verified 10/19/17 17:19) Objective Vital Signs 03/18/18 16:00 03/18/18 20:00 03/18/18 20:55 Temperature 98.6 F 98.3 F Pulse Rate 65 65 62 Respiratory Rate 17 20 Blood Pressure 149/79 H 170/87 H Pulse Oximetry 100 98 03/18/18 23:50 03/19/18 00:00 03/19/18 03:51 Temperature 98.8 F 98.7 F Pulse Rate 59 L 58 L 63 Respiratory Rate 22 20 Blood Pressure 174/84 H 167/80 H Pulse Oximetry 97 99 03/19/18 03:55 03/19/18 08:00 Temperature 98.1 F Pulse Rate 61 60 Respiratory Rate 17 Blood Pressure 180/96 H Pulse Oximetry 98 Intake & Output 03/18/18 03/19/18 03/19/18 18:59 06:59 18:59 Intake Total 2200 / 2200 540 / 540 50 / 50 Output Total 250 / 250 Balance 2200 / 2200 290 / 290 50 / 50 Weight 52.3 kg Intake: IV 300 / 300 300 / 300 50 / 50 Zosyn 3.375 GM Premix 50 ML @ 50 / 50 50 / 50 50 / 50 100 mls/hr IV.SIG Q8HR LAY Rx#: [id number] Vancomycin Inj 1,000 MG In NS 250 / 250 250 / 250 Inj 250 ML @ 250 mls/hr IV.SIG Q12H LAY Rx#:[id number] Oral 1900 / 1900 240 / 240 Output: Urine 250 / 250 Other: # Voids 3 Date of Last Bowel Movement 03/17/18 # Bowel Movements 1 03/14/18 13:00 Blood - Peripheral Aerobic Blood Culture - Final No growth in 5 days 03/14/18 13:00 Blood - Peripheral Anaerobic Blood Culture - Final No growth in 5 days 03/14/18 13:11 Blood - Peripheral Aerobic Blood Culture - Final No growth in 5 days 03/14/18 13:11 Blood - Peripheral Anaerobic Blood Culture - Final No growth in 5 days Lab - Chemistry Results 03/18/18 03/19/18 08:30 04:49 Creatinine 0.80 0.72 Estimated GFR Greater than 89 Greater than 89 Imaging: ITS Impressions Hand MRI 03/14/18 13:15 CONCLUSION: 1. No abscess or osteomyelitis of the left hand. 2. Nonspecific dorsal predominant cellulitis. 3. Mild tenosynovitis of extensor compartments 2 and 3. Physical Exam: PHYSICAL EXAMINATION: GENERAL: No acute distress. HEENT: No icterus. The patient has multiple excoriated lesions of the face and head. Oropharynx moist mucosa without lesions. NECK: No adenopathy or swelling. LUNGS: Decreased breath sounds. HEART: Regular S1 and S2. ABDOMEN: Flat, soft, no tenderness. EXTREMITIES: Diffuse muscle wasting. The left wrist still has swelling and erythema. Still very tender on palpation at the wrist There is tenderness along the palmar aspect of the wrist. White pustules have coalesced at the inner wrist. Decreased motion at the wrist. SKIN: No rash. NEUROLOGIC: No gross focal findings. PSYCHIATRIC: Calm and cooperative. Assessment and Plan - Plan IMPRESSION: Severe Cellulitis of the left hand and left arm following thorn hernandez injury Tenosynovitis of the left hand and left arm following thorn hernandez injury. Pain and swelling still severe. Slow to improve. Positive drainage from superficial blister overlying the wrist. White blood cell count elevated. RECOMMENDATIONS: 1. Continue vancomycin. 2. Continue piperacillin/tazobactam. 3. Culture of fluid from the blister. 4. Obtain CT scan of the hand to make sure there is no deep abscess that may need to be drained. CT scan ordered by myself. May need aspiration of the joint. Culture was taken by myself. Monitor culture to determine appropriate antibiotic. Discussed with Dr. Ruiz.
--- NOTE | 2018-03-19 18:28 | CT ---
EXAM DATE: 03/19/2018 5:58 PM EST AGE/SEX: 62 years / Male INDICATIONS: Abscess. Left hand and wrist swelling on lateral side. CLINICAL DATA: This is the patient's initial encounter. Patient reports that signs and symptoms have been present for 1 day and indicates a pain score of 3/10. MEDICAL/SURGICAL HISTORY: Hepatitis C. Carcinoma, lung. Liver cancer. None. RADIATION DOSE: 14.50 CTDI (mGy) COMPARISON: No prior exams available for comparison. TECHNIQUE: Multiple contiguous axial images were acquired using a multi-row detector CT scanner afte r the intravenous administration of 70 ml Omnipaque 350 (iohexol) nonionic water-soluble contrast as a single exam dose. Multiplanar reconstruction was performed in the sagittal and coronal planes. Using automated exposure control and adjustment of the mA and/or kV according to patient size, radiat ion dose was kept as low as reasonably achievable to obtain optimal diagnostic quality images. DICOM format image data is available electronically for review and comparison. FINDINGS: Bones: The bony structures about the hand are in normal alignment. The distal radius, distal ulna a nd carpus are intact. No fracture is seen. There is no periosteal new bone formation or destructive change. Joints: No significant arthropathy or bony hypertrophy is seen. Soft Tissues: Diffuse soft tissue swelling greatest along the dorsum and lateral wrist. There is an ill-defined oval fluid collection measuring up to at least 4.2 x 3 x 1 cm in diameter along the dorsa l and lateral aspect of the distal radius with patchy areas of adjacent enhancement. There are no foc al gas bubbles. There is no radiopaque foreign body identified. Other: No foreign bodies seen. Post Contrast: Ill-defined areas of patchy enhancement along the area of fluid collection.. CONCLUSION: 1. Ill-defined oval fluid collection along the dorsal and lateral aspect of the distal radius with p atchy areas of enhancement. There is surrounding soft tissue swelling. The findings are nonspecific a nd of concern for focal infection and possible abscess. 2. No underlying bony abnormalities to suggest osteomyelitis. Electronically signed by: Evaristo Cameron MD 03/19/2018 6:27 PM EST
[2018-03-20] MEDS: Vancomycin Inj 1,000 MG in Sodium Chlor 0.9% Inj 250 ML IV.SIG SCH (02:34)
[2018-03-20] MEDS: Morphine Inj 4 MG/ML Vial IV.PUSH PRN ×2 (02:34→08:29)
[2018-03-20] MEDS: Piperacil/Tazo 3.375 GM Premix 50 ML IV.SIG SCH (05:58)
[2018-03-20 08:25] VITALS: BP 156/79; PULSE 60; RESP 20; TEMP 98.5; O2SAT 98
[2018-03-20] MEDS: amLODIPine 5 MG Tablet PO SCH (08:27)
[2018-03-20] MEDS: NEXAVAR 200 MG PO SCH (08:27)
[2018-03-20] MEDS: Lactobacillus Acidophilus/L. Spores Tablet PO SCH (08:32)
--- NOTE | 2018-03-20 10:00 | P.PN ---
Physical Exam Vital signs: Vital Signs 03/19/18 12:00 03/19/18 13:00 03/19/18 16:00 Temperature 98.4 F 99.1 F Pulse Rate 64 65 Respiratory Rate 17 18 Blood Pressure 183/90 H 156/80 H 166/84 H Pulse Oximetry 99 98 03/19/18 20:00 03/20/18 00:00 03/20/18 04:00 Temperature 98.7 F 97.9 F 98.4 F Pulse Rate 66 65 63 Respiratory Rate 17 17 17 Blood Pressure 160/70 H 165/77 H 143/68 H Pulse Oximetry 97 96 96 03/20/18 08:00 Temperature 98.5 F Pulse Rate 60 Respiratory Rate 20 Blood Pressure 156/79 H Pulse Oximetry 98 Intake & Output 03/19/18 03/20/18 03/20/18 18:59 06:59 18:59 Intake Total 820 / 820 1330 / 1330 Output Total 1000 / 1000 Balance 820 / 820 330 / 330 Weight 52 kg Intake: IV 100 / 100 550 / 550 Zosyn 3.375 GM Premix 50 ML @ 100 / 100 50 / 50 100 mls/hr IV.SIG Q8HR LAY Rx#: [id number] Vancomycin Inj 1,000 MG In NS 500 / 500 Inj 250 ML @ 250 mls/hr IV.SIG Q12H LAY Rx#:[id number] Oral 720 / 720 780 / 780 Output: Urine 1000 / 1000 Other: # Voids 5 Date of Last Bowel Movement 03/17/18 # Bowel Movements 1 Results - Labs CBC & Chem 7: 03/16/18 06:46 03/19/18 04:49 Microbiology 03/14/18 13:00 Blood - Peripheral Aerobic Blood Culture - Final No growth in 5 days 03/14/18 13:00 Blood - Peripheral Anaerobic Blood Culture - Final No growth in 5 days 03/14/18 13:11 Blood - Peripheral Aerobic Blood Culture - Final No growth in 5 days 03/14/18 13:11 Blood - Peripheral Anaerobic Blood Culture - Final No growth in 5 days - Imaging Impressions Hand CT 03/19/18 00:00 CONCLUSION: 1. Ill-defined oval fluid collection along the dorsal and lateral aspect of the distal radius with patchy areas of enhancement. There is surrounding soft tissue swelling. The findings are nonspecific and of concern for focal infection and possible abscess. 2. No underlying bony abnormalities to suggest osteomyelitis. - Procedures none Assessment and Plan - Plan ACUTE CELLULITIS LEFT HAND w TENOSYNOVITIS of extenso compartments 2/3 - mri w no abscess, or osteo. Blood cultures negative to date. Per hand surgery no evidence of abscess or septic arthritis continue medical management. Per infectious disease, patient will need additional IV antibiotics for the next few days. F/u new wd cx and wrist CT may need drainage if there is abscess. Counseled regarding narcotics will restart Dilaudid. IV morphine for breakthrough pain. E force queried LIVER CANCER end stage on salvage NEXVAR, fu w onc CAD w prior [place] cont home meds DYSLIPIDEMIA on statin HTN add Norvasc for better control CHRONIC HEP C ANEMIA - likely chronic HYPOKALEMIA - replace per protocol TOBACCO ABUSE / nicotine addiction - nicoderm, cessation counseling Discharge Planning: Discharge when cleared by infectious disease
--- NOTE | 2018-03-20 15:17 | P.DS ---
Date of admission: 03/14/18 15:03 Primary care physician: UNKNOWN Brief History from admission: Mr. Olivera is a 62-year-old male. He says earlier this week he fell into a thorn hernandez. He feels that 1 of the thorns stuck in deep in his left forearm and it felt like it was down to the bone. 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 He has had a gradual increase in swelling, redness, and pain at his left forearm. Clear evidence for cellulitis is present. MRI is pending to evaluate for abscess or osteomyelitis. No other complaints from the patient at this time. At baseline he also has coronary artery disease and has a previous myocardial infarction. He says he takes nitroglycerin as needed for this condition. He is not reporting any chest pain at this time or recently. DS: Medications - Discharge Medications Prescriptions: acidophilus-sporogenes [Acidophilus Ex Str (L. sporog)] 1 tab PO TID #30 tab amlodipine [Norvasc] 5 mg PO DAILY #30 tab DS: Summary Hospital Course: ACUTE CELLULITIS LEFT HAND w TENOSYNOVITIS of extenso compartments 2/3 - mri w no abscess, or osteo. Blood cultures negative to date. Per hand surgery no evidence of abscess or septic arthritis continue medical management. Per infectious disease, patient will need additional IV antibiotics for the next few days. F/u new wd cx. Wrist CT possible abscess, will alert hand surgery. Counseled regarding narcotics will restart Dilaudid. IV morphine for breakthrough pain. E force queried LIVER CANCER end stage on salvage NEXVAR, fu w onc CAD w prior [place] cont home meds DYSLIPIDEMIA on statin HTN add Norvasc for better control CHRONIC HEP C ANEMIA - likely chronic HYPOKALEMIA - replace per protocol TOBACCO ABUSE / nicotine addiction - nicoderm, cessation counseling 03/20/18. Informed by nursing patient eloped. Protocol instituted to locate pt to no avail - Time Spent with Patient Total time spent providing and/or coordinating discharge services: Greater than 30 minutes - Quality: VTE Deep Vein Thrombosis/Pulmonary Embolism Present on Admission: No Exam Vital signs: Vital Signs 03/19/18 16:00 03/19/18 20:00 03/20/18 00:00 Temperature 99.1 F 98.7 F 97.9 F Pulse Rate 65 66 65 Respiratory Rate 18 17 17 Blood Pressure 166/84 H 160/70 H 165/77 H Pulse Oximetry 98 97 96 03/20/18 04:00 03/20/18 08:00 Temperature 98.4 F 98.5 F Pulse Rate 63 60 Respiratory Rate 17 20 Blood Pressure 143/68 H 156/79 H Pulse Oximetry 96 98 Intake & Output 03/19/18 03/20/18 03/20/18 18:59 06:59 18:59 Intake Total 820 / 820 1330 / 1330 Output Total 1000 / 1000 Balance 820 / 820 330 / 330 Weight 52 kg Intake: IV 100 / 100 550 / 550 Zosyn 3.375 GM Premix 50 ML @ 100 / 100 50 / 50 100 mls/hr IV.SIG Q8HR LAY Rx#: [id number] Vancomycin Inj 1,000 MG In NS 500 / 500 Inj 250 ML @ 250 mls/hr IV.SIG Q12H LAY Rx#:[id number] Oral 720 / 720 780 / 780 Output: Urine 1000 / 1000 Other: # Voids 5 Date of Last Bowel Movement 03/17/18 # Bowel Movements 1 Narrative: chronically ill appearing and debilitated 62yo m aaox3 heart s1s2 reg lungs clear no wrr abd firm nontender non dt, pos bs, ext left upper ext wrist with improving edema and erythema, no localized open wound though multiple abrasions, no focal abscess, able to slightly flex fingers and wrist Skin is warm with scabs on the right face Results Procedures completed during hospitalization: none Labs on day of discharge: Preliminary micro results at discharge 03/19/18 12:50 Wound Culture - Preliminary Wound - Hand No growth in 24 hours - Impressions ITS Impressions Hand MRI 03/14/18 13:15 CONCLUSION: 1. No abscess or osteomyelitis of the left hand. 2. Nonspecific dorsal predominant cellulitis. 3. Mild tenosynovitis of extensor compartments [address] 03/19/18 00:00 CONCLUSION: 1. Ill-defined oval fluid collection along the dorsal and lateral aspect of the distal radius with patchy areas of enhancement. There is surrounding soft tissue swelling. The findings are nonspecific and of concern for focal infection and possible abscess. 2. No underlying bony abnormalities to suggest osteomyelitis. Discharge Plan - Discharge Disposition Patient Disposition: 07 Against Medical Advice - Discharge Condition Condition: Stable - Discharge Details Discharge Comment: dc when cleared by infectious disease - Physicians Team Primary Care Provider: UNKNOWN, Attending Provider: Otto Ruiz Other Providers: Viktor Mix MD ; [employer],Insurance ; Tobias Marie MD
[2018-03-24] MEDS ORDERED: predniSONE 5 MG Tablet PO SCH (09:00)
== END 2018-03-20 10:29 | disposition left against medical advice (07) ==
LOC: NEPB 11:14 → NEDA 15:03 → N07 17:52
PROVIDERS: ADMIT Internal Medicine; ATTEND Internal Medicine